=== PATIENT | male | born 1985 | race Caucasian/White ===

== ENCOUNTER 2024-01-27 14:44 | Outpatient (CLI) | payer MEDICAID, SELFPAY ==
[2024-01-27 15:42] LABS: Basophils Absolute Auto 0.1 K/mm3 (0.0-0.1); Basophils Percent Auto 1.2 % (0.2-1.2); Eosinophils Absolute Auto 0.1 K/mm3 (0-0.3); Eosinophils Percent Auto 1.7 % (0-4.4); Hematocrit 42.9 % (42.0-52.0); Hemoglobin 13.9 g/dL (14.0-18.0); Immature Granulocyte Absolute 0.03 K/mm3 (0.00-0.031); Immature Granulocyte Percent A 0.4 % (0-0.5); Lymphocytes Absolute Auto 2.39 K/mm3 (0.9-3.2); Lymphocytes Percent Auto 30.8 % (18.3-44.2); Mean Corpuscular HGB Conc 32.4 g/dl (32-36); Mean Corpuscular Hemoglobin 27.7 pg (26-34); Mean Corpuscular Volume 85.5 fl (80-100); Monocytes Absolute Auto 0.6 K/mm3 (0.1-0.6); Monocytes Percent Auto 8.2 % (2.6-8.5); Neutrophils Absolute Auto 4.5 K/mm3 (1.3-6.7); Neutrophils Percent Auto 57.7 % (45.5-73.1); Platelet Count Result 311 k/mm3 (150-375); Red Blood Count 5.02 M/mm3 (4.6-6.20); Red Cell Distribution Width 13.1 % (11.5-14.5); White Blood Count 7.8 K/mm3 (4.5-10.0)
[2024-01-27 15:58] LABS: Alanine Aminotransferase 65 U/L (6-50); Albumin Level 4.3 g/dL (3.5-5.1); Alkaline Phosphatase 74 U/L (38-126); Anion Gap 11 mmol/L (4-12); Aspartate Amino Transferase 47 U/L (17-59); Bilirubin,Total 0.4 mg/dL (0.2-1.3); Blood Urea Nitrogen 12 mg/dL (9-20); Calcium 9.2 mg/dL (8.4-10.2); Carbon Dioxide 24 mmol/L (22-30); Chloride 107 mmol/L (98-107); Estimated Glomerular Filt Rate > 60; Glucose 95 mg/dL (65-110); Potassium 3.8 mmol/L (3.4-5.0); Sodium 142 mmol/L (137-145)
== END 2024-01-27 14:45 | disposition home or self-care (01) ==
LOC: ANHLAB 14:47
PROVIDERS: Visit Provider Internal Medicine Hematology & Oncology
DX: C71.9 Malignant neoplasm of brain, unspecified (principal)
CPT/HCPCS: 36415; 80053; 85025

== ENCOUNTER 2024-02-17 09:20 | Outpatient (CLI) | payer OTHER, SELFPAY ==
[2024-02-17 09:30] LABS: Basophils Absolute Auto 0.1 K/mm3 (0.0-0.1); Basophils Percent Auto 0.9 % (0.2-1.2); Eosinophils Absolute Auto 0.1 K/mm3 (0-0.3); Eosinophils Percent Auto 1.3 % (0-4.4); Hematocrit 45.1 % (42.0-52.0); Hemoglobin 14.6 g/dL (14.0-18.0); Immature Granulocyte Percent A 1.5 % (0-0.5); Lymphocytes Absolute Auto 1.74 K/mm3 (0.9-3.2); Mean Corpuscular HGB Conc 32.4 g/dl (32-36); Mean Corpuscular Hemoglobin 27.2 pg (26-34); Mean Platelet Volume 9.6 fl (7.4-10.4); Monocytes Absolute Auto 0.7 K/mm3 (0.1-0.6); Monocytes Percent Auto 10.8 % (2.6-8.5); Neutrophils Percent Auto 59.5 % (45.5-73.1); Platelet Count Result 287 k/mm3 (150-375); Red Blood Count 5.37 M/mm3 (4.6-6.20); Red Cell Distribution Width 13.2 % (11.5-14.5); White Blood Count 6.7 K/mm3 (4.5-10.0)
[2024-02-17 09:36] LABS: Blood Urea Nitrogen 12 mg/dL (8-26); Carbon Dioxide 26 mmol/L (22-30); Chloride 103 mmol/L (98-109); Estimated Glomerular Filt Rate > 60; Glucose 79 mg/dL (70-105); Ionized Calcium (POC) 1.21 mmol/L (1.11-1.31); Sodium 142 mmol/L (138-146)
== END 2024-02-17 09:21 | disposition home or self-care (01) ==
LOC: ANHLAB 09:22
PROVIDERS: Visit Provider Internal Medicine Hematology & Oncology
DX: C71.9 Malignant neoplasm of brain, unspecified (principal)
CPT/HCPCS: 36415; 80047; 85025

== ENCOUNTER 2024-03-19 10:32 | Outpatient (CLI) | payer OTHER, SELFPAY ==
[2024-03-19 10:42] LABS: Basophils Absolute Auto 0.1 K/mm3 (0.0-0.1); Basophils Percent Auto 1.2 % (0.2-1.2); Eosinophils Absolute Auto 0.1 K/mm3 (0-0.3); Eosinophils Percent Auto 2.6 % (0-4.4); Hematocrit 45.2 % (42.0-52.0); Hemoglobin 14.6 g/dL (14.0-18.0); Immature Granulocyte Absolute 0.07 K/mm3 (0.00-0.031); Immature Granulocyte Percent A 1.4 % (0-0.5); Lymphocytes Absolute Auto 0.91 K/mm3 (0.9-3.2); Lymphocytes Percent Auto 18.3 % (18.3-44.2); Mean Corpuscular HGB Conc 32.3 g/dl (32-36); Mean Corpuscular Hemoglobin 26.9 pg (26-34); Mean Corpuscular Volume 83.2 fl (80-100); Mean Platelet Volume 8.8 fl (7.4-10.4); Monocytes Absolute Auto 0.6 K/mm3 (0.1-0.6); Monocytes Percent Auto 11.1 % (2.6-8.5); Neutrophils Absolute Auto 3.2 K/mm3 (1.3-6.7); Neutrophils Percent Auto 65.4 % (45.5-73.1); Platelet Count Result 175 k/mm3 (150-375); Red Blood Count 5.43 M/mm3 (4.6-6.20); Red Cell Distribution Width 14.5 % (11.5-14.5)
[2024-03-19 11:53] LABS: Alanine Aminotransferase 36 U/L (6-50); Albumin Level 4.2 g/dL (3.5-5.1); Alkaline Phosphatase 69 U/L (38-126); Anion Gap 8 mmol/L (4-12); Aspartate Amino Transferase 32 U/L (17-59); Bilirubin,Total 0.6 mg/dL (0.2-1.3); Blood Urea Nitrogen 14 mg/dL (9-20); Carbon Dioxide 27 mmol/L (22-30); Chloride 106 mmol/L (98-107); Estimated Glomerular Filt Rate > 60; Glucose 107 mg/dL (65-110); Potassium 4.2 mmol/L (3.4-5.0); Sodium 141 mmol/L (137-145)
== END 2024-03-19 10:33 | disposition home or self-care (01) ==
LOC: ANHLAB 10:33
PROVIDERS: Visit Provider Internal Medicine Hematology & Oncology
DX: C71.9 Malignant neoplasm of brain, unspecified (principal)
CPT/HCPCS: 36415; 80053; 85025

== ENCOUNTER 2024-04-12 12:48 | Outpatient (CLI) | payer OTHER, SELFPAY ==
--- NOTE | ~2024-04-12 | MR_ITS ---
EXAMINATION: MR brain/brain stem wo/w con DATE: 04/12/2024 13:34 INDICATION: Glioma. TECHNIQUE: Magnetic resonance imaging (MRI) of the brain and brainstem was performed without and with 20 mL MultiHance intravenous contrast. COMPARISON: None. FINDINGS: There are changes of resection of the parafalcine frontal lobes and adjacent corpus callosu m. There is increased T2-weighted signal intensity around the area of resection, consistent with glio sis versus vasogenic edema versus changes of radiation therapy. There is no acute ischemic infarct. T here are blood products versus calcification at the right posterior resection margin characterized by increased T1-weighted signal intensity. There is no nodular contrast enhancement to suggest residual or recurrent tumor. There is thickening and enhancement of the dura in the surgical bed, consistent with surgical change. There is ex vacuo dilatation of the frontal horns of the lateral ventricles. Th ere is extensive mucosal thickening in the paranasal sinuses. The orbits are normal. The mastoid air cells are normal. IMPRESSION: 1. No specific evidence of residual or recurrent tumor. Reviewed, dictated and finalized at location A. [facility]
== END 2024-04-12 12:49 | disposition home or self-care (01) ==
PROVIDERS: Visit Provider Radiology Radiation Oncology
DX: C71.8 Malignant neoplasm of overlapping sites of brain (principal)
CPT/HCPCS: 70553; A9577

== ENCOUNTER 2024-06-08 11:19 | Outpatient (CLI) | payer OTHER, SELFPAY ==
--- OUTSIDE RECORDS SUMMARY | 2024-06-08 11:22 | XMS_ITS | Clinical Summary ---
Author Organization [facility] Familia hubbard Kunal Address [address] [place] [address] Care Team Providers Care Rug Repairer Name Role Phone Unavailable Primary Care Provider Unavailabl e Allergies No known active allergies Medications ondansetron (ZOFRAN) 8 mg Tablet Take 1 Tablet (8 mg) by mouth every 8 hours as needed for Nausea/Emesis. 30 Tablet 1 4 Active temozolomide (Temodar) 100 mg capsule Take 4 capsules (400 mg) by mouth daily before breakfast on Days 1 through 5 every 28 days 20 Capsule 5 4 Active Active Problems No known active problems Encounters Date Type Department Care Team Description 04/30/2024 Specialty Pharmacy [facility] [address] [place] [phone] Cristel Nolen, PHARMACIST Specialty Pharmacy Refill Coordination 04/23/2024 Refill [facility] - [place] [address] [place] [phone] Genaro Dubose MD 04/19/2024 Specialty Pharmacy [facility] [address] [place] [phone] Cristel Nolen, PHARMACIST Specialty Pharmacy Clinical Intervention 04/19/2024 Specialty Pharmacy [facility] [address] [place] [phone] Cristel Nolen, PHARMACIST Specialty Pharmacy Prior Auth Coordination 04/19/2024 Orders Only [facility] - [place] [address] [place] [address] Genaro Dubose MD 04/18/2024 4:30 PM TABLET REPAIR Telephone Check Up [facility] - [place] [address] [place] [address] Genaro Dubose MD 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/17/2024 Telephone [facility] - [place] [address] [place] [address] Genaro Dubose MD Missed Appt 03/29/2024 Orders Only [facility] - [place] [address] [place] [address] Genaro Dubose MD 03/23/2024 11:00 AM TABLET REPAIR Office Visit [facility] - [place] [address] [place] [address] Genaro Dubose MD Oligodendroglioma (CMS/HCC) (Primary Dx) 03/21/2024 Orders Only [facility] - [place] [address] [place] [address] Genaro Dubose MD Oligodendroglioma (CMS/HCC) (Primary Dx) from Last 3 Months Family History Medical History Relation Name Comments No Known Problems Brother 1 Heart Disease Brother 2 No Known Problems Child No Known Problems Father No Known Problems Sister Relation Name Status Comments Brother 1 Alive Brother 2 Alive Child Alive Father Mother Alive Sister Alive Social History Tobacco Use Types Packs/Day Years Used Date Smoking Tobacco: Never Tobacco Cessation:Counseling Given: Not Answered Alcohol Use Standard Drinks/Week Comments Yes 0 (1 standard drink = 0.6 oz pure alcohol) on the weekends two or three beers Sex and Gender Information Value Date Recorded Sex Assigned at Not on file Legal Sex Male 3:13 PM CDT Gender Identity Not on file Sexual Orientation Not on file Last Filed Vital Signs Vital Sign Reading Time Taken Comments Blood Pressure 119/90 03/23/2024 10:55 AM TABLET REPAIR Pulse 84 03/23/2024 10:52 AM TABLET REPAIR Temperature 36.9 ??C (98.4 ??F) 03/23/2024 10:52 AM C Respiratory Rate 16 03/23/2024 10:52 AM TABLET REPAIR Oxygen Saturation 95% 03/23/2024 10:52 AM TABLET REPAIR Inhaled Oxygen Concentration - - Weight 98 kg (216 lb) 03/23/2024 10:52 AM TABLET REPAIR Height 182.9 cm (6') 01/27/2024 2:11 PM CDT Body Mass Index 29.29 01/27/2024 2:11 PM CDT Plan of Treatment Upcoming Encounters Date Type Department Care Team (Late st Contact Info) Description 06/08/2024 11:45 AM TABLET REPAIR Office Visit [facility] - [place] [address] [facility] [address] [place] [address] Genaro Dubose MD [address] [facility] [address] [place] [address] Health Maintenance Due Date Last Done Comments Pre-Diabetes and Diabetes Screening 1986 DTAP/TDAP/TD VACCINES (1 - Tdap) 2005 Preventative Visit-Managed Medicaid 2005 INFLUENZA VACCINE (#1) 2023 COVID-19 Vaccine (3 - 2023-2 5 season) 2024 09/14/2020, 08/17/2020 HEPATITIS B VACCINES Completed 05/15/1998, 12/26/1997, 11/21/1997 HPV VACCINES Aged Out No longer eligi ble based on patient's age to complete this topic Procedures Procedure Name Priority Date/Time Associated Diagnosis Comments COMPREHENSIVE METABOLIC PANEL Routine 03/19/2024 10:31 AM TABLET REPAIR CBC WITH DIFFERENTIAL Routine 03/19/2024 8:15 AM TABLET REPAIR from Last 3 Months Results * COMPREHENSIVE METABOLIC PANEL (03/19/2024 10:31 AM TABLET REPAIR) Blood us Genaro Dubose MD CHEMISTRY ORDERABLES Final Resu lt * CBC WITH DIFFERENTIAL (03/19/2024 8:15 AM TABLET REPAIR) Blood us Genaro Dubose MD HEMATOLOGY ORDERABLES Final Res ult from Last 3 Months Insurance MEDICAID [employer]
--- OUTSIDE RECORDS SUMMARY | 2024-06-08 11:22 | XMS_ITS | Continuity of Care Document ---
Author Organization [facility] Address [address] [place] [address] [address] [place] [address] Phone Care Team Providers Care Manager Utilization Name Role Phone Ros Sosa Unavailable Unavailable Procedures Procedure Date Remove Foreign Body From Eye Advance Directives Directive Yes / No Effective Date File Name No Information Encounters Encounter Description Practice Location Reason(s) For Visit Diagnoses Date Provider Providers Copied on Encounter [facility], [address] [place] [address] [address], [place], [place], [id number], [place] tel:[phone] [facility] No Information [address] Sommer. [address] [facility] , [address], [place], [address], [place]. tel:[phone] Family History Family Member Type Diagnosis Age At Onset No Information Payers Payer name Insurance type Covered republican ID Authoriza tion(s) No Information Social History Type Description Quantity Date Captured Comments Sex Male Smoking Status No Information Chief Complaint And Reason For Visit No Information Reason For Referral Reason For Referral No Information History Of Present Illness Encounter Date Complaint History Of Prese nt Illness No Information Functional Status Date Functional Assessmen t No Information Instructions Date Instruction Additional Infor mation No Information Assessments Type Assessment Date No Information Patient Care Teams Name Effective Dates (start - stop) Status Members No Information
--- OUTSIDE RECORDS SUMMARY | 2024-06-08 11:22 | XMS_ITS | Patient Health Summary ---
Author Organization [facility] Address [address] [place] [address] Care Team Providers Care Date Night Caregiver Name Role Phone Unavailable Primary Care Provider Unavailabl e Note from [facility],non-owned Affiliates and Associated Physician Practices is amultiple site organization consisting of ambulatory clinics and hospital sitesin [place], [place], [place]. This disclosure is being madepursuant to the Care Everywhere program and may not contain all information available regarding this patient. Last updated 18.[facility] Allergies No known active allergies Medications * Be aware that medications may not be up to date on this document. Alwaysverify current medications with the patient. * dexAMETHasone (Decadron) 4 MG tablet(Started 11/16/2023) Take 1 (one) tablet by mouth 3 times daily for 1 day, THEN 1 (one) tablet 2 times daily for 2 days,THEN 0.5 (one-half) tablet 3 times daily for 2 days, THEN 0.5 (one-half) tablet 2 times daily for 30 days. * prochlorperazine (Compazine) 10 MG tablet(Started 12/26/2023) Take 1 (one) tablet by mouth every 6 hours as needed for Nausea/Vomiting 11 refills by 12/25/2024 * sulfamethoxazole-trimethoprim (Bactrim; Septra) 400-80 MG tablet(Started 12/26/2023) Take 1 (one) tablet by mouth every Tuesday, Tuesday & Tuesday 3 refills by 12/25/2024 * temozolomide (Temodar) 140 MG capsule(Started 01/06/2024) TAKE ONE CAPSULE BY MOUTH ONCE DAILY WITH 20MG CAPSULE, ON AN EMPTY STOMACH ONE HOUR BEFORE RADIATION FOR 42 DAYS * temozolomide (Temodar) 20 MG capsule(Started 01/06/2024) TAKE ONE CAPSULE BY MOUTH ONCE DAILY WITH 140MG CAPSULE, ON AN EMPTY STOMACH, ONE HOUR BEFORE RADIATION FOR 42 DAYS Active Problems Problem Noted Date Diagnosed Date 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 Monthly or less 11/03/2023 Q2: How many drinks containi ng alcohol do you have on a typical day when you are drinking? 1 or 2 11/03/2023 Q3: How often do you have si x or more drinks on one occasion? Never 11/03/2023 Overall Financial Resource Strain (CARDIA) Answe r Date Recorded How hard is it for you to pa y for the very basics like food, housing, medical care, and heating? Not hard at all 11/03/2023 PHQ-2 Answer Date Recorded Patient Health Questionnaire-2 Score 0 11/30/2023 [facility] - Occupational Stress Questionnaire Answer Date Recorded Do you feel stress - tense, restless, nervous, or anxious, or unable to sleep at night because your mind is troubled all the time - these days? Only a little 11/03/2023 Hunger Vital Sign Answer Date Recorded Within the past 12 months, y ou worried that your food would run out before you got the money to buy more. Never true 11/03/19 Within the past 12 months, t he food you bought just didn't last and you didn't have money to get more. Never true 11/03/2023 PRAPARE - Transportation Answer Date Re corded In the past 12 months, has l ack of transportation kept you from medical appointments or from getting medications? No 10/08 In the past 12 months, has l ack of transportation kept you from meetings, work, or from getting things needed for daily living? No 11/03/2023 Housing Stability Vital Sign Answer Andrey e Recorded In the last 12 months, was t here a time when you were not able to pay the mortgage or rent on time? No 11/03/2023 In the last 12 months, how many places have you lived? 1 11/03/2023 In the last 12 months, was t here a time when you did not have a steady place to sleep or slept in a skilled nursing (including now)? No 11/03/2023 Sex and Gender Information Value Date Recorded Sex Assigned at Not on file Gender Identity Not on file Sexual Orientation Not on file Last Filed Vital Signs Vital Sign Reading Time Taken Comments Blood Pressure 112/80 12/27/2023 9:45 AM CDT Pulse 84 12/27/2023 9:45 AM CDT Temperature 36.8 ??C (98.3 ??F) 12/27/2023 9:45 AM CD T Respiratory Rate 18 12/27/2023 9:45 AM CDT Oxygen Saturation 96% 12/27/2023 9:45 AM CDT Inhaled Oxygen Concentration 30% 11/10/2023 8 :18 AM CDT Weight 94.8 kg (209 lb) 12/27/2023 9:45 AM CDT Height 181.3 cm (5' 11.38 ) 12/26/2023 4:18 PM C DT Body Mass Index 28.84 12/26/2023 4:18 PM CDT Medical Devices Implanted Type Area Geological Survey Field Assistant Device Identifier Shelf Expiration Date Model / Serial / Lot Graft Tissue Drgn + Bvn Clgn Mtrx 5x4in Implanted:Qty: 1 on 11/09/2023 by Guillermo Tapia MD at [facility] Brain [employer] [id number] / / Cover Bur Hl .4mm 7mm Unv Neuro Iii Ti Implanted:Qty: 4 on 11/09/2023 by Miky Barger MD at [facility] Cranial [place] Craniomaxillofacial [id number] / / Screw 1.5mm 4mm Slf Drl Ax Stab Unv Implanted:Qty: 15 on 11/09/2023 by Miky Barger MD at [facility] Cranial [place] Craniomaxillofacial [id number] / / Cerebroflo Evd Catheter Implanted:Qty: 1 on 11/09/2023 by Miky Barger MD at [facility] Brain 01/13/[id number] [phone] Procedures * MRI BRAIN WWO CONTRAST(Performed 12/24/2023) Performed for Brain tumor (HCC) * CREATININE - POCT INTERFACED(Performed 12/24/2023) * APHERESIS/TRANSFUSION ORDER(Performed 11/16/2023) * CT HEAD WO CONTRAST(Performed 11/15/2023) Performed for Brain mass * DIFFERENTIAL MANUAL(Performed 11/15/2023) * PHOSPHORUS BLOOD(Performed 11/15/2023) * MAGNESIUM BLOOD(Performed 11/15/2023) * PTT SLH(Performed 11/15/2023) * PT-INR SLH(Performed 11/15/2023) * BASIC METABOLIC PANEL (CALCIUM TOTAL)(Performed 11/15/2023) * CBC W AUTO DIFFERENTIAL(Performed 11/15/2023) * GLUCOSE - POINT OF CARE(Performed 11/14/2023) * DIFFERENTIAL MANUAL(Performed 11/14/2023) * PTT SLH(Performed 11/14/2023) * PT-INR SLH(Performed 11/14/2023) * BASIC METABOLIC PANEL (CALCIUM TOTAL)(Performed 11/14/2023) * CBC W AUTO DIFFERENTIAL(Performed 11/14/2023) * GLUCOSE - POINT OF CARE(Performed 11/13/2023) * GLUCOSE - POINT OF CARE(Performed 11/13/2023) * GLUCOSE - POINT OF CARE(Performed 11/13/2023) * GLUCOSE - POINT OF CARE(Performed 11/13/2023) * DIFFERENTIAL MANUAL(Performed 11/13/2023) * PTT SLH(Performed 11/13/2023) * PT-INR SLH(Performed 11/13/2023) * BASIC METABOLIC PANEL (CALCIUM TOTAL)(Performed 11/13/2023) * CBC W AUTO DIFFERENTIAL(Performed 11/13/2023) * PREPARE RBC LEUKOREDUCED UNIT(Performed 11/13/2023) * GLUCOSE - POINT OF CARE(Performed 11/12/2023) * GLUCOSE - POINT OF CARE(Performed 11/12/2023) * MRI BRAIN WWO CONTRAST(Performed 11/12/2023) Performed for Brain mass * GLUCOSE - POINT OF CARE(Performed 11/12/2023) * GLUCOSE - POINT OF CARE(Performed 11/12/2023) * OT EVAL AND TREAT(Performed 11/12/2023) * DIFFERENTIAL MANUAL(Performed 11/12/2023) * PTT SLH(Performed 11/12/2023) * PT-INR SLH(Performed 11/12/2023) * BASIC METABOLIC PANEL (CALCIUM TOTAL)(Performed 11/12/2023) * CBC W AUTO DIFFERENTIAL(Performed 11/12/2023) * GLUCOSE - POINT OF CARE(Performed 11/11/2023) * GLUCOSE - POINT OF CARE(Performed 11/11/2023) * DIFFERENTIAL MANUAL(Performed 11/11/2023) * PTT SLH(Performed 11/11/2023) * PT-INR SLH(Performed 11/11/2023) * BASIC METABOLIC PANEL (CALCIUM TOTAL)(Performed 11/11/2023) * CBC W AUTO DIFFERENTIAL(Performed 11/11/2023) * TRIGLYCERIDES BLOOD(Performed 11/11/2023) * GLUCOSE - POINT OF CARE(Performed 11/10/2023) * GLUCOSE - POINT OF CARE(Performed 11/10/2023) * EXTUBATION(Performed 11/10/2023) * CT HEAD WO CONTRAST(Performed 11/10/2023) Performed for Brain mass * DIFFERENTIAL MANUAL(Performed 11/10/2023) * PTT SLH(Performed 11/10/2023) * PT-INR SLH(Performed 11/10/2023) * BASIC METABOLIC PANEL (CALCIUM TOTAL)(Performed 11/10/2023) * CBC W AUTO DIFFERENTIAL(Performed 11/10/2023) * CT HEAD WO CONTRAST(Performed 11/09/2023) Performed for Brain mass * TRANSFUSE FRESH FROZEN PLASMA UNIT(S)(Performed 11/09/2023) * PERIPHERAL IV NOTE(Performed 11/09/2023) * CBC W/O DIFFERENTIAL(Performed 11/09/2023) Performed for Brain mass * TRANSFUSE RED BLOOD CELL LEUKOREDUCED UNIT(S)(Performed 11/09/2023) * PREPARE FFP UNIT(S)(Performed 11/09/2023) * PREPARE FFP UNIT(S)(Performed 11/09/2023) * PREPARE RBC LEUKOREDUCED UNIT(Performed 11/09/2023) Performed for Brain mass * BLOOD GAS+COOX+LYTES+METAB ARTERIAL POCT(Performed 11/09/2023) * MRI BRAIN WWO CONT INTRAOP(Performed 11/09/2023) Performed for Brain mass * PERIPHERAL BLOCK(Performed 11/09/2023) * BLOOD GAS+COOX+LYTES+METAB ARTERIAL POCT(Performed 11/09/2023) * BLOOD GAS ART+LYTES+METAB+COOX POC NOTIF(Performed 11/09/2023) Performed for Brain mass * FISH 1P/19Q(Performed 11/09/2023) Performed for Brain mass * IDH1+IDH2 MUTATION ANALYSIS TISSUE(Performed 11/09/2023) Performed for Brain mass * BLOOD GAS ART+LYTES+METAB+COOX POC NOTIF(Performed 11/09/2023) Performed for Brain mass * PATHOLOGY TISSUE(Performed 11/09/2023) Performed for Brain mass * LAB MISC TEST (NOT BLOOD)(Performed 11/09/2023) Performed for Pneumocephalus * LAB MISC TEST (NOT BLOOD)(Performed 11/09/2023) Performed for Pneumocephalus * BLOOD GAS+COOX+LYTES+METAB ARTERIAL POCT(Performed 11/09/2023) * BLOOD GAS ART+LYTES+METAB+COOX POC NOTIF(Performed 11/09/2023) Performed for Brain mass * ENDOTRACHEAL TUBE NOTE(Performed 11/09/2023) * ARTERIAL LINE NOTE(Performed 11/09/2023) * ME OPEN SKULL INFRATENT EXPLORE(Performed 11/09/2023) Performed for Brain mass * GLUCOSE - POINT OF CARE(Performed 11/09/2023) * BLOOD TYPE VERIFICATION(Performed 11/09/2023) * TYPE + SCREEN PANEL(Performed 11/09/2023) * PTT SLH(Performed 11/09/2023) * PT-INR SLH(Performed 11/09/2023) * BASIC METABOLIC PANEL (CALCIUM TOTAL)(Performed 11/09/2023) * CBC W AUTO DIFFERENTIAL(Performed 11/09/2023) * GLUCOSE - POINT OF CARE(Performed 11/09/2023) * GLUCOSE - POINT OF CARE(Performed 11/08/2023) * CT HEAD WO CONTRAST(Performed 11/08/2023) Performed for Brain mass * GLUCOSE - POINT OF CARE(Performed 11/08/2023) * GLUCOSE - POINT OF CARE(Performed 11/08/2023) * PTT SLH(Performed 11/08/2023) * PT-INR SLH(Performed 11/08/2023) * BASIC METABOLIC PANEL (CALCIUM TOTAL)(Performed 11/08/2023) * CBC W AUTO DIFFERENTIAL(Performed 11/08/2023) * GLUCOSE - POINT OF CARE(Performed 11/07/2023) * GLUCOSE - POINT OF CARE(Performed 11/07/2023) * GLUCOSE - POINT OF CARE(Performed 11/07/2023) * GLUCOSE - POINT OF CARE(Performed 11/07/2023) * PTT SLH(Performed 11/07/2023) * PT-INR SLH(Performed 11/07/2023) * BASIC METABOLIC PANEL (CALCIUM TOTAL)(Performed 11/07/2023) * CBC W AUTO DIFFERENTIAL(Performed 11/07/2023) * GLUCOSE - POINT OF CARE(Performed 11/06/2023) * GLUCOSE - POINT OF CARE(Performed 11/06/2023) * GLUCOSE - POINT OF CARE(Performed 11/06/2023) * GLUCOSE - POINT OF CARE(Performed 11/06/2023) * PT-INR SLH(Performed 11/06/2023) * BASIC METABOLIC PANEL (CALCIUM TOTAL)(Performed 11/06/2023) * CBC W AUTO DIFFERENTIAL(Performed 11/06/2023) * GLUCOSE - POINT OF CARE(Performed 11/05/2023) * GLUCOSE - POINT OF CARE(Performed 11/05/2023) * GLUCOSE - POINT OF CARE(Performed 11/05/2023) * EKG 12-LEAD(Performed 11/05/2023) Performed for Brain mass * GLUCOSE - POINT OF CARE(Performed 11/05/2023) * BASIC METABOLIC PANEL (CALCIUM TOTAL)(Performed 11/05/2023) * CBC W AUTO DIFFERENTIAL(Performed 11/05/2023) * GLUCOSE - POINT OF CARE(Performed 11/05/2023) * GLUCOSE - POINT OF CARE(Performed 11/04/2023) * MRI BRAIN WO CONTRAST(Performed 11/04/2023) Performed for Brain mass * GLUCOSE - POINT OF CARE(Performed 11/04/2023) * BASIC METABOLIC PANEL (CALCIUM TOTAL)(Performed 11/04/2023) * CBC W AUTO DIFFERENTIAL(Performed 11/04/2023) * GLUCOSE - POINT OF CARE(Performed 11/04/2023) * GLUCOSE - POINT OF CARE(Performed 11/03/2023) * CT HEAD WO CONTRAST(Performed 11/03/2023) Performed for Brain mass * CT ANGIO BRAIN(Performed 11/03/2023) Performed for Brain mass * GLUCOSE - POINT OF CARE(Performed 11/03/2023) * MRI BRAIN WWO CONTRAST(Performed 11/03/2023) Performed for Brain mass * CT CHEST ABDOMEN PELVIS W CONT(Performed 11/03/2023) Performed for Brain mass * TEG 6 GLOBAL HEMOSTASIS W/ LYSIS(Performed 11/03/2023) * TEG 6S PLATELET MAPPING(Performed 11/03/2023) * PT-INR SLH(Performed 11/03/2023) * CT HEAD WO CONTRAST(Performed 11/03/2023) Performed for Chronic nonintractable headache, unspecified headache type * PT-INR SLH(Performed 11/02/2023) * LIPASE BLOOD(Performed 11/02/2023) * COMPREHENSIVE METABOLIC PANEL(Performed 11/02/2023) * CBC W AUTO DIFFERENTIAL(Performed 11/02/2023) Results * MRI BRAIN WWO CONTRAST (12/24/2023 8:24 AM CDT) Only the most recent of3 resultswithin the time period is included. Anatomical Region Laterality Modality Head Magnetic Resonan ce 12/31/2023 12:3 3 PM CDT Impressions 12/31/2023 12:45 PM CDT IMPRESSION: 1. Evolving postoperative changes of bifrontal craniotomy for resection of a mass involving the bilateral frontal lobes with decrease vasogenic edema surrounding the resection cavity as detailed above. 2. A small amount of irregular/linear enhancement along the resection margins likely represent postsurgical changes, although residual tumor cannot be excluded. In addition, enhancement can be obscured by the presence of intrinsic T1 intensities of the blood product within the resection cavity. Continued short-term follow-up brain MRI without and with contrast is recommended to monitor interval change. > Interpreting Provider: Kassandra Mast MD on 12/31/2023 12:45 PM Narrative 12/31/2023 12:45 PM CDT PROCEDURE: ??MRI BRAIN WWO CONTRAST, DATE/TIME OF EXAM: ??12/24/2023 8:24 AM, LOCATION ??[facility] INDICATION: D49.6: Brain tumor (HCC) ADDITIONAL CLINICAL INFORMATION: Ordering Provider Reason For Exam: ??eval for post op changes Technologist Note: Additional: TECHNIQUE: MRI of the brain was performed prior to and following the uneventful administration of intravenous contrast according to a tumor protocol. CONTRAST: GADOBUTROL 1 MMOL/ML IV SSM SO:8.5 mL COMPARISON: 11/12/2023. FINDINGS: Redemonstration of postoperative changes of bifrontal craniotomy for resection of a mass involving the bilateral frontal lobes. Pneumocephalus has resolved. The extra-axial fluid collection underlying the craniotomy site has decreased. A large resection cavity is again noted involving the medial aspect of the frontal lobes and the anterior corpus callosum. The hemorrhage in the resection cavity and the vasogenic edema surrounding the resection cavity have decreased since the prior study with decreased mass effect on the adjacent structures and the frontal horns of the lateral ventricles. Pachymeningeal enhancement in the frontal regions is likely postoperative changes. There is a small amount of irregular/linear enhancement along the resection margins. However, enhancement can be obscured by the presence of intrinsic T1 intensities of the blood product within the resection cavity. No evidence of acute cerebral infarction is seen. No evidence of acute or chronic hemorrhage is identified. There is mild cerebral volume loss with associated ex vacuo ventricular dilatation. No midline shift. The posterior fossa, brainstem, and craniocervical junction appear normal. The visualized portions of the orbits, paranasal sinuses, and mastoids appear normal. Normal flow voids are demonstrated in the carotid arteries and basilar artery. The calvarium and visualized cervical spine appear normal. Procedure Note Kassandra Mast MD - 12/31/2023 PROCEDURE: MRI BRAIN WWO CONTRAST, DATE/TIME OF EXAM: 12/24/2023 8:24AM, LOCATION [facility] INDICATION: D49.6: Brain tumor (HCC) ADDITIONAL CLINICAL INFORMATION: Ordering Provider Reason For Exam: eval for post op changes Technologist Note: Additional: TECHNIQUE: MRI of the brain was performed prior to and following the uneventful administration of intravenous contrast according to a tumor protocol. CONTRAST: GADOBUTROL 1 MMOL/ML IV SSM SO:8.5 mL COMPARISON: 11/12/2023. FINDINGS: Redemonstration of postoperative changes of bifrontal craniotomy for resection of a mass involving the bilateral frontal lobes.Pneumocephalus has resolved. The extra-axial fluid collection underlying the craniotomy site has decreased. A large resection cavity is again noted involvingthe medial aspect of the frontal lobes and the anterior corpus callosum. The hemorrhage in the resection cavity and the vasogenic edema surroundingthe resection cavity have decreased since the prior study with decreasedmass effect on the adjacent structures and the frontal horns of the lateral ventricles. Pachymeningeal enhancement in the frontal regions is likely postoperative changes. There is a small amount of irregular/linear enhancement along theresection margins. However, enhancement can be obscured by the presence ofintrinsic T1 intensities of the blood product within the resection cavity. No evidence of acute cerebral infarction is seen. No evidence of acuteor chronic hemorrhage is identified. There is mild cerebral volume losswith associated ex vacuo ventricular dilatation. No midline shift. Theposterior fossa, brainstem, and craniocervical junction appear normal. The visualized portions of the orbits, paranasal sinuses, and mastoids appear normal. Normal flow voids are demonstrated in the carotidarteries and basilar artery. The calvarium and visualized cervical spine appear normal. IMPRESSION: 1. Evolving postoperative changes of bifrontal craniotomy for resectionof a mass involving the bilateral frontal lobes with decrease vasogenicedema surrounding the resection cavity as detailed above. 2. A small amount of irregular/linear enhancement along the resection margins likely represent postsurgical changes, although residual tumor cannot be excluded. In addition, enhancement can be obscured by the presence of intrinsic T1 intensities of the blood product within the resection cavity. Continued short-term follow-up brain MRI without andwith contrast is recommended to monitor interval change. > Interpreting Provider: Kassandra Mast MD on 12/31/2023 12:45 PM Ming Sierra MD MR ORDERABLES * CREATININE - POCT INTERFACED (12/24/2023 7:34 AM CDT) Creatinine POCT 0.87 0.30 - 1.30 mg/dL 12/24/2023 8:17 AM CDT [facility] Comment:Range ok for MRI eGFR >90 >=90 mL/min/1.7 3 m2 12/24/2023 8:17 AM CDT [facility] Blood BLOOD SPECIMEN / Unknown 12/24/2023 7:34 AM CDT 12/24/2023 8:17 AM CDT Ming Sierra MD LAB - POINT OF CARE ORDERABLES [facility] [address] [place] [address], [facility] [phone] * APHERESIS/TRANSFUSION ORDER (11/16/2023 11:29 AM CDT) Narrative 11/16/2023 11:29 AM CDT Ordered by an unspecified provider. Scanned Document NURSING - VITAL SIGN S AND ASSESSMENT * CT HEAD WO CONTRAST (11/15/2023 4:51 AM CDT) Only the most recent of6 resultswithin the time period is included. Anatomical Region Laterality Modality Head Computed Tomogra phy 11/15/2023 5:00 AM CDT Impressions 11/15/2023 2:38 PM CDT IMPRESSION: Comparison is made to head CT from 11/10/2023: 1.Expected evolving postoperative changes of bifrontal craniotomy for resection of a frontal lobe mass.. Stable position of the left frontal approach drain terminating in the inferior aspect of the surgical bed. 2.No interval change in the moderate to large volume blood products within the surgical resection cavity along the medial aspect of the bilateral frontal lobes. 3.Interval reduced pneumocephalus along the bilateral frontal lobe/subjacent to the craniotomy site with the increased extra-axial blood products with hyperdense/acute blood products measuring about 9 mm in thickness suggesting evolving posttreatment changes.. No interval change in the caliber of ventricles. No interval change in the mass localized mass effect. No evidence of midline shift or evidence of herniation. The report is dictated by Lokesh Alston MD ??(senior vice president and chief information officer) IViv MD have personally reviewed and interpreted this examination/study. > Interpreting Provider: Viv Bowman MD on 11/15/2023 2:38 PM Narrative 11/15/2023 2:38 PM CDT PROCEDURE: ??CT HEAD WO CONTRAST, DATE/TIME OF EXAM: ??11/15/2023 4:52 AM, LOCATION ??[facility] INDICATION: G93.89: Brain mass ADDITIONAL CLINICAL INFORMATION: Ordering Provider Reason For Exam: ??post op Technologist Note: Additional: EXAMINATION: Computed tomography (CT) of the head without contrast TECHNIQUE: CT of the head was performed without contrast according to standard protocol. CT dose reduction technique was used, including Automated Exposure Control. COMPARISON: Head CT 11/10/2023 FINDINGS: Redemonstrated are evolving postoperative changes of bifrontal craniotomy for resection of a frontal lobe mass. Unchanged position of the left frontal approach drain terminating within the surgical bed. Decreased extra-axial pneumocephalus along the craniotomy with residual minimal foci of gas. Small amount of extra-axial blood products noted subjacent to the cranioplasty site measuring up to 9 mm in thickness (image 15, series 5 appears slightly increased compared to prior study. Small amount of extra-axial hypodense collection also noted along the left anterior frontal lobe could be secondary to evolving posttreatment changes with small amount of fluid (image 16, 15, series 4). Intraparenchymal blood products within the surgical resection cavity again noted and appears grossly unchanged compared to prior study when the measured in a similar fashion, measuring approximately approximately7.1 x 3.9 x 5.1 cm (image 18, series 5 image 23, series 2). Increased prominence of a small volume hypodense subdural collection along the right cerebral convexity up to 3 mm in maximum thickness (series 5 image 38). Trace blood products along the posterior falx. There is persistent mass effect localized mass effect with effacement of the frontal sulci and slight effacement of the frontal horns of the lateral ventricles.. The ventricles are nondilated and unchanged in caliber. Unchanged patency of the basilar cisterns. No midline shift. The basal cisterns are patent. The thorpe-white matter differentiation otherwise appears normal. Other than mild paranasal sinus disease, the visualized portions of the orbits, paranasal sinuses, and mastoids appear normal. Redemonstrated expected postoperative subcutaneous emphysema, soft tissue swelling and evolving blood products within the scalp over the craniotomy site. Procedure Note Viv Bowman MD - 11/15/2023 PROCEDURE: CT HEAD WO CONTRAST, DATE/TIME OF EXAM: 11/15/2023 4:52 AM, LOCATION [facility] INDICATION: G93.89: Brain mass ADDITIONAL CLINICAL INFORMATION: Ordering Provider Reason For Exam: post op Technologist Note: Additional: EXAMINATION: Computed tomography (CT) of the head without contrast TECHNIQUE: CT of the head was performed without contrast according to standard protocol. CT dose reduction technique was used, including Automated Exposure Control. COMPARISON: Head CT 11/10/2023 FINDINGS: Redemonstrated are evolving postoperative changes of bifrontalcraniotomy for resection of a frontal lobe mass. Unchanged position of the left frontal approach drain terminating within the surgical bed. Decreased extra-axial pneumocephalus along the craniotomy with residual minimalfoci of gas. Small amount of extra-axial blood products noted subjacent tothe cranioplasty site measuring up to 9 mm in thickness (image 15, series 5 appears slightly increased compared to prior study. Small amount of extra-axial hypodense collection also noted along the left anteriorfrontal lobe could be secondary to evolving posttreatment changes with smallamount of fluid (image 16, 15, series 4). Intraparenchymal blood products within the surgical resection cavityagain noted and appears grossly unchanged compared to prior study when the measured in a similar fashion, measuring approximately approximately7.1x 3.9 x 5.1 cm (image 18, series 5 image 23, series 2). Increased prominence of a small volume hypodense subdural collectionalong the right cerebral convexity up to 3 mm in maximum thickness (series 5 image 38). Trace blood products along the posterior falx. There is persistent mass effect localized mass effect with effacement of the frontal sulci and slight effacement of the frontal horns of thelateral ventricles.. The ventricles are nondilated and unchanged in caliber. Unchanged patency of the basilar cisterns. No midline shift. The basal cisterns are patent. The thorpe-white matter differentiation otherwise appears normal. Other than mild paranasal sinus disease, the visualized portions of the orbits, paranasal sinuses, and mastoids appear normal. Redemonstrated expected postoperative subcutaneous emphysema, softtissue swelling and evolving blood products within the scalp over thecraniotomy site. IMPRESSION: Comparison is made to head CT from 11/10/2023: 1.Expected evolving postoperative changes of bifrontal craniotomy for resection of a frontal lobe mass.. Stable position of the left frontal approach drain terminating in the inferior aspect of the surgical bed. 2.No interval change in the moderate to large volume blood productswithin the surgical resection cavity along the medial aspect of the bilateral frontal lobes. 3.Interval reduced pneumocephalus along the bilateral frontal lobe/subjacent to the craniotomy site with the increased extra-axialblood products with hyperdense/acute blood products measuring about 9 mm in thickness suggesting evolving posttreatment changes.. No interval change in the caliber of ventricles. No interval change inthe mass localized mass effect. No evidence of midline shift or evidence of herniation. The report is dictated by Lokesh Alston MD (senior vice president and chief information officer) I, Viv Bowman MD have personally reviewed and interpreted this examination/study. > Interpreting Provider: Viv Bowman MD on 11/15/2023 2:38 PM Joanie Valentine PROPERTY CLAIMS ADJUSTER-SUPERVISOR FORCE ADJUSTMENT CT ORDERABLES * (ABNORMAL) PTT [facility] (11/15/2023 4:30 AM CDT) Only the most recent of9 resultswithin the time period is included. APTT 19.8(L) 23.0 - 38.4 Seconds 11/15/2023 5:13 AM CDT [facility] Comment:Suggested therapeuti c range for full dose I.V. unfractionated heparin therapy for venous thromboembolism is 71 to 109 seconds. Blood BLOOD SPECIMEN / Unknown Venipuncture / Unknown 11/15/2023 4:30 AM CDT 11/15/2023 4:39 AM CDT Alana Guerrero MD LAB - COAGULATION OR DERABLES [facility] [address] [place] [address], [facility] [phone] * PT-INR [facility] (11/15/2023 4:30 AM CDT) Only the most recent of12 resultswithin the time period is included. PT 12.3 12.1 - 14.8 Seconds 11/15/2023 5:13 AM [facility] INR 1.0 See Comment 11/15/2023 5:13 AM [facility] Comment:The suggested therap eutic range for standard coumadin (warfarin) therapy is an INR of 2.0-3.0. For high-risk patients (Mechanical Mitral Valve Prosthesis, etc.), the suggested prophylactic therapeutic range is an INR of 2.5-3.5. Blood BLOOD SPECIMEN / Unknown Venipuncture / Unknown 11/15/2023 4:30 AM CDT 11/15/2023 4:39 AM CDT Alana Guerrero MD LAB - COAGULATION OR DERABLES Performing Organization Address City/State/[facility] Co de Phone Number [facility] [address] [place] [phone], [facility] [phone] * (ABNORMAL) DIFFERENTIAL MANUAL (11/15/2023 4:30 AM CDT) Only the most recent of6 resultswithin the time period is included. Pathologist [facility] Neutrophil % 85(H) 41 - 74 % 11/15/2023 5:37 AM [facility] Lymphocyte % 6(L) 17 - 47 % 11/15/2023 5:37 AM [facility] Monocyte % 6 3 - 11 % 11/15/2023 5:37 AM [facility] Metamyelocyte % 2(H) 0% % 5:37 AM [facility] Promyelocyte % 1(H) 0% % 11/15/2023 5:37 AM [facility] Neutrophil Absolute 21.08(H) 1.60 - 7.50 x10E9/L 11/15/2023 5:37 AM [facility] Lymphocyte Absolute 1.49 1.00 - 4.40 x10E9/L 11/15/2023 5:37 AM [facility] Monocyte Absolute 1.49(H) 0.15 - 1.00 x10E9/L 11/15/2023 5:37 AM [facility] RBC Morphology REVIEWED 11/15/2023 5:37 AM [facility] Pappenheimer Bodies FEW(A) (none) 11/15/2023 5:37 AM T [facility] Stomatocytes MODERATE(A) (none) 11/15/2023 5:37 AM [facility] Blood BLOOD SPECIMEN / Unknown Venipuncture / Unknown 11/15/2023 4:30 AM CDT 11/15/2023 4:39 AM CDT Severino Law MD LAB - HEMATOLOGY ORD ERABLES [facility] [address] [place] [address], [facility] [phone] * (ABNORMAL) CBC W AUTO DIFFERENTIAL (11/15/2023 4:30 AM CDT) Only the most recent of13 resultswithin the time period is included. WBC 24.8(H) 4.0 - 10.7 x10E9/L 11/15/2023 5:37 AM [facility] RBC Count 2.94(L) 4.30 - 5.80 x10E12/L 11/15/2023 5:37 AM [facility] Hemoglobin 8.6(L) 13.3 - 17.5 g/dL 11/15/2023 5:37 AM [facility] Hematocrit 25.7(L) 38.7 - 51.1 % 11/15/2023 5:37 AM [facility] MCV 87.4 80.0 - 98.0 fL 11/15/2023 5:37 AM [facility] MCH 29.3 26.7 - 33.6 pg 11/15/2023 5:37 AM [facility] MCHC 33.5 31.7 - 36.3 g/dL 11/15/2023 5:37 AM [facility] RDW-CV 14.1 11.3 - 14.8 % 11/15/2023 5:37 AM [facility] Platelet Count 285 150 - 420 x10E9/L 11/15/2023 5:37 AM [facility] MPV 10.2 7.8 - 11.4 fL 11/15/2023 5:37 AM [facility] NRBC 0.2(H) <=0.0 /100 WBC 11/15/2023 5:37 AM [facility] Blood BLOOD SPECIMEN / Unknown Venipuncture / Unknown 11/15/2023 4:30 AM CDT 11/15/2023 4:39 AM CDT Severino Law MD LAB - HEMATOLOGY ORD ERABLES [facility] [address] [place] [address], [facility] [phone] * (ABNORMAL) BASIC METABOLIC PANEL (CALCIUM TOTAL) (11/15/2023 4:30 AM CDT) Only the most recent of12 resultswithin the time period is included. BUN 20 7 - 26 mg/dL 11/15/2023 8:48 AM [facility] Creatinine 0.64(L) 0.71 - 1.16 mg/dL 11/15/2023 8:48 AM [facility] Sodium 138 136 - 145 mmol/L 11/15/2023 8:48 AM [facility] Potassium 4.4 3.5 - 4.5 mmol/L 11/15/2023 8:48 AM [facility] Chloride 105 98 - 107 mmol/L 11/15/2023 8:48 AM [facility] CO2 27 22 - 29 mmol/L 11/15/2023 8:48 AM [facility] Glucose 119(H) 70 - 115 mg/dL 11/15/2023 8:48 AM [facility] Calcium 8.4 8.4 - 10.2 mg/dL 11/15/2023 8:48 AM [facility] Anion Gap 6 6 - 16 11/15/2023 8:48 AM CDT [facility] BUN/Creatinine Ratio 31(H) 7 - 23 11/15/2023 8:48 AM CDT [facility] Osmolality Calculated 290 275 - 295 mOsm/kg 11/15/2023 8:48 AM CDT [facility] eGFR by CKD-EPI >90 >=90 mL/min/1.7 3 m2 11/15/2023 8:48 AM CDT [facility] Blood BLOOD SPECIMEN / Unknown Venipuncture / Unknown 11/15/2023 4:30 AM CDT 11/15/2023 4:37 AM CDT Severino Law MD LAB - CHEMISTRY ISIDRO DEJESUS [address] [address], [place] [phone] * PHOSPHORUS BLOOD (11/15/2023 4:30 AM CDT) Phosphorus 3.1 2.8 - 5.1 mg/dL 11/15/2023 8:48 AM CDT [facility] Blood BLOOD SPECIMEN / Unknown Venipuncture / Unknown 11/15/2023 4:30 AM CDT 11/15/2023 4:37 AM CDT Garett Jarrell MD LAB - CHEMISTRY ORD BRYCE Performing Organization Address City/[facility]/ZIP Co de Phone Number [address] [address], [place] [phone] * MAGNESIUM BLOOD (11/15/2023 4:30 AM CDT) Magnesium 2.0 1.6 - 2.6 mg/dL 11/15/2023 8:48 AM CDT [facility] Blood BLOOD SPECIMEN / Unknown Venipuncture / Unknown 11/15/2023 4:30 AM CDT 11/15/2023 4:37 AM CDT Garett Jarrell MD LAB - CHEMISTRY ORD ERABLES [address] [place] [address], [place] [phone] * GLUCOSE - POINT OF CARE (11/14/2023 6:37 AM CDT) Only the most recent of36 resultswithin the time period is included. Glucose WB/POC 85 70 - 115 mg/dL 11/14/2023 7:46 AM CDT [facility] Specimen Type Arterial 11/14/2023 7:46 AM CDT [facility] Blood BLOOD SPECIMEN / Unknown 11/14/2023 6:37 AM CDT 11/14/2023 7:46 AM CDT Garett Jarrell MD LAB - POINT OF CARE ORDERABLES [address] [address], [place] [phone] * PREPARE (CROSSMATCH) RBC UNIT(S), 2 Units (11/13/2023 1:17 AM CDT) Only the most recent of2 resultswithin the time period is included. Pathologist [facility] Unit Description N/A [facility] Blood Bank BLOOD SPECIMEN / Unknown 11/09/2023 3:21 AM CDT Nida Lezama MD LAB - BLOOD BANK ORDERABLES Performing Organization Address City/[facility]/ZIP Co de Phone Number [facility] [address] [place] [phone], [place] [phone] * (ABNORMAL) TRIGLYCERIDES BLOOD (11/11/2023 4:05 AM CDT) Triglycerides 257(H) <150 mg/dL 11/11/2023 4:52 AM CDT [facility] Comment: ATP III Classification of Triglycerides: ?<150 mg/dL: ??Normal ? 150 - 199 mg/dL: ??Borderline High ? 200 - 400 mg/dL: ??High ?>500 mg/dL: ??Very High Blood BLOOD SPECIMEN / Unknown Venipuncture / Unknown 11/11/2023 4:05 AM CDT 11/11/2023 4:25 AM CDT Guicho Gill MD LAB - CHEMISTRY ISIDRO DEJESUS [facility] [address] [place] [address], [facility] [phone] * TRANSFUSE FRESH FROZEN PLASMA UNIT(S) (11/09/2023 8:17 PM CDT) Nida Lezama MD NURSING - B LOOD PROD TRANSFUSION * TRANSFUSE RED BLOOD CELL LEUKOREDUCED UNIT(S) (11/09/2023 8:14 PM CDT) Nida Lezama MD NURSING - B LOOD PROD TRANSFUSION * IV PLACEMENT PERFORMABLE (11/09/2023 7:53 PM CDT) Narrative Kaveh Johnson MD - 11/09/2023 7:53 PM CDT Kaveh Johnson MD ? 11/09/2023 ??7:54 PM Peripheral IV Line Placement: Patient Location: ??OR Insertion Time: ??11/09/2023 7:53 PM Procedure: IV start (97201) Procedure Section: ?? Skin Prep: alcohol. Orientation: left Location: foot Catheter Gauge: 20 Number of Attempts: 1. Procedure Tolerance: tolerated well. Staff Section ? Anesthesia Provider: Nida Lezama MD, Performed the procedure ? Provider #1: Kaveh Johnson MD. Nida Lezama MD GENERAL ANE STHESIA ORDERABLES * (ABNORMAL) CBC W/O DIFFERENTIAL (11/09/2023 6:25 PM CDT) [facility] WBC 24.0(H) 4.0 - 10.7 x10E9/L 11/09/2023 6:42 PM CDT [facility] RBC Count 3.50(L) 4.30 - 5.80 x10E12/L 11/09/2023 6:42 PM CDT [facility] Hemoglobin 10.4(L) 13.3 - 17.5 g/dL 11/09/2023 6:42 PM [facility] Hematocrit 30.6(L) 38.7 - 51.1 % 11/09/2023 6:42 PM [facility] MCV 87.4 80.0 - 98.0 fL 11/09/2023 6:42 PM [facility] MCH 29.7 26.7 - 33.6 pg 11/09/2023 6:42 PM [facility] MCHC 34.0 31.7 - 36.3 g/dL 11/09/2023 6:42 PM [facility] RDW-CV 12.3 11.3 - 14.8 % 11/09/2023 6:42 PM [facility] Platelet Count 263 150 - 420 x10E9/L 11/09/2023 6:42 PM [facility] MPV 10.4 7.8 - 11.4 fL 11/09/2023 6:42 PM [facility] Blood BLOOD SPECIMEN / Unknown Venipuncture / Unknown 11/09/2023 6:25 PM CDT 11/09/2023 6:25 PM CDT Nida Lezama MD LAB - HEMAT OLOGY ORDERABLES [facility] [address] [place] [phone], [facility] [phone] * PREPARE FFP UNIT(S), 1 Units (11/09/2023 5:55 PM CDT) Only the most recent of2 resultswithin the time period is included. Unit Description Thawed Plasma 5D [facility] Unit ABO A [facility] Unit Rh POS [facility] Product Number [id number] [facility] B[facility] Unit Donor # [id number] [facility] Unit Status transfused [facility] Product Code [id number] [facility] Blood Type Barcode 6200 [facility] Expiration Date S BLOOD BANK LAB Blood Bank BLOOD SPECIMEN / Unknown 11/09/2023 3:21 AM CDT Nida Lezama MD LAB - BLOOD BANK ORDERABLES [facility] [address] [place] [address], [facility] [phone] * (ABNORMAL) BLOOD GAS+COOX+LYTES+METAB ARTERIAL POCT (11/09/2023 5:17 PM CDT) Only the most recent of3 resultswithin the time period is included. pH Arterial 7.41 7.35 - 7.45 pH 11/09/2023 5:17 PM [facility] pO2 Arterial 134(H) 80 - 100 mmHg 11/09/2023 5:17 PM [facility] pCO2 Arterial 39 35 - 45 mmHg 5:17 PM [facility] HCO3 Arterial 24.7 20.0 - 30.0 mmol/L 11/09/2023 5:17 PM [facility] BE Arterial 0.1 -2.0 - 2.0 mmol/L 11/09/2023 5:17 PM [facility] Oxyhemoglobin Arterial 96.9 % 11/09/2023 5:17 PM [facility] Dexoyhemoglobin (HHB) % 1.2 % 11/09/2023 5:17 PM [facility] Methemoglobin 1.0 0.0 - 2.0 % 11/09/2023 5:17 PM [facility] Carboxyhemoglobin 0.9 0.0 - 2.0 % 2023 5:17 PM [facility] Comment:Carboxyhemoglobin No rmal Concentration: Non-smokers: 0-2%; Smokers: 0- 9%; Toxic: >20% O2 Content Arterial 17.5 Interpret within clinical context ml/dL 11/09/2023 5:17 PM [facility] Hemoglobin by COOX 12.7 12.0 - 17.6 g/dL 11/09/2023 5:17 PM [facility] O2 Saturation Arterial 99 90 - 100 % 11/09/2023 5:17 PM CDT [facility] Sodium Whole Blood 138 135 - 145 mmol/L 11/09/2023 5:17 PM T [facility] Potassium Whole Blood 4.4 3.5 - 5.5 mmol/L 11/09/2023 5:17 PM T [facility] Chloride WB 104 78 - 107 mmol/L 11/09/2023 5:17 PM CDT [facility] Calcium Ionized 1.19 mmol/L 5:17 PM T [facility] Ionized Calcium pH Adjusted 1.19 1.19 - 1.34 mmol/L 11/09/2023 5:17 PM T [facility] Anion Gap (AG) Arterial 9 6 - 16 mmol/L 11/09/2023 5:17 PM T [facility] Glucose WB 95 70 - 115 mg/dL 11/09/2023 5:17 PM T [facility] Lactic Acid Whole Blood 2.3(H) <=2.0 mmol/L 11/09/2023 5:17 PM T [facility] Blood, arterial ARTERIAL BLOOD SPECIMEN / Unknown 11/09/2023 5:17 PM CDT 11/09/2023 5:18 PM CDT Guicho Gill MD LAB - POINT OF CARE ORDERABLES [facility] [address] [place] [address], [facility] [phone] * MRI BRAIN WWO CONT INTRAOP (11/09/2023 4:59 PM CDT) Anatomical Region Laterality Modality Head Magnetic Resonan ce Angiography 11/15/2023 3:18 PM CDT Impressions 11/15/2023 5:20 PM CDT IMPRESSION: Interval expected postoperative changes from resection of a large heterogeneous lesion centered along the medial aspect of the bilateral frontal lobes. There is a resection cavity along the medial aspect of the left frontal lobe, filled with the fluid/blood products.. 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 (Clinical team is aware of the findings, patient taken to the operating room for further resection of the tumor). Possible residual nonenhancing tumor along the posterior aspect of the resection cavity in the left frontal lobe and also along the left anterior corpus callosum cannot be excluded. Continued attention recommended on follow-up. Interval decrease in the mass effect on the corpus callosum, frontal horns of the lateral ventricles compared to prior study. No evidence of tonsillar herniation > Interpreting Provider: Viv Bowman MD on 11/15/2023 5:20 PM Narrative 11/15/2023 5:20 PM CDT PROCEDURE: ??MRI BRAIN WWO CONT INTRAOP DATE/TIME OF EXAM: ??11/09/2023 5:28 PM CLINICAL INFORMATION: None relevant/not provided if blank. Indication: G93.89: Brain mass Additional History: COMPARISON: MRI brain 11/03/2023 TECHNIQUE: MRI of the brain was performed utilizing multiple pulse sequences in multiple planes before and after intravenous gadolinium contrast administration according to Intra-Op protocol CONTRAST: ?? GADOBUTROL 1 MMOL/ML IV SSM SO:7.5 mL FINDINGS: Interval postsurgical changes from bifrontal craniotomy and resection of a heterogeneous mass the centered along the medial aspects of the bilateral frontal lobes. Blood products noted along the margins of the resection cavity predominantly along the medial aspect of the left frontal lobe. Pneumocephalus noted along the anterior aspect of the left frontal lobe. Left frontal lobe resection cavity is replaced with fluid/blood products (image 17, series 15). There is persistent residual T2/FLAIR hyperintensity along the posterior margin of the resection cavity including an closely abutting the left lateral aspect of the corpus callosum (image 16, 14, series 15), measuring approximately 1.7 cm in thickness and this could be secondary to residual nonenhancing tumor versus secondary to vasogenic edema. There is persistent residual tumor along the along the medial margin of the right frontal lobe with the areas of heterogeneity including heterogeneous enhancement, areas of T2 hypointensity/calcifications and hyperintensity. Residual tumor along the right medial frontal lobe measures approximately 7.6 x 2.9 cm (image 18, series 15), 4.4 cm in the craniocaudal dimension, approximately (. Image 25, series 18). Mild interval decrease in the mass effect on the frontal horns of the lateral ventricles and also anterior aspect of the corpus callosum. Decreased mass effect on the frontal horns of the lateral ventricles. Anterior cerebral arteries are noted along the medial margin of the resection cavity abutting the residual tumor in the right frontal lobe. The Limited evaluation of restricted diffusion secondary to the technique. No definite areas of acute infarction within the limits of the study. There is persistent mass effect on the optic chiasm and effacement of the suprasellar cisterns. There are low-lying cerebellar tonsils without evidence of tonsillar herniation. Ventricles are nondilated. No other enhancing lesions are identified. There is mild effacement of the sella secondary to mass effect from the brain mass. Otherwise, the posterior fossa, brainstem, and craniocervical junction appear normal. Other than mild paranasal sinus disease, the visualized portions of the, paranasal sinuses, and mastoids appear normal. Prominent bilateral optic nerve sheaths/papilledema could be sequela of increased intracranial pressure. Normal flow voids are demonstrated in the carotid arteries and basilar artery. Procedure Note Viv Bowman MD - 11/15/2023 PROCEDURE: MRI BRAIN WWO CONT INTRAOP DATE/TIME OF EXAM: 11/09/2023 5:28 PM CLINICAL INFORMATION: None relevant/not provided if blank. Indication: G93.89: Brain mass Additional History: COMPARISON: MRI brain 11/03/2023 TECHNIQUE: MRI of the brain was performed utilizing multiple pulse sequences in multiple planes before and after intravenous gadolinium contrast administration according to Intra-Op protocol CONTRAST: GADOBUTROL 1 MMOL/ML IV SSM SO:7.5 mL FINDINGS: Interval postsurgical changes from bifrontal craniotomy and resection ofa heterogeneous mass the centered along the medial aspects of thebilateral frontal lobes. Blood products noted along the margins of the resection cavity predominantly along the medial aspect of the left frontal lobe. Pneumocephalus noted along the anterior aspect of the left frontal lobe. Left frontal lobe resection cavity is replaced with fluid/blood products (image 17, series 15). There is persistent residual T2/FLAIRhyperintensity along the posterior margin of the resection cavity including an closely abutting the left lateral aspect of the corpus callosum (image 16, 14, series 15), measuring approximately 1.7 cm in thickness and this couldbe secondary to residual nonenhancing tumor versus secondary to vasogenic edema. There is persistent residual tumor along the along the medial margin ofthe right frontal lobe with the areas of heterogeneity includingheterogeneous enhancement, areas of T2 hypointensity/calcifications andhyperintensity. Residual tumor along the right medial frontal lobe measuresapproximately 7.6 x 2.9 cm (image 18, series 15), 4.4 cm in the craniocaudaldimension, approximately (. Image 25, series 18). Mild interval decrease in themass effect on the frontal horns of the lateral ventricles and also anterior aspect of the corpus callosum. Decreased mass effect on the frontalhorns of the lateral ventricles. Anterior cerebral arteries are noted alongthe medial margin of the resection cavity abutting the residual tumor in the right frontal lobe. The Limited evaluation of restricted diffusion secondary to the technique.No definite areas of acute infarction within the limits of the study. There is persistent mass effect on the optic chiasm and effacement ofthe suprasellar cisterns. There are low-lying cerebellar tonsils without evidence of tonsillar herniation. Ventricles are nondilated. No other enhancing lesions are identified.There is mild effacement of the sella secondary to mass effect from the brain mass. Otherwise, the posterior fossa, brainstem, and craniocervical junction appear normal. Other than mild paranasal sinus disease, the visualized portions of the, paranasal sinuses, and mastoids appear normal. Prominent bilateral optic nerve sheaths/papilledema could be sequela of increased intracranial pressure. Normal flow voids are demonstrated in the carotid arteries and basilar artery. IMPRESSION: Interval expected postoperative changes from resection of a large heterogeneous lesion centered along the medial aspect of the bilateral frontal lobes. There is a resection cavity along the medial aspect of the left frontal lobe, filled with the fluid/blood products.. There is persistentresidual tumor predominantly along the medial aspect of the right frontal lobe abutting the anterior cerebral arteries as described above measuring approximately 7.6 x 2.9 x 4.4 cm. (Clinical team is aware of thefindings, patient taken to the operating room for further resection of the tumor). Possible residual nonenhancing tumor along the posterior aspect of the resection cavity in the left frontal lobe and also along the leftanterior corpus callosum cannot be excluded. Continued attention recommended on follow-up. Interval decrease in the mass effect on the corpus callosum, frontalhorns of the lateral ventricles compared to prior study. No evidence oftonsillar herniation > Interpreting Provider: Viv Bowman MD on 11/15/2023 5:20 PM Guillermo Tapia MD MR ORDERABLES * Peripheral Nerve Block (11/09/2023 2:46 PM CDT) Narrative Jean-Pierre Ashley MD - 11/09/2023 2:46 PM CDT Jean-Pierre Ashley MD ? 11/09/2023 ??2:50 PM Peripheral ??Nerve Block ?? Procedure: Peripheral Nerve Block Patient Location: ??OR Preprocedure Section: ?? Indications: at surgeon's request, postop pain management and surgical anesthesia. Pre-anesthetic Checklist: Patient identified, IV Checked, Site examined and clear, Risks and benefits discussed, Surgical consent verified, Monitors and equipment, Time-out performed, Informed consent obtained, Pre-op evaluation done, Questions answered/anesthesia questions answered, Allergies reviewed and Removal hand/wrist jewelry Monitors: BP, Pulse Ox, EKG and ETCO2. Patient Condition: ??general anesthetic Patient Position: supine AN Patient sedated: General anesthesia. Procedure Section ?? Laterality: bilateral Block Performed: ??Other - Comments (Scalp blocks-supraorbital, supratrochlear, auriculotemporal) Prep: ??alcohol Strerile Field: gloves, mask and hat/cap Needle Type: ??short-bevel Needle Gauge: ??25 Catheter?No Injection Assessment: ?? Slow fractionated injection Block Agents or Additives used? Yes Block agents used: bupivacaine PF (MARCAINE PF) 0.25 % injection - Infiltration 16 mL - 11/09/2023 9:47:00 AM Procedure Tolerance: tolerated well and performed while patient under general anesthesia Assessment: completed Procedure Start Time: 11/09/2023 9:42 AM. Procedure End Time: 11/09/2023 9:47 AM. Procedure Total Time: 5 ??minutes. Staff Section ? Anesthesia Provider: Jean-Pierre Ashley MD, Performed the procedure Additional Comments: 2 ml each for supraorbital as well as supratrochlear blocks, 4 ml each for auriculotemporal blocks bilaterally. Nida Lezama MD [facility] ORDERABLES * BLOOD GAS ART+LYTES+METAB+COOX POC NOTIF (11/09/2023 1:51 PM CDT) Only the most recent of3 resultswithin the time period is included. Comment Notification Label Only - See Separate Report 11/09/2023 3:01 PM CDT [facility] Other MISCELLANEOUS SAMPLES / Unknown 11/09/2023 1:51 PM CDT 11/09/2023 1:56 PM CDT Nida Lezama MD LAB - BLOOD GASES ORDERABLES [address] [address], 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 This result has been reviewed and approved by Yrn Moore M.D. BACKGROUND INFORMATION: IDH1 and IDH2 Mutation Detection CHARACTERISTICS: This assay is an amplicon enrichment-based massively parallel sequencing assay targeting hotspot variants in genes critical for the diagnostic, prognostic, and therapeutic assessment of various solid tumors. The amplicon primer pool is designed to interrogate variants within a limited set of highly clinically relevant gene loci for the identification of actionable somatic variants in FFPE tissue from solid tumors. GENES TESTED: IDH1 ([id number]) exon 4 and IDH2 ([id number]) exon 4 are evaluated to detect hotspot variants. Targeted regions include [id number], chr15:[id number], and chr15:[id number]. METHODOLOGY: Genomic DNA was isolated from a microscopically-guided dissection of FFPE tumor tissue and then enriched for the targeted regions of the tested genes. The variant status of the targeted genes was determined by massively parallel sequencing. The hg19 (GRCh37) reference sequence was used as a reference for identifying genetic variants. Clinically significant single nucleotide variants and variants of uncertain significance within the preferred transcripts are reported. Other types of variants may be reported with a disclaimer, if detected. LIMITATIONS: This test will not detect variants in areas outside the targeted genomic regions or below the limit of detection. More information about the targeted regions of this test is included in the Additional Technical Information available in the Laboratory Test Directory. Copy number alterations (losses or amplifications), translocations, microsatellite instability, tumor mutational burden, deep intronic variants, and insertions/deletions will not be detected. Since this is a DNA-based assay, RNA variants will not be detected. This test evaluates for variants in tumor tissue only and cannot distinguish between somatic and germline variants. Therefore, if a hereditary/familial cancer is of clinical concern, additional clinical evaluation and genetic counseling should be considered prior to additional testing. In some cases, variants may not be identified due to technical limitations related to the presence of known pseudogenes, GC-rich regions, repetitive or homologous regions, low mappability regions, and/or variants located in regions overlapping amplicon primers. Tissue samples yielding between 1ng and 5ng total DNA input may yield suboptimal results and will be accepted for testing with a client-approved disclaimer. Benign or likely benign variants in the preferred transcript are not reported. Variant allele frequency (VAF) is not reported. Additional evaluation should be considered for complete genetic analysis, including detection of variants outside of the hotspot regions of IDH1 or IDH2, variants within other genes, gene methylation, translocations, or gene rearrangements, if clinically indicated. LIMIT OF DETECTION (LOD): The LOD for this assay is 10 percent VAF. For variants near the assay LOD, positive percent agreement (PPA) was found to be greater than 90 percent. ANALYTICAL ACCURACY/SENSITIVITY (PPA): The PPA estimate for the relevant variant class (with 95 percent credibility region) is listed below. Genes included on this test are a subset of a larger methods-based validation from which the PPA values are derived. Single nucleotide variants (SNVs): 98.4 percent (95.1-99.7 percent) CLINICAL DISCLAIMER: Results of this test must always be interpreted within the context of clinical findings and other relevant data and should not be used alone for a diagnosis of malignancy, determination of prognosis, or recommendation of therapy. This test is not intended to detect minimal residual disease. This test was developed and its performance characteristics determined by [facility] [facility]. It has not been cleared or approved by the U.S. Food and Drug Administration. This test was performed in a CLIA-certified laboratory and is intended for clinical purposes. Block ID [id number] B2 11/28/2023 4:05 PM CDT [facility]) Comment: Performed By: [facility] [address] [place] [address] Sanitizer: Romero Sullivan MD, PhD CLIA Number: [id number] Resection with Tumor TISSUE SPECIMEN / Unknown 11/09/2023 12:33 PM CDT 11/15/2023 1:30 PM CDT Guillermo Tapia MD LAB - PATHOLOGY/CYTO LOGY ORDERABLES [facility]) [address] [place] [address], [facility] * FISH 1P/19Q (11/09/2023 12:33 PM CDT) 1P Result Deleted 11/24/2023 4:35 PM CDT [facility] ([facility]) 1P/1Q Ratio 0.54 11/24/2023 4:35 PM CDT [facility] ([facility]) 1P Percent Deleted 86 % 2023 4:35 PM CDT [facility] ([facility]) Chromosome 1 Polysomy Not Present 11/24/2023 4:35 PM CDT [facility]) 19Q Result Deleted 11/24/2023 4:35 PM CDT [facility] ([facility]) Comment: Controls were run and performed as expected. This result has been reviewed and approved by Prudence Coombs M.D., Ph.D. [address] [facility] [place] [address] 19Q/19P Ratio 0.55 11/24/2023 4:35 PM CDT [facility] ([facility]) 19Q Percent Deleted 90 % 11/23 4:35 PM CDT [facility] ([facility]) Chromosome 19 Polysomy Not Present 11/24/2023 4:35 PM CDT [facility] ([facility]) Scoring Method Manual 11/24/2023 4:35 PM CDT [facility] ([facility]) 1P Total Cell Count 50 11/23 4:35 PM CDT [facility] ([facility]) 19Q Total Cell Count 50 11/06 4:35 PM CDT [facility] ([facility]) 1P19Q Fish Reference Number [id number] B2 11/24/2023 4:35 PM CDT [facility] ([facility]) 1P19Q Fish Source Brain L Frontal 11/24/2023 4:35 PM CDT [facility] ([facility]) Comment: INTERPRETIVE INFORMATION: 1p/19q, FISH Fluorescence in situ hybridization (FISH) analysis was performed on a section from a paraffin-embedded tissue block using differentially labeled fluorescent probes targeting 1p36/1q25 and 19p13/19q13 (KidBook). Cells were evaluated from regions of tumor identified on histopathologic review of a matching hematoxylin- and eosin-stained section. Controls performed appropriately. This assay evaluates the average ratios of 1p to 1q and 19q to 19p, as well as the percentage of cells with a signal pattern consistent with a deletion (individual cell 1p/1q and 19q/19p ratios of 0.5 or lower). Based on the validation of this assay, 1p deletion is defined as a 1p/1q ratio below 0.80 combined with a deleted pattern in 24 percent or more of the scored cells, and 19q deletion is defined as a 19q/19p ratio below 0.80 combined with a deleted pattern in 26 percent or more of the scored cells. Codeletion of 1p and 19q as the result of an unbalanced translocation is characteristic of oligodendrogliomas and a diagnostic feature according to the WHO Classification of Tumours of the Central Nervous System, Revised 4th Edition (2016). Codeletion is also predictive of a favorable response to combination chemotherapy. Isolated deletions of 1p or 19q are neither diagnostic nor predictive in a similar fashion. Polysomy, defined in this context as three or more signals for 1q and/or 19p in 30 percent or more of the tumor cells, suggests a less-favorable outcome in oligodendrogliomas. Based on the assay performance during test validation, the test is expected to detect 96 percent of 1p and 19q deletions in patients with oligodendrogliomas. Assay range and limit of detection were generated using normal and known positive cases respectively. Correlation with other laboratory data, especially histopathologic findings, is recommended for optimal risk stratification. References: 1. Marco RB et al. A t(1;19)(q10;p10) Mediates the Combined Deletions of 1p and 19q and Predicts a Better Prognosis of Patients with Oligodendroglioma. Cancer Res 66 (20): 0145-9246, 2006. 2. Arden M et al. Polysomy for chromosomes 1 and 19 predicts earlier recurrence in anaplastic oligodendrogliomas with concurrent 1p/19q loss. Clin Cancer Res 15(20):4451-0463, 2009. 3. Geraldine et al. Polysomy of chromosomes 1 and/or 19 is common and associated with less favorable clinical outcome in oligodendrogliomas: fluorescent in situ hybridization analysis of 84 consecutive cases. J Neuropathol Exp Neurol 71(7):618-624, 2011. 4. Kwadwo K et al. How molecular testing can help (and hurt) in the workup of gliomas. Am J Clin Pathol 139(3):275-288, 2013. 5. Tennille Riley et al. A weighted fluorescence in situ hybridization strengthens the favorable prognostic value of 1p/19q codeletion in pure and mixed oligodendroglial tumors. J Neuropathol Exp Neurol 72(5):432-41, 2013. 6. Luiz IRAHETA et al. Glioma Groups Based on 1p/19q, IDH, and TERT Promoter Mutations in Tumors. N Engl J Med 25;372(26):2499-508, 2015. 7. Sage DN, Karthikeyan H, Maurisio OD, Beatriz WK, Salvatore GONZALEZ, Eva D, Ayo A, Scarlett G, von Zoie A, Eds. WHO Classification of Tumours of the Central Nervous System, Revised 4th Edition. Lay, Holly: International Agency for Research on Cancer, 2016. This test was developed and its performance characteristics determined by [facility] [facility]. It has not been cleared or approved by the US Food and Drug Administration. This test was performed in a CLIA certified laboratory and is intended for clinical purposes. Performed By: [facility] [address] [place] [id number] Sanitizer: Romero Sullivan MD, PhD CLIA Number: [id number] Resection with Tumor TISSUE SPECIMEN / Unknown 11/09/2023 12:33 PM CDT 11/15/2023 1:29 PM CDT Guillermo Tapia MD LAB - PATHOLOGY/CYTO LOGY ORDERABLES [facility] ([facility]) [address] [place] [address], [facility] * PATHOLOGY TISSUE (11/09/2023 12:17 PM CDT) Case Report Surgical Pathology Report ? Case: [id number] ? Authorizing Provider: ??Guillermo Tapia MD ? Collected: ? 11/09/2023 12:17 PM ? Ordering Location: ? [facility] ?Received: ?11/09/2023 01:39 PM ? Pathologist: ? Vincenzo Proctor MD ? Specimens: ?? A) - Brain, Left Frontal Mass ? B) - Brain, Left Frontal Mass ? C) - Brain, Right frontal mass ? 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 - See comment. Brainn, left frontal mass, biopsy and resection (B): - Oligodendroglioma, IDH-mutant and [id number], favor 3D MODELER WHO grade 3. - See comment. Brainn, left frontal mass, biopsy and resection (C): - Oligodendroglioma, IDH-mutant and [id number], favor 3D MODELER WHO grade 3. - See comment. Comment: The tumor shows microvascular proliferation and frequent mitotic activity, with up to 5 in 10 high-power field. Although the mitotic criteria for 3D MODELER grade 3 is not entirely met, the presence of several areas of vascular proliferation and imaging finding concerning for high grade, therefore a 3D MODELER WHO grade 3 is favored in this case. 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 11:02 AM [facility] PATH[facility] LAB Microscopic Description and Comment The frozen section diagnosis is confirmed. Sections show an infiltrating glial neoplasm with predominantly oligodendroglial morphology. The tumor cells show moderate pleomorphism and focal hypercellular areas with increased mitotic and apoptotic activity, up to 5 mitosis per 10 HPF are seen. Microvascular proliferation is seen in several mitchell. The tumor cells show rare positivity for GFAP, strongly and diffusely positivity for Olig2, and retained ATRX immunohistochemical expression. Ki-67 shows a proliferating index of up to 15%. No significant p53 staining is seen. 4 11:02 AM [facility] PATH[facility] LAB Clinical History Brain MRI prior to resection showed a large heterogenous, partially cystic and calcified mass, with internal hemorrhage, in the left frontal lobe with extension into the right frontal lobe measuring approximately 8.2 x 8.6 x 6.4 cm. There is a small amount of restricted diffusion and scattered areas of enhancement. 11:02 AM [facility] PATH[facility] LAB Intraoperative Consultation A: Left frontal mass is a irregular fragment of soft tissue measuring 0.4 x 0.3 x 0.2 cm. Compressor Operator Adjuster tissue is submitted for frozen section examination as FSA1. Intraoperative diagnosis: FS A1 left frontal mass: - Infiltrating glioma with oligodendroglioma morphology by Dr. Hitesh MD 11:02 AM [facility] PATH[facility] LAB Gross Description The requisition and specimen(s) are identified with the patient's name Esa Walter and received in formalin from intraoperative consultation, specimen A , is previously sectioned and sampled consistent with intraoperative note. The frozen section remnant of FSA1 is respectively submitted in cassette A1 and the remaining is submitted in cassette A2. Received in formalin, specimen B are multiple irregular segments of castro-white glistening and friable soft tissue aggregating to 3.5 x 3.0 x 0.8 cm. The specimen is entirely submitted B1-B2. Received in formalin, specimen C are multiple irregular and friable segments of castro-white glistening soft tissue aggregating to 4.5 x 3.0 x 0.5 cm. Submitted in toto in C1-C2. [facility] 11:02 AM [facility] PATH[facility] LAB Pathologist Location at [facility] 11:02 AM [facility] PATHOLOGY LAB Disclaimer The performance characteristics of all immunohistochemical and indirect immunofluorescence stains (if any) cited in this report were determined by the Histopathology Laboratory of [facility]. Some of these tests were developed by our own laboratory and have not been cleared or approved by the US Food and Drug Administration. The FDA does not require this test to go through premarket FDA review. These tests are used for clinical purposes. They should not be regarded as investigational or for research. This laboratory is certified under the Clinical Laboratory Improvement Amendments (CLIA) as qualified to perform high complexity clinical laboratory testing. This case has been personally reviewed and interpreted by the attending (teaching) pathologist. 4 11:02 AM CDT [facility] PATHOLOGY LAB Synoptic Report CENTRAL NERVOUS SYSTEM CENTRAL NERVOUS SYSTEM - All Specimens Protocol posted: 01/27/2022 CLINICAL ?? History of Prior Therapy for this Neoplasm: ?Not known ?? History of Previous Tumor and / or Familial Syndrome: ?Not known ?? Neuroimaging Findings: ?Not available SPECIMEN ?? Procedure: ?Open biopsy ?? Procedure: ?Resection ?? Specimen Size, Gross Description: ?Greatest Dimension (Centimeters) cm ? Additional Dimension (Centimeters): ?4.5 cm TUMOR ?? Tumor Site: ?Brain ? : ?Cerebral lobes ? Precise Location: ?Frontal ?? Tumor Laterality: ?Left ?? Integrated Diagnosis: ? : ?Oligodendroglioma, IDH-mutant and 1p/19q-codeleted ?? Integrated Histologic Molecular Grade: ?3D MODELER WHO grade 3 SPECIAL STUDIES ?? Molecular Information: ?IDH1 mutant and 1p19q codeleted. 4 11:02 AM CDT [facility] PATHOLOGY LAB Embedded Images 4 11:02 AM CDT [facility] PATH[facility] LAB Resection with Tumor ENTIRE BRAIN / Unknown 11/09/2023 12:17 PM CDT 11/09/2023 1:39 PM CDT Comment:Pre-op diagnosis: Brain mass Resection with Tumor ENTIRE BRAIN / Unknown 11/09/2023 12:33 PM CDT 11/11/2023 7:35 AM CDT Comment:Pre-op diagnosis: Brain mass Resection with Tumor ENTIRE BRAIN / Unknown 11/09/2023 10:15 PM CDT 11/11/2023 9:00 AM CDT Comment:Pre-op diagnosis: Brain mass Guillermo Tapia MD LAB - PATHOLOGY/CYTO LOGY ORDERABLES [facility] PATH[facility] LAB [address] [phone] * LAB MISC TEST (NOT BLOOD) (11/09/2023 12:17 PM CDT) Only the most recent of2 resultswithin the time period is included. Test Name OLIG 2 by IHC 11/17/2023 8:25 AM CDT [facility] REF LAB NON INTERF Test Result See Scanned Report 11/17/2023 8:25 AM CDT [facility] REF [facility] NON INTERF Comment Ref Lab [facility] 11/17/2023 8:25 AM CDT [facility] REF [facility] NON INTERF Other SPECIMEN FROM BRAIN OBTAINED BY BIOPSY / Unknown Collection / Unknown 11/09/2023 12:17 PM CDT 11/15/2023 10:09 AM CDT Guillermo Tapia MD LAB - BODY FLUID ORD ERABLES [facility] REF [facility] NON INTERF [address] [place] [address], [facility] [phone] * ETT LINE PERFORMABLE (11/09/2023 10:13 AM CDT) Narrative Karla Nowak APRN-CRNA - 11/09/2023 10:13 AM CDT Karla Nowak APRN-CRNA ? 11/09/2023 10:14 AM Endotracheal Tube Placement: ? Patient Location: OR. Intubation Event Date/Time: ??11/09/2023 9:44 AM Procedure: intubation ([id number]) Procedure Section: ?? Sedation: under general anesthesia. Indications for Airway Management: ??anesthesia Procedure pretreatments used? ??No Induction: standard IV Patient Position: ??sniffing Mask Ventilation: easy. Blade Type: Conor Blade Size: 4 Laryngoscopy View: grade 1 (full cords) Intubation Adjuncts: stylet Tube: endotracheal tube Placement: oral Tube type: cuff - inflated Tube Size (MM): 8 Depth of Insertion (CM): 24 Measured From: teeth Cuff Inflated With: air Number of Attempts: 1. Placement Verified By: direct visualization, bilateral breath sounds and CO2 monitor Tube secured with: ??adhesive tape. Dentition unchanged? ??Yes Difficult Airway? ??No. Procedure Start Time: 11/09/2023 9:44 AM. Staff Section ? Anesthesia Provider: Key Anderson DO, Performed the procedure ? Provider #1: Karla Nowak APRN-CRNA. ? Provider #2: Nida Lezama MD. Nida Lezama MD [facility] ORDERABLES * ARTERIAL LINE PERFORMABLE (11/09/2023 10:11 AM CDT) Narrative Karla Nowak APRN-CRNA - 11/09/2023 10:11 AM CDT Karla Nowak APRN-CRNA ? 11/09/2023 10:12 AM Arterial Line Placement Procedure Note Patient Location: OR. Insertion Time: 11/09/2023 9:53 AM Procedure: Arterial Line ([id number]) Procedure Section ?? Indications: hypotension, blood sampling needed and continuous blood pressure monitoring. Consent: informed consent was obtained for the procedure. Skin Prep: Chloraprep. Orientation: Left. Site: radial. Site Identification: palpation. Sterile Technique: mask and cap. Gauge: 20. Seldinger Technique Used? ??No Number of Attempts: 1. Line Secured with: tape and Tegaderm. Procedure Tolerance: performed while patient under general anesthesia. Events: none. Patient Sedated? ??Yes Local Anesthetic Used? ??No Sedation Types: general anesthesia Staff Section ? Anesthesia Provider: Key Anderson DO, Performed the procedure ? Provider #1: Karla Nowak APRN-CRNA. ? Provider #2: Nida Lezama MD. Nida PAREKH ORDERABLES * BLOOD TYPE VERIFICATION (11/09/2023 3:32 AM CDT) ABO Rh O POS 11/09/2023 4:1 1 AM CDT [facility] B[facility] LAB Blood Bank BLOOD SPECIMEN / Unknown Lab Venipuncture / Unknown 11/09/2023 3:32 AM CDT 11/09/2023 3:37 AM CDT Guicho Gill MD LAB - BLOOD BANK ORD ERABLES Performing Organization Address [facility]/ZIP Co de Phone Number [facility] [address] [place] [address], [facility] [phone] * TYPE + SCREEN PANEL (11/09/2023 2:21 AM CDT) Antibody Screen NEG 4:12 AM CDT [facility] ABO Rh O POS 11/09/2023 4:12 AM CDT [facility] Blood Bank BLOOD SPECIMEN / Unknown Lab Venipuncture / Unknown 11/09/2023 2:21 AM CDT 11/09/2023 3:21 AM CDT Guicho Gill MD LAB - BLOOD BANK ORD ERABLES Performing Organization Address [facility] Co de Phone Number [facility] [address] [place] [address], [facility] [phone] * EKG 12-LEAD (11/05/2023 10:53 AM CDT) Ventricular Rate 71 BPM [facility] Atrial Rate 71 BPM [facility] M[facility] P-R Interval 128 ms [facility] QRS Duration ms 92 ms [facility] Q-T Interval ms 418 ms [facility] QTC Calculation (Bezet) 454 ms [facility] MUSE Calculated P Donaldson 44 degrees [facility] MUSE Calculated R Donaldson 67 degrees [facility] MUSE Calculated T Donaldson 42 degrees H MUSE Interpretation EKG NORMAL SINUS RHYTHM NORMAL ECG NO PREVIOUS ECGS AVAILABLE Confirmed by MELCHOR OLGUIN MD ([id number]) on 11/06/2023 10:07:25 AM [facility] M[facility] 11/05/2023 10:5 3 AM CDT 11/06/2023 10:07 AM CDT Alana Guerrero MD ECG ORDERABLES Performing Organization Address [facility] Co de Phone Number [facility] * MRI BRAIN WO CONTRAST (11/04/2023 12:34 PM CDT) Anatomical Region Laterality Modality Head Magnetic Resonan ce 11/04/2023 4:08 PM CDT Narrative 11/04/2023 4:23 PM CDT PROCEDURE: ??MRI BRAIN WO CONTRAST, DATE/TIME OF EXAM: ??11/04/2023 12:34 PM, LOCATION ??[facility] INDICATION: G93.89: Brain mass ADDITIONAL CLINICAL INFORMATION: Ordering Provider Reason For Exam: ??presurgical planning COMPARISON: MRI, CT angiogram 11/03/2023 TECHNIQUE: ?? MRI of the brain was performed without contrast, according to presurgical/stereotactic localization protocol. DTI images were obtained, diffusion-weighted images and also axial T1 MPRAGE images are obtained FINDINGS/IMPRESSION: Redemonstration of a heterogeneous large lesion centered along the medial aspect of the bilateral frontal lobes with areas of restricted diffusion, layering blood products concerning for high-grade primary brain neoplasm including GBM, oligodendroglioma. Please refer to MRI brain from 11/03/2023 for detailed evaluation of the lesion. The lesion also encases the anterior cerebral arteries, also more conspicuous on prior imaging. No new areas of restricted diffusion. There is significant mass effect on the anterior corpus callosum, frontal horns of the lateral ventricles also appears unchanged compared to prior study. There is also mild mass effect on the optic chiasm, effacement of the suprasellar cistern also appears unchanged. There is also mild mass effect on the superior aspect of the midbrain with slight advancement of the ambient cisterns > Interpreting Provider: Viv Bowman MD on 11/04/2023 4:23 PM Procedure Note Viv Bowman MD - 11/04/2023 PROCEDURE: MRI BRAIN WO CONTRAST, DATE/TIME OF EXAM: 11/04/2023 12:34PM, LOCATION [facility] INDICATION: G93.89: Brain mass ADDITIONAL CLINICAL INFORMATION: Ordering Provider Reason For Exam: presurgical planning COMPARISON: MRI, CT angiogram 11/03/2023 TECHNIQUE: MRI of the brain was performed without contrast, according to presurgical/stereotactic localization protocol. DTI images wereobtained, diffusion-weighted images and also axial T1 MPRAGE images are obtained FINDINGS/IMPRESSION: Redemonstration of a heterogeneous large lesion centered along themedial aspect of the bilateral frontal lobes with areas of restricteddiffusion, layering blood products concerning for high-grade primary brain neoplasm including GBM, oligodendroglioma. Please refer to MRI brain from11/03/2023 for detailed evaluation of the lesion. The lesion also encases theanterior cerebral arteries, also more conspicuous on prior imaging. No new areas of restricted diffusion. There is significant mass effecton the anterior corpus callosum, frontal horns of the lateral ventriclesalso appears unchanged compared to prior study. There is also mild masseffect on the optic chiasm, effacement of the suprasellar cistern also appears unchanged. There is also mild mass effect on the superior aspect of the midbrain with slight advancement of the ambient cisterns > Interpreting Provider: Viv Bowman MD on 11/04/2023 4:23 PM Alana Guerrero MD MR ORDERABLES * CT ANGIO BRAIN (11/03/2023 6:38 PM CDT) Anatomical Region Laterality Modality Head Computed Tomogra phy 11/03/2023 6:45 PM CDT Impressions 11/03/2023 7:55 PM CDT IMPRESSION: 1.No occlusion, hemodynamically significant stenosis, AVM, or aneurysm of the major intracranial arteries. 2.Please refer to concurrently reported head CT for description of bifrontal brain mass associated with mass effect seen on this examination. > Dictated by Bran Garcias MD (Solar Photovoltaic Installer) I, Stephanie Isbell MD, PhD have personally reviewed and interpreted this examination/study. > Interpreting Provider: Stephnaie Isbell MD, PhD on 11/03/2023 7:55 PM Narrative 11/03/2023 7:55 PM CDT PROCEDURE: ??CT ANGIO BRAIN, DATE/TIME OF EXAM: ??11/03/2023 6:38 PM, LOCATION: ??[facility] INDICATION: G93.89: Brain mass ADDITIONAL CLINICAL INFORMATION: Ordering Provider Reason For Exam: ??Further visualization of cerebral vasculature. EXAMINATION: CT angiogram images of the head acquired with intravenous contrast. Multiplanar reformations acquired. TECHNIQUE: CT angiography of the head was obtained after administration of intravenous contrast. Three dimensional postprocessing was performed by the technologist and sent to the workstation for review. CT dose reduction technique was used, including Automated Exposure Control. CONTRAST: ??IOPAMIDOL 76 % IV SOLN:100 mL ?? COMPARISON: Head CT 11/03/2023 at 6:27 PM. ??Head CT 11/03/2023 at 2:27 AM and brain MRI 11/03/2023 at 8:28 AM. FINDINGS: CTA HEAD: No occlusion, hemodynamically significant stenosis, arterial venous malformation (AVM), or aneurysm. Bilateral anterior cerebral artery (JESSICA) A3 segments and beyond with rightward displacement secondary to a large bifrontal mass described on concurrently reported head CT. This mass appears to be vascularized by branches arising from the bilateral JESSICA A3 segments. Hypoplastic A1 segment of the left JESSICA, which is a known variant. OTHER: Please refer to concurrently reported head CT for description of bifrontal brain mass associated with mass effect seen on this examination. Procedure Note Stephanie Isbell MD - 11/03/2023 PROCEDURE: CT ANGIO BRAIN, DATE/TIME OF EXAM: 11/03/2023 6:38 PM, LOCATION: [facility] INDICATION: G93.89: Brain mass ADDITIONAL CLINICAL INFORMATION: Ordering Provider Reason For Exam: Further visualization of cerebral vasculature. EXAMINATION: CT angiogram images of the head acquired with intravenous contrast. Multiplanar reformations acquired. TECHNIQUE: CT angiography of the head was obtained after administrationof intravenous contrast. Three dimensional postprocessing was performed bythe technologist and sent to the workstation for review. CT dose reduction technique was used, including Automated Exposure Control. CONTRAST: IOPAMIDOL 76 % IV SOLN:100 mL COMPARISON: Head CT 11/03/2023 at 6:[address] 11/03/2023 at 2:27 AMand brain MRI 11/03/2023 at 8:28 AM. FINDINGS: CTA HEAD: No occlusion, hemodynamically significant stenosis, arterial venous malformation (AVM), or aneurysm. Bilateral anterior cerebral artery (JESSICA) A3 segments and beyond with rightward displacement secondary to a large bifrontal mass described on concurrently reported head CT. This mass appears to be vascularized by branches arising from the bilateral JESSICA A3 segments. Hypoplastic A1 segment of the left JESSICA, which is a known variant. OTHER: Please refer to concurrently reported head CT for description of bifrontal brain mass associated with mass effect seen on thisexamination. IMPRESSION: 1.No occlusion, hemodynamically significant stenosis, AVM, or aneurysmof the major intracranial arteries. 2.Please refer to concurrently reported head CT for description of bifrontal brain mass associated with mass effect seen on thisexamination. > Dictated by Bran Garcias MD (Solar Photovoltaic Installer) Stephanie Trujillo MD, PhD have personally reviewed and interpreted this examination/study. > Interpreting Provider: Stephanie Isbell MD, PhD on 11/03/2023 7:55 PM Severino Law MD CT ORDERABLES * CT CHEST ABDOMEN PELVIS W CONT (11/03/2023 5:52 AM CDT) Anatomical Region Laterality Modality Chest, Abdomen, Pelvis Computed Tomography 11/03/2023 6:21 AM CDT Impressions 11/03/2023 12:04 PM CDT Impression: 1.No evidence of metastatic disease in the chest, abdomen, or pelvis. 2.No acute visceral, vascular, or osseus injury or process identified in the chest, abdomen, or pelvis. 3.Moderate nonobstructing stones noted in the kidneys bilaterally. > Dictated by Yrn Ragland MD, PhD (senior vice president and chief information officer). ITarun MD have personally reviewed and interpreted this examination/study. > Interpreting Provider: Tarun Paulino MD on 11/03/2023 12:04 PM Narrative 11/03/2023 12:04 PM CDT PROCEDURE: ??CT CHEST ABDOMEN PELVIS W CONT, DATE/TIME OF EXAM: ??11/03/2023 5:52 AM, LOCATION ??[facility] INDICATION: G93.89: Brain mass ADDITIONAL CLINICAL INFORMATION: Ordering Provider Reason For Exam: ??new brain mass r/o mets Technologist Note: Additional: COMPARISON: None. TECHNIQUE: CT of the chest, abdomen, and pelvis was performed after the uneventful administration of 100 mL of Isovue 370 intravenous contrast according to standard protocol. Findings: Chest: Lower Neck and Axillae: The thyroid gland is normal. No supraclavicular or axillary lymphadenopathy is seen. Airway, Lungs, and Pleura: The airway is patent. No pulmonary parenchymal or airway process is present. ??No pleural fluid or pneumothorax is present. No suspicious pulmonary nodule or mass are identified. Heart and Pericardium: The cardiac chambers are normal in size. No pericardial fluid or thickening is present. Mediastinum and Maritza: No enlarged lymph nodes are present. The esophagus is normal. Thoracic Vasculature: No vascular abnormality is present. Abdomen/Pelvis: Liver: Normal. No focal hepatic lesions. Gallbladder and Bile Ducts: Normal. No cholelithiasis, pericholecystic fluid, gallbladder wall thickening, or intrahepatic or extrahepatic biliary ductal dilatation. Spleen: Normal. Pancreas: Normal. No focal pancreatic lesion or pancreatic ductal dilatation. Adrenals: Kathrine. No nodularity or evidence of adrenal hematoma. Kidneys/Renal Collecting System and Ureters: Right collecting system peripheral calyx exhibits multiple sub-2 mm nonobstructing stones (series 5 image 58). Left inferior collecting system peripheral calyx exhibits multiple sub-2 mm nonobstructing stones (series 7 image 57). Nephrograms are symmetric. No evidence of hydronephrosis, hydroureter, or masses. Bladder: Partially distended, limiting evaluation. Reproductive Organs: The prostate is enlarged, measuring 5.2 cm transversely, with homogenous density and no calcifications. Gastrointestinal: The stomach and visualized loops of small bowel are unremarkable. Colonic diverticulosis without evidence of diverticulitis is seen. The appendix is not seen; however, no inflammatory changes are seen in the right lower quadrant. Mesentery/Peritoneum/Retroperitoneum: No free intraperitoneal air. No free fluid in the abdomen or pelvis. There is no ascites, or lymphadenopathy. Abdominal Vasculature: No vascular abnormality is present. Bones: No acute fracture or suspicious osseous lesions. Soft tissues: Normal. Procedure Note Tarun Paulino MD - 11/03/2023 PROCEDURE: CT CHEST ABDOMEN PELVIS W CONT, DATE/TIME OF EXAM:11/03/2023 5:52 AM, LOCATION [facility] INDICATION: G93.89: Brain mass ADDITIONAL CLINICAL INFORMATION: Ordering Provider Reason For Exam: new brain mass r/o mets Technologist Note: Additional: COMPARISON: None. TECHNIQUE: CT of the chest, abdomen, and pelvis was performed after the uneventful administration of 100 mL of Isovue 370 intravenous contrast according to standard protocol. Findings: Chest: Lower Neck and Axillae: The thyroid gland is normal. No supraclavicular or axillarylymphadenopathy is seen. Airway, Lungs, and Pleura: The airway is patent. No pulmonary parenchymal or airway process is present. No pleural fluid or pneumothorax is present. No suspicious pulmonary nodule or mass are identified. Heart and Pericardium: The cardiac chambers are normal in size. No pericardial fluid orthickening is present. Mediastinum and Maritza: No enlarged lymph nodes are present. The esophagus is normal. Thoracic Vasculature: No vascular abnormality is present. Abdomen/Pelvis: Liver: Normal. No focal hepatic lesions. Gallbladder and Bile Ducts: Normal. No cholelithiasis, pericholecystic fluid, gallbladder wall thickening, or intrahepatic or extrahepatic biliary ductal dilatation. Spleen: Normal. Pancreas: Normal. No focal pancreatic lesion or pancreatic ductal dilatation. Adrenals: Kathrine. No nodularity or evidence of adrenal hematoma. Kidneys/Renal Collecting System and Ureters: Right collecting system peripheral calyx exhibits multiple sub-2 mm nonobstructing stones (series 5 image 58). Left inferior collecting system peripheral calyx exhibits multiple sub-2mm nonobstructing stones (series 7 image 57). Nephrograms are symmetric. No evidence of hydronephrosis, hydroureter,or masses. Bladder: Partially distended, limiting evaluation. Reproductive Organs: The prostate is enlarged, measuring 5.2 cm transversely, with homogenous density and no calcifications. Gastrointestinal: The stomach and visualized loops of small bowel are unremarkable.Colonic diverticulosis without evidence of diverticulitis is seen. The appendixis not seen; however, no inflammatory changes are seen in the right lower quadrant. Mesentery/Peritoneum/Retroperitoneum: No free intraperitoneal air. No free fluid in the abdomen or pelvis.There is no ascites, or lymphadenopathy. Abdominal Vasculature: No vascular abnormality is present. Bones: No acute fracture or suspicious osseous lesions. Soft tissues: Normal. Impression: 1.No evidence of metastatic disease in the chest, abdomen, or pelvis. 2.No acute visceral, vascular, or osseus injury or process identified in the chest, abdomen, or pelvis. 3.Moderate nonobstructing stones noted in the kidneys bilaterally. > Dictated by Yrn Ragland MD, PhD (senior vice president and chief information officer). I, Tarun Paulino MD have personally reviewed and interpreted this examination/study. > Interpreting Provider: Tarun Paulino MD on 412:04 PM Fe Valenzuela MD CT ORDERABLES * (ABNORMAL) TEG 6 GLOBAL HEMOSTASIS W/ LYSIS (11/03/2023 3:15 AM CDT) Citrated Kaolin R (Reaction Time) 2.3(L) 4.6 - 9.1 min 11/03/2023 4:23 AM CDT [facility] Comment:CK R result below no rmal range. Consistent with hypercoagulable clotting factors. Citrated Kaolin LY30 (Lysis) 0.0 0.0 - 2.6 % 11/03/2023 4:23 AM CDT [facility] Citrated Functional Fibrinogen MA (Max Amplitude) 16.7 15.0 - 32.0 mm 11/03/2023 4:23 AM CDT [facility] Citrated RapidTEG MA (Max Amplitude) 56.3 52.0 - 70.0 mm 11/03/2023 4:23 AM CDT [facility] Blood BLOOD SPECIMEN / Unknown Venipuncture / Unknown 11/03/2023 3:15 AM CDT 11/03/2023 3:23 AM CDT Fe Valenzuela MD LAB - HEMATOLOGY ORD ERABLES [facility] [address] [place] [phone], [facility] [phone] * (ABNORMAL) TEG 6S PLATELET MAPPING (11/03/2023 3:15 AM CDT) TEGPLM (Max Amplitude) Koalin 55.8 53.0 - 68.0 mm 11/03/2023 4:23 AM CDT [facility] TEGPLM (Max Amplitude) ACTF 2.7 2.0 - 19.0 mm 11/03/2023 4:23 AM CDT [facility] TEGPLM (Max Amplitude) ADP 40.3(L) 45.0 - 69.0 mm 11/03/2023 4:23 AM [facility] Comment:ADP MA below normal range. Inhibition present. TEGPLM (Max Amplitude) AA 19.4(L) 51.0 - 71.0 mm 11/03/2023 4:23 AM [facility] Comment:AA MA below normal r nito. Inhibition present. TEGPLM %Inhibition ADP 29.2(H) 0.0 - 17.0 % 11/03/2023 4:23 AM [facility] TEGPLM %Inhibition AA 68.5(H) 0.0 - 11.0 % 11/03/2023 4:23 AM [facility] TEGPLM %Aggregation ADP 70.8(L) 83.0 - 100.0 % 11/03/2023 4:23 AM [facility] TEGPLM % Aggregation AA 31.5(L) 89.0 - 100.0 % 11/03/2023 4:23 AM [facility] Blood BLOOD SPECIMEN / Unknown Venipuncture / Unknown 11/03/2023 3:15 AM CDT 11/03/2023 3:23 AM CDT Fe Valenzuela MD LAB - HEMATOLOGY ORD ERABLES [facility] [address] [place] [phone], [facility] [phone] * (ABNORMAL) COMPREHENSIVE METABOLIC PANEL (11/02/2023 6:07 PM CDT) BUN 19 7 - 26 mg/dL 11/02/2023 6:44 PM [facility] Creatinine 0.88 0.71 - 1.16 mg/dL 11/02/2023 6:44 PM [facility] Sodium 144 136 - 145 mmol/L 11/02/2023 6:44 PM [facility] Potassium 4.0 3.5 - 4.5 mmol/L 11/02/2023 6:44 PM [facility] Chloride 106 98 - 107 mmol/L 11/02/2023 6:44 PM [facility] CO2 28 22 - 29 mmol/L 11/02/2023 6:44 PM [facility] Glucose 114 70 - 115 mg/dL 11/02/2023 6:44 PM [facility] Calcium 10.1 8.4 - 10.2 mg/dL 11/02/2023 6:44 PM [facility] Protein Total 7.8 6.0 - 8.3 g/dL 11/02/2023 6:44 PM [facility] Albumin 4.5 3.4 - 5.0 g/dL 11/02/2023 6:44 PM [facility] Bilirubin Total 0.4 0.2 - 1.2 mg/dL 11/02/2023 6:44 PM [facility] Alkaline Phosphatase 64 40 - 150 U/L 11/02/2023 6:44 PM [facility] ALT 15 5 - 55 U/L 11/02/2023 6:44 PM [facility] AST 15 5 - 34 U/L 11/02/2023 6:44 PM [facility] Anion Gap 10 6 - 16 11/02/2023 6:44 PM [facility] BUN/Creatinine Ratio 22 7 - 23 11/02/2023 6:44 PM [facility] Osmolality Calculated 301(H) 275 - 295 mOsm/kg 11/02/2023 6:44 PM [facility] Albumin/Globulin Ratio 1.4 1.1 - 2.3 11/02/2023 6:44 PM [facility] eGFR by CKD-EPI >90 >=90 mL/min/1.7 3 m2 11/02/2023 6:44 PM [facility] Blood BLOOD SPECIMEN / Unknown Venipuncture / Unknown 11/02/2023 6:07 PM CDT 11/02/2023 6:17 PM CDT Sona Jacob PA-C LAB - CHEMISTRY OR DERABLES [facility] [address] [place] [address], [facility] [phone] * LIPASE BLOOD (11/02/2023 6:07 PM CDT) Lipase 20 8 - 78 U/L 11/02/2023 6:44 PM CDT [facility] Blood BLOOD SPECIMEN / Unknown Venipuncture / Unknown 11/02/2023 6:07 PM CDT 11/02/2023 6:17 PM CDT Narrative [facility] - 11/02/2023 6:44 PM CDT Lipase results from the [employer] Alinity analyzer may not be comparable with other methodologies. Sona Jacob PA-C LAB - CHEMISTRY OR DERABLES [facility] [address] [place] [address], [facility] [phone]
--- OUTSIDE RECORDS SUMMARY | 2024-06-08 11:22 | XMS_ITS | Clinical Summary ---
Author Organization [facility] Address [address] [place] [phone] Phone Care Team Providers Care Mother Baby Rn Name Role Phone Kei Sanchez Primary Care Provider [phone] Allergies No known active allergies Medications naproxen (NAPROSYN) 500 MG TabletIndicatio ns:Tension headache Take 1 Tablet by mouth 2 times daily (with meals). 60 Tablet 09/26/2023 Active escitalopram (LEXAPRO) 10 MG TabletIndicatio ns:Anxiety Take 1 Tablet by mouth daily. 90 Tablet 09/26/2023 Active ondansetron (ZOFRAN) 4 MG Tablet Take 1-2 Tablets by mouth every 8 hours as needed for Nausea - 1st line. 10 Tablet 09/29/2023 Active Active Problems No known active problems Immunizations Immunization Administration Dates Next Due Covid-19, Mrna, Lnp-s, Pf, 1 00 Mcg Or 50 Mcg Dose (MODERNA) 09/14/2020,08/17/2020 Hepatitis A Vaccine 10/22/2008,03/26/2008 Hepatitis B Vaccine, Pediatric/adolescent 1998,12/26/1997,11/21/1997 Family History Medical History Relation Name Comments Stroke Father Stroke Maternal Grandfather Ovarian Cancer Mother Uterine Cancer Mother Stroke Paternal Grandmother Relation Name Status Comments Father Maternal Grandfather Mother Alive Paternal Grandmother Social History Tobacco Use Types Packs/Day Years Used Date Smoking Tobacco: Never Smokeless Tobacco: Never Tobacco Cessation:Counseling Given: Not Answered Alcohol Use Standard Drinks/Week Comments Yes 12 (1 standard drink = 0.6 oz pu re alcohol) [facility] Utilities Answer Date Recorded In the past 12 months has th e electric, gas, oil, or water company threatened to shut off services in your home? No 09/25/2023 Social Connection and Isolation Panel [NHANES] A nswer Date Recorded In a typical week, how many times do you talk on the phone with family, friends, or neighbors? Never 09/25/2023 How often do you get together with friends or re latives? Once a week 09/25/2023 How often do you attend denominational or congregational serv ices? Never 09/25/2023 Do you belong to any clubs o r organizations such as denominational groups, unions, fraternal or athletic groups, or school groups? No 09/25/2023 How often do you attend meet ings of the clubs or organizations you belong to? Never 09/25/2023 Are you , , di vorced, , never , or living with a partner? 09/25/2023 AUDIT-C Answer Date Recorded Q1: How often do you have a drink containing alc ohol? 2-4 times a month 09/25/2023 Q2: How many drinks containi ng alcohol do you have on a typical day when you are drinking? 3 or 4 09/25/2023 Q3: How often do you have si x or more drinks on one occasion? Less than monthly 09/25/2023 Overall Financial Resource Strain (CARDIA) Answe r Date Recorded How hard is it for you to pa y for the very basics like food, housing, medical care, and heating? Somewhat hard 09/25/2023 [facility] of Occupat ional Health - Occupational Stress Questionnaire Answer Date Recorded Do you feel stress - tense, restless, nervous, or anxious, or unable to sleep at night because your mind is troubled all the time - these days? To some extent 09/25/2023 Exercise Vital Sign Answer Date Recorde d On average, how many days pe r week do you engage in moderate to strenuous exercise (like a brisk walk)? 0 days 09/25/2023 On average, how many minutes do you engage in exercise at this level? 0 min 09/25/2023 Hunger Vital Sign Answer Date Recorded Within the past 12 months, y ou worried that your food would run out before you got the money to buy more. Often true Within the past 12 months, t he food you bought just didn't last and you didn't have money to get more. Sometimes true PRAPARE - Transportation Answer Date Re corded In the past 12 months, has l ack of transportation kept you from medical appointments or from getting medications? No 09/06 In the past 12 months, has l ack of transportation kept you from meetings, work, or from getting things needed for daily living? No 09/25/2023 Housing Stability Vital Sign Answer Andrey e Recorded In the last 12 months, was t here a time when you were not able to pay the mortgage or rent on time? No 09/25/2023 In the last 12 months, how many places have you lived? 1 09/25/2023 In the last 12 months, was t here a time when you did not have a steady place to sleep or slept in a [place] (including now)? No 09/25/2023 Housing Stability Vital Sign Answer Andrey e Recorded In the last 12 months, was t here a time when you were not able to pay the mortgage or rent on time? No 09/25/2023 Number of Times Moved in the Last Year Not on fi le 09/25/2023 Homeless in the Last Year Not on file 2023 Education Answer Date Recorded What is the highest level of school you have completed or the highest degree you have received? GED or equivalent Sexually Active Control Partners Comments Yes Female Sex and Gender Information Value Date Recorded Sex Assigned at Not on file Legal Sex Male 1:12 PM CDT Gender Identity Not on file Sexual Orientation Not on file Last Filed Vital Signs Vital Sign Reading Time Taken Comments Blood Pressure 112/82 09/29/2023 10:15 AM CDT Pulse 57 09/29/2023 10:15 AM CDT Temperature 36 ??C (96.8 ??F) 09/29/2023 6:30 AM CDT Respiratory Rate 16 09/29/2023 6:30 AM CDT Oxygen Saturation 96% 09/29/2023 10:15 AM CDT Inhaled Oxygen Concentration - - Weight 90.7 kg (200 lb) 09/29/2023 6:30 AM CDT Height 182.9 cm (6') 09/29/2023 6:30 AM CDT Body Mass Index 27.12 09/29/2023 6:30 AM CDT Plan of Treatment Health Maintenance Due Date Last Done Comments Hepatitis C Virus (HCV) Screening 1985 TdaP Immunization 1985 Influenza Immunization (#1) 2024 SARS-COV-2 Immunization ( season) 2024 09/14/2020, 08/17/2020 Respiratory Syncytial Virus (RSV) Immunization (Adult) (1 - 1-dose 75+ series) 2061 Hepatitis B Immunization Completed 999, 12/26/1997, 11/21/1997 Meningococcal Immunization (ACWY) Aged Out No longer eligible b ased on patient's age to complete this topic Pneumococcal Immunization Combined Aged Out No longer eligible b ased on patient's age to complete this topic Rotavirus Immunization Aged Out No lo nger eligible based on patient's age to complete this topic Procedures Procedure Name Priority Date/Time Associated Diagnosis Comments HEMATOLOGY ONCOLOGY CONSULT 04/18/2024 12:00 AM BINDING END STITCHER from Last 3 Months Results * HEMATOLOGY ONCOLOGY CONSULT (04/18/2024 12:00 AM BINDING END STITCHER) 04/18/2024 us Provider Scan GENERIC SCAN ORDERS CONSULT Olive l Result SCAN from Last 3 Months Insurance Care Teams Mother Baby Rn Relationship Specialty Start Date End Date Kei Sanchez, PAC [address] [place] [phone] PCP - General Physician Machining Engineer 09/26/23
--- OUTSIDE RECORDS SUMMARY | 2024-06-08 11:22 | XMS_ITS | Clinical Summary ---
Author Organization [facility] Address [address] [place] [address] Care Team Providers Care Professor Of Biblical Studies Name Role Phone Unavailable Primary Care Provider Unavailabl e Source Comments [facility],non-owned Affiliates and Associated Physician Practices is amultiple site organization consisting of ambulatory clinics and hospital sitesin [place], [place], [place] and [place]. This disclosure is being madepursuant to the Care Everywhere program and may not contain all information available regarding this patient. Last updated 18.[facility] Allergies No known active allergies Medications * Be aware that medications may not be up to date on this document. Alwaysverify current medications with the patient. Medication Sig Dispensed Refills Start Date End Date Status dexAMETHasone (Decadron) 4 MG tablet Take 1 (one) tablet by mouth 3 times daily for 1 day, THEN 1 (one) tablet 2 times daily for 2 days, THEN 0.5 (one-half) tablet 3 times daily for 2 days, THEN 0.5 (one-half) tablet 2 times daily for 30 days. 40 tablet 11/16/2023 Active prochlorperazine (Compazine) 10 MG tablet Take 1 (one) tablet by mouth every 6 hours as needed for Nausea/Vomiting 120 tablet 11 12/26/2023 Active Additional Information Patient not taking.Reported on 12/27/2023 sulfamethoxazole- trimethoprim (Bactrim; Septra) 400-80 MG tablet Take 1 (one) tablet by mouth every Tuesday, Tuesday & Tuesday 36 tablet 3 12/26/2023 Active Additional Information Patient not taking.Reported on 12/27/2023 temozolomide (Temodar) 140 MG capsuleIndication s:Brain tumor (HCC) TAKE ONE CAPSULE BY MOUTH ONCE DAILY WITH 20MG CAPSULE, ON AN EMPTY STOMACH ONE HOUR BEFORE RADIATION FOR 42 DAYS 42 capsule 01/06/2024 01/05/2025 Active temozolomide (Temodar) 20 MG capsuleIndication s:Brain tumor (HCC) TAKE ONE CAPSULE BY MOUTH ONCE DAILY WITH 140MG CAPSULE, ON AN EMPTY STOMACH, ONE HOUR BEFORE RADIATION FOR 42 DAYS 42 capsule 01/06/2024 01/05/2025 Active Active Problems Problem Noted Date Diagnosed Date 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 Agitation 11/16/2023 Nausea and vomiting 11/16/2023 Brain mass 11/03/2023 Headache 11/03/2023 Encounters Date Type Department Care Team Description 05/21/2024 Telephone [facility] [id number] [place] [address] Janice Camacho RN General from Last 3 Months Family History Medical History Relation Name Comments CVA Father CVA Maternal Grandfather Cancer - Ovarian Mother Cancer - Uterine Mother CVA Paternal Grandmother CVA Paternal Uncle Relation Name Status Comments Father Maternal Grandfather Mother Paternal Grandmother Paternal Uncle Other Social History Tobacco Use Types Packs/Day Years [...] Recorded Patient Health Questionnaire-2 Score 0 11/30/2023 [facility] [place] of Occupat ional Health - Occupational Stress [...] money to buy more. Never true 11/03/19 24 Within the past 12 months, t he [...] place to sleep or slept in a half-way (including now)? No 11/03/2023 Sex and Gender [...] Mass Index 28.84 12/26/2023 4:18 PM CDT Plan of Treatment Health Maintenance Due Date Last Done Comments HIV SCREENING 2001 HEPATITIS C SCREENING 04/19/2004 DTAP/TDAP/TD VACCINES (1 - Tdap) 2005 HEPATITIS B VACCINE (1 of 3 - 19+ 3-dose series) 2005 COVID-19 VACCINE (3 - 2023-2 5 season) 2024 09/14/2020, 08/17/2020 INFLUENZA VACCINE (#1) 2024 DEPRESSION SCREENING 05/09/2024 11/30/2023 ZOSTER VACCINE (1 of 2) 2036 HIB VACCINE Aged Out No longer eligi ble based on patient's age to complete this topic HPV VACCINE Aged Out No longer eligi ble based on patient's age to complete this topic MENINGOCOCCAL (Group B) VACCINE Aged Out No longer eligible b ased on patient's age to complete this topic MENINGOCOCCAL VACCINE Aged Out No janeth raj eligible based on patient's age to complete this topic PNEUMOCOCCAL VACCINE Aged Out No long er eligible based on patient's age to complete this topic Medical Devices Implanted Type Area Car Rental Service Attendant Device Identifier Shelf Expiration Date Model / Serial / Lot Graft Tissue Drgn + Bvn Clgn Mtrx 5x4in Implanted:Qty: 1 on 11/09/2023 by Guillermo Tapia MD at [facility] Brain Integra Neurosciences [id number] / / Cover Bur Hl .4mm 7mm Unv Neuro Iii Ti Implanted:Qty: 4 on 11/09/2023 by Miky Barger MD at [facility] Cranial [place]onel Craniomaxillofacial [id number] / / Screw 1.5mm 4mm Slf Drl Ax Stab Unv Implanted:Qty: 15 on 11/09/2023 by Miky Barger MD at [facility] Cranial [place] Craniomaxillofacial [id number] / / Cerebroflo Evd Catheter Implanted:Qty: 1 on 11/09/2023 by Miky Barger MD at [facility] Brain 01/13/2025 [id number] Advance Directives Documents on File Type Date Recorded Patient Night Warehouse Manager Expl anation Adv Directive/Living Will/POA 11/11/2023 9:45 AM Adv Directive/Living Will/POA 11/08/2023 2:18 PM * Full Code (Latest Code Status on File) Date Activated Date Inactivated Comments 11/03/2023 5:03 PM 11/15/2023 5:11 PM
--- OUTSIDE RECORDS SUMMARY | 2024-06-08 11:22 | XMS_ITS | Referral Summary ---
Author Organization [facility] Address [address] [place] [address] Care Team Providers Care Counter Molder Name Role Phone Unavailable Primary Care Provider Unavailabl e Source Comments [facility],non-owned Affiliates and Associated Physician Practices is amultiple site organization consisting of ambulatory clinics and hospital sitesin [place], [place], [place] and [place]. This disclosure is being madepursuant to the Care Everywhere program and may not contain all information available regarding this patient. Last updated 18.[facility] Encounters Date Type Department Care Team Description 05/21/2024 Telephone [facility] [address] [place] [address] Janice Camacho RN General from Last 3 Months Allergies No known active allergies Medications * [...] Recorded Patient Health Questionnaire-2 Score 0 11/30/2023 [facility] [place] of Occupat ional Health - Occupational Stress [...] place to sleep or slept in a correction (including now)? No 11/03/2023 Sex and Gender [...] Mass Index 28.84 12/26/2023 4:18 PM CDT Functional Status Functional Status Response Date of Assess ment Is person deaf or have serious hearing difficult y? No 11/03/2023 Is person blind or have serious difficulty seein g? No 11/03/2023 Does person have serious dif ficulty walking/climbing stairs? No 11/03/2023 Does person have difficulty dressing/bathing? No 11/03/2023 Does person have difficulty doing errands alone? No 11/03/2023 Cognitive Status Response Date of Assessm ent Does person have difficulty concentrating/remembering/making decisions? No 11/03/2023 Plan of Treatment Not on file Medical Devices Implanted Type Area Lab Nurse Device Identifier Shelf Expiration Date Model / Serial / Lot Graft Tissue Drgn + Bvn Clgn Mtrx 5x4in Implanted:Qty: 1 on 11/09/2023 by Guillermo Tapia MD at [facility] Brain Integra Neurosciences [id number] / / Cover Bur Hl .4mm 7mm Unv Neuro Iii Ti Implanted:Qty: 4 on 11/09/2023 by Miky Barger MD at [facility] Cranial Leonel Craniomaxillofacial [id number] / / Screw 1.5mm 4mm Slf Drl Ax Stab Unv Implanted:Qty: 15 on 11/09/2023 by Miky Barger MD at [facility] Cranial [place] Craniomaxillofacial [id number] / / Cerebroflo Evd Catheter Implanted:Qty: 1 on 11/09/2023 by Miky Barger MD at [facility] Brain 01/13/2025 [id number] / [id number] Advance Directives Documents on File Type Date Recorded Patient Power And Recovery Shift Engineer Expl anation Adv Directive/Living Will/POA 11/11/2023 9:45 AM Adv Directive/Living Will/POA 11/08/2023 2:18 PM * Full Code (Latest Code Status on File) Date Activated Date Inactivated Comments 11/03/2023 5:03 PM 11/15/2023 5:11 PM
[2024-06-08 11:30] LABS: Basophils Percent Auto 0.4 % (0.2-1.2); Eosinophils Absolute Auto 0.1 K/mm3 (0-0.3); Eosinophils Percent Auto 1.2 % (0-4.4); Hemoglobin 15.5 g/dL (14.0-18.0); Immature Granulocyte Absolute 0.04 K/mm3 (0.00-0.031); Immature Granulocyte Percent A 0.8 % (0-0.5); Lymphocytes Absolute Auto 1.25 K/mm3 (0.9-3.2); Lymphocytes Percent Auto 24.7 % (18.3-44.2); Mean Corpuscular HGB Conc 33.7 g/dl (32-36); Mean Corpuscular Hemoglobin 28.5 pg (26-34); Mean Corpuscular Volume 84.6 fl (80-100); Mean Platelet Volume 8.8 fl (7.4-10.4); Monocytes Absolute Auto 0.5 K/mm3 (0.1-0.6); Monocytes Percent Auto 9.7 % (2.6-8.5); Neutrophils Absolute Auto 3.2 K/mm3 (1.3-6.7); Neutrophils Percent Auto 63.2 % (45.5-73.1); Platelet Count Result 134 k/mm3 (150-375); Red Blood Count 5.44 M/mm3 (4.6-6.20); Red Cell Distribution Width 12.9 % (11.5-14.5); White Blood Count 5.1 K/mm3 (4.5-10.0)
[2024-06-08 11:33] LABS: Blood Urea Nitrogen 18 mg/dL (8-26); Carbon Dioxide 27 mmol/L (22-30); Chloride 105 mmol/L (98-109); Estimated Glomerular Filt Rate > 60; Glucose 80 mg/dL (70-105); Potassium 4.1 mmol/L (3.5-4.9); Sodium 143 mmol/L (138-146)
[2024-06-08 12:37] LABS: Alanine Aminotransferase 24 U/L (6-50); Albumin Level 4.3 g/dL (3.5-5.1); Alkaline Phosphatase 74 U/L (38-126); Anion Gap 7 mmol/L (4-12); Aspartate Amino Transferase 26 U/L (17-59); Bilirubin,Total 0.7 mg/dL (0.2-1.3); Blood Urea Nitrogen 18 mg/dL (9-20); Calcium 9.3 mg/dL (8.4-10.2); Carbon Dioxide 27 mmol/L (22-30); Chloride 106 mmol/L (98-107); Estimated Glomerular Filt Rate > 60; Glucose 81 mg/dL (65-110); Potassium 4.3 mmol/L (3.4-5.0); Sodium 140 mmol/L (137-145)
== END 2024-06-08 11:20 | disposition home or self-care (01) ==
LOC: ANHLAB 11:19
PROVIDERS: Visit Provider Internal Medicine Hematology & Oncology
DX: C71.9 Malignant neoplasm of brain, unspecified (principal)
CPT/HCPCS: 36415; 80047; 80053; 85025

== ENCOUNTER 2024-07-27 14:08 | Outpatient (CLI) | payer OTHER, SELFPAY ==
--- NOTE | ~2024-07-27 | MR_ITS ---
EXAMINATION: MR brain/brain stem wo/w con DATE: 07/27/2024 14:56 INDICATION: Malignant neoplasm of brain, unspecified. TECHNIQUE: Magnetic resonance imaging (MRI) of the brain and brainstem was performed without and with 20 mL ProHance intravenous contrast. COMPARISON: Brain MRI 04/12/2024 FINDINGS: There are changes of resection of the parafalcine frontal lobes and adjacent corpus callosu m. There is stable increased T2-weighted signal intensity at the margins of the resection, consistent with gliosis versus changes of radiation therapy. There is no acute ischemic infarct. There is thick ening and enhancement of the dura in the surgical bed, consistent with surgical change. There is ex v acuo dilatation of the frontal horns of the lateral ventricles. There is mucosal thickening in the pa ranasal sinuses. There is dependent fluid in the maxillary sinuses. The mastoid air cells are normal. The orbits are normal. IMPRESSION: 1. No specific evidence of residual or recurrent tumor. Comparison with preoperative imaging is recom mended. Reviewed, dictated and finalized at location A. IMPRESSION: 1. No specific evidence of residual or recurrent tumor. Comparison with preoper ative imaging is recommended.
--- OUTSIDE RECORDS SUMMARY | 2024-07-27 14:27 | XMS_ITS | Clinical Summary ---
Author Organization [facility] Address [address] [place] [phone] Phone Care Team Providers Care Director Nicu Name Role Phone Kei Sanchez Primary Care Provider [phone] Allergies No known active allergies Medications naproxen [...] drink = 0.6 oz pu re alcohol) [facility] Utilities Answer Date Recorded In the [...] week 09/25/2023 How often do you attend voodoo or denominational serv ices? Never 09/25/2023 Do you belong to any clubs o r organizations such as voodoo groups, unions, fraternal or athletic groups, or [...] medical care, and heating? Somewhat hard 09/25/2023 [facility] [place] of Occupat ional Health - Occupational Stress [...] place to sleep or slept in a fdc (including now)? No 09/25/2023 Housing Stability Vital [...] 57 09/29/2023 10:15 AM CDT Temperature 36 C (96.8 F) 09/29/2023 6:30 AM CDT Respiratory Rate 16 [...] on patient's age to complete this topic Insurance Care Teams Director Nicu Relationship Specialty Start Date End Date Kei Sanchez, JUAN F [address] [place] [address] PCP - General Physician Tissue Coordinator 09/26/23
--- OUTSIDE RECORDS SUMMARY | 2024-07-27 14:27 | XMS_ITS | Clinical Summary ---
Author Organization [facility] Address [address] [place] [address] Care Team Providers Care Clinical Operations Specialist Name Role Phone Unavailable Primary Care Provider Unavailabl e Allergies No known active allergies Medications ondansetron (ZOFRAN) 8 mg Tablet Take 1 Tablet (8 mg) by mouth every 8 hours as needed for Nausea/Emesis . 30 Tablet 1 4 Active temozolomide (Temodar) 100 mg capsule Take 4 capsules (400 mg) by mouth daily before breakfast on Days 1 through 5 every 28 days 20 Capsule 5 5 Active temozolomide (Temodar) 100 mg capsule Take 4 capsules (400 mg) by mouth daily before breakfast on Days 1 through 5 every 28 days 20 Capsule 5 4 07/20/19 25 Discontinu ed(Reorder ) temozolomide (Temodar) 100 mg capsule Take 4 capsules (400 mg) by mouth daily before breakfast on Days 1 through 5 every 28 days 20 Capsule 5 5 07/26/19 25 Discontinu ed(Reorder ) Active Problems No known active problems Encounters Date Type Department Care Team Description 07/25/2024 External Device Data STL ABSTRACTION Provider, Abstract 07/25/2024 [facility] Oncology and Hematology - [place] [address] [place] [address] Genaro Dubose MD 07/19/2024 Refill [facility] Oncology and Hematology - [address] [place] [address] Genaro Dubose MD 07/14/2024 External Device Data STL ABSTRACTION Provider, Abstract 07/13/2024 External Device Data STL ABSTRACTION Provider, Abstract 07/11/2024 External Device Data STL ABSTRACTION Provider, Abstract 06/18/2024 Refill [facility] Oncology and Hematology - [address] [place] [address] Genaro Dubose MD 06/11/2024 Orders Only [facility] Oncology and Hematology - [address] [place] [address] Genaro Dubose MD 06/08/2024 11:45 AM INTERVENTIONAL TECHNOLOGIST Office Visit [facility] Oncology and Hematology - [address] [place] [address] Genaro Dubose MD 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/30/[address] [facility] [address] [place] [phone] Cristel Nolen, PHARMACIST Specialty Pharmacy Refill Coordination from Last 3 Months Family History Medical [...] Sign Reading Time Taken Comments Blood Pressure 121/76 06/08/2024 11:38 AM INTERVENTIONAL TECHNOLOGIST Pulse 83 06/08/2024 11:38 AM INTERVENTIONAL TECHNOLOGIST Temperature 37 C (98.6 F) 06/08/2024 11:38 AM INTERVENTIONAL TECHNOLOGIST Respiratory Rate 17 06/08/2024 11:3 8 AM INTERVENTIONAL TECHNOLOGIST Oxygen Saturation 97% 06/08/2024 11: 38 AM INTERVENTIONAL TECHNOLOGIST Inhaled Oxygen Concentration - - Weight 99.2 kg (218 lb 12.8 oz) 025 11:38 AM INTERVENTIONAL TECHNOLOGIST Height 182.9 cm (6') 01/27/2024 2:11 PM CDT Body Mass Index 29.67 01/27/2024 2:11 PM CDT Plan of Treatment Upcoming Encounters Date Type Department Care Team (Late st Contact Info) Description 07/30/2024 11:00 AM CDT Office Visit [facility] Oncology and Hematology - [address] [facility] [address] [place] [address] Genaro Dubose MD [address] [place] [address] Health Maintenance Due Date Last [...] Associated Diagnosis Comments COMPREHENSIVE METABOLIC PANEL Routine 06/08/2024 9:19 AM INTERVENTIONAL TECHNOLOGIST BASIC METABOLIC PANEL Routine 06/08/2024 9:16 AM INTERVENTIONAL TECHNOLOGIST from Last 3 Months Results * COMPREHENSIVE METABOLIC PANEL (06/08/2024 9:19 AM INTERVENTIONAL TECHNOLOGIST) Blood us Genaro Dubose MD CHEMISTRY ORDERABLES Final Resu lt * BASIC METABOLIC PANEL (06/08/2024 9:16 AM INTERVENTIONAL TECHNOLOGIST) Blood Genaro Dubose MD CHEMISTRY ORDERABLES Final Resu lt from Last 3 Months Insurance [facility] PLAN MEDICAID RX [employer] Commercial
--- OUTSIDE RECORDS SUMMARY | 2024-07-27 14:27 | XMS_ITS | Clinical Summary ---
Author Organization [facility] Address [address] [place] [address] Care Team Providers Care Inside Sales Account Manager Name Role Phone Unavailable Primary Care Provider Unavailabl e Source Comments [facility],non-owned Affiliates and Associated Physician Practices is amultiple site organization consisting of ambulatory clinics and hospital sitesin [place], [place], [place] and [place]. This disclosure is being madepursuant to the Care Everywhere program and may not contain all information available regarding this patient. Last updated 18.[facility] Allergies No known active allergies Medications * [...] Type Department Care Team Description 05/21/2024 Telephone [facility] [id number] [place] [address] Janice Camacho RN General from [...] Recorded Patient Health Questionnaire-2 Score 0 11/30/2023 [facility] [place] of Occupat ional Health - Occupational Stress [...] place to sleep or slept in a usp (including now)? No 11/03/2023 Sex and Gender Information Value Date Recorded Sex Assigned at Not on file Gender Identity Not on file Sexual Orientation Not on file Last Filed Vital Signs Vital Sign Reading Time Taken Comments Blood Pressure 112/80 12/27/2023 9:45 AM CDT Pulse 84 12/27/2023 9:45 AM CDT Temperature 36.8 C (98.3 F) 12/27/2023 9:45 AM CDT Respiratory Rate 18 12/27/2023 9:45 AM CDT [...] - 19+ 3-dose series) 2005 COVID-19 VACCINE (2023-2 5 season) 2024 09/14/2020, 08/17/2020 INFLUENZA VACCINE (#1) 2024 DEPRESSION SCREENING 05/09/2024 11/30/2023 ZOSTER VACCINE (1 of 2) 2036 HIB VACCINE Aged Out No longer eligi ble based on patient's age to complete this topic HPV VACCINE Aged Out No longer eligi ble based on patient's age to complete this topic MENINGOCOCCAL (Group B) VACCINE SHARED DECISION-MAKING Aged Out No longer eligible based on patient's age to complete this topic MENINGOCOCCAL GROUPS A/C/Y/W VACCINE Aged Out No longer eligible b ased on patient's age to complete this topic PNEUMOCOCCAL VACCINE Aged Out No long er eligible based on patient's age to complete this topic Medical Devices Implanted Type Area Change Over Device Identifier Shelf Expiration Date Model / Serial / Lot Graft Tissue Drgn + Bvn Clgn Mtrx 5x4in Implanted:Qty: 1 on 11/09/2023 by Guillermo Tapia MD at [facility] Integra Neurosciences [id number] [id number] / / Cover Bur Hl .4mm 7mm Unv Neuro Iii Ti Implanted:Qty: 4 on 11/09/2023 by Miky Barger MD at [facility] Cranial [place] Craniomaxillofacial [id number] / / Screw 1.5mm 4mm Slf Drl Ax Stab Unv Implanted:Qty: 15 on 11/09/2023 by Miky Barger MD at [facility] Cranial [place] Craniomaxillofacial [id number] / / Cerebroflo Evd Catheter Implanted:Qty: 1 on 11/09/2023 by Miky Barger MD at [facility] Brain 01/13/2025 [id number] Advance Directives Documents on File Type Date Recorded Patient Strap Setter Expl anation Adv Directive/Living Will/POA 11/11/2023 9:45 AM Adv Directive/Living Will/POA 11/08/2023 2:18 PM * Full Code (Latest Code Status on File) Date Activated Date Inactivated Comments 11/03/2023 5:03 PM 11/15/2023 5:11 PM
--- OUTSIDE RECORDS SUMMARY | 2024-07-27 14:27 | XMS_ITS | Encounter Summary ---
Author Organization [facility] Address [address] [place] [address] Care Team Providers Care Real Estate Rep Name Role Phone Unavailable Primary Care Provider Unavailabl e Encounter Details Date Type Department Care Team (Late st Contact Info) Description 07/25/2024 External Device Data STL ABSTRACTION Provider, Abstract NO ADDRESS ON FILE Social History Tobacco Use Types Packs/Day Years Used Date Smoking Tobacco: Never Alcohol Use Standard Drinks/Week Comments Yes 0 (1 standard drink = 0.6 oz pure alcohol) on the weekends two or three beers Sex and Gender Information Value Date Recorded Sex Assigned at Not on file Legal Sex Male 3:13 PM CDT Gender Identity Not on file Sexual Orientation Not on file documented as of this encounter Plan of Treatment Upcoming Encounters Date Type Department Care Team (Late st Contact Info) Description 07/30/2024 11:00 AM CDT Office Visit [facility] Oncology and Hematology - [place] [address] [place] [address] [facility] [address] [place] [address] Genaro Dubose MD [address] [place] [address] documented as of this encounter Visit Diagnoses Not on filedocumented in this encounter
--- OUTSIDE RECORDS SUMMARY | 2024-07-27 14:27 | XMS_ITS | Continuity of Care Document ---
Author Organization [facility] Address [address] [place] [address] [address] [place] [address] Phone Care Team Providers Care Glass Toughening Operator Name Role Phone Ros Sosa Unavailable Unavailable Procedures Procedure Date Remove Foreign Body From Eye Advance Directives Directive Yes / No Effective Date File Name No Information Encounters Encounter Description Practice Location Reason(s) For Visit Diagnoses Date Provider Providers Copied on Encounter [facility], [address] [place] [address] [address], [place], [place], [id number], [place] tel:[phone] [facility] No Information [address] Sommer. [address] [facility] , [address], [place], [address], [place]. tel:[phone] Family History Family Member Type Diagnosis Age At Onset No Information Payers Payer name Insurance type Covered green party ID Authoriza tion(s) No Information Social History [...]
== END 2024-07-27 14:09 | disposition home or self-care (01) ==
PROVIDERS: PCP Internal Medicine Hematology & Oncology; Visit Provider Radiology Radiation Oncology
DX: C71.9 Malignant neoplasm of brain, unspecified (principal)
CPT/HCPCS: 70553; A9579

== ENCOUNTER 2024-07-30 10:49 | Outpatient (CLI) | payer OTHER, SELFPAY ==
[2024-07-30 11:15] LABS: Basophils Percent Auto 0.4 % (0.2-1.2); Eosinophils Absolute Auto 0.1 K/mm3 (0-0.3); Eosinophils Percent Auto 0.6 % (0-4.4); Hematocrit 44.3 % (42.0-52.0); Immature Granulocyte Absolute 0.05 K/mm3 (0.00-0.031); Immature Granulocyte Percent A 0.6 % (0-0.5); Lymphocytes Absolute Auto 1.21 K/mm3 (0.9-3.2); Lymphocytes Percent Auto 14.3 % (18.3-44.2); Mean Corpuscular HGB Conc 33.9 g/dl (32-36); Mean Corpuscular Volume 85.5 fl (80-100); Monocytes Absolute Auto 0.7 K/mm3 (0.1-0.6); Monocytes Percent Auto 7.7 % (2.6-8.5); Neutrophils Absolute Auto 6.5 K/mm3 (1.3-6.7); Neutrophils Percent Auto 76.4 % (45.5-73.1); Platelet Count Result 249 k/mm3 (150-375); Red Blood Count 5.18 M/mm3 (4.6-6.20); Red Cell Distribution Width 13.3 % (11.5-14.5); White Blood Count 8.5 K/mm3 (4.5-10.0)
[2024-07-30 11:18] LABS: Blood Urea Nitrogen 13 mg/dL (8-26); Carbon Dioxide 25 mmol/L (22-30); Chloride 103 mmol/L (98-109); Estimated Glomerular Filt Rate > 60; Glucose 87 mg/dL (70-105); Ionized Calcium (POC) 1.19 mmol/L (1.11-1.31); Potassium 4.7 mmol/L (3.5-4.9); Sodium 141 mmol/L (138-146)
--- OUTSIDE RECORDS SUMMARY | 2024-07-30 12:45 | XMS_ITS | Clinical Summary ---
Author Organization [facility]am[facility] hub[facility] Kunal Address [address] [place] [address] Care Team Providers Care Chicken Stuffer Name Role Phone Unavailable Primary Care Provider [...] Encounters Date Type Department Care Team Description 07/30/2024 11:00 AM CDT Office Visit [facility] Oncology and Hematology - [address] [place] [address] Genaro Dubose MD Oligodendroglioma (CMS/HCC) (Primary Dx) 07/30/2024 Orders Only [facility] Oncology and Hematology [address] [place] [address] Genaro Dubose MD 07/25/2024 External Device Data STL ABSTRACTION Provider, Abstract 07/25/2024 Refill [facility] Oncology and Hematology - [address] [place] [address] Genaro Dubose MD 07/19/2024 Refill [facility] Oncology and Hematology - [address] [place] [address] Genaro Dubose MD 07/14/2024 External Device Data STL ABSTRACTION Provider, Abstract 07/13/2024 External Device Data STL ABSTRACTION Provider, Abstract 07/11/2024 External Device Data STL ABSTRACTION Provider, Abstract 06/18/2024 Refill [facility] Oncology and Hematology - [address] [place] [address] Genaro Dubose MD 06/11/2024 Orders Only [facility] Oncology and Hematology - [address] [place] [address] Genaro Dubose MD 06/08/2024 11:45 AM FACTORY LABORER Office Visit [facility] Oncology and Hematology - [address] [place] [address] Genaro Dubose MD Oligodendroglioma (CMS/HCC) (Primary Dx) [...] Sign Reading Time Taken Comments Blood Pressure 122/81 07/30/2024 11:15 AM CDT Pulse 85 07/30/2024 11:15 AM CDT Temperature 36.9 C (98.5 F) 07/30/2024 11:15 AM CDT Respiratory Rate 15 07/30/2024 11:1 5 AM CDT Oxygen Saturation 97% 07/30/2024 11: 15 AM CDT Inhaled Oxygen Concentration - - Weight 100.4 kg (221 lb 6.4 oz) 025 11:15 AM CDT Height 182.9 cm (6') 01/27/2024 2:11 PM CDT Body Mass Index 30.03 01/27/2024 2:11 PM CDT Plan of Treatment Upcoming Encounters Date Type Department Care Team (Late st Contact Info) Description 09/24/2024 11:15 AM CDT Office Visit [facility] Oncology and Hematology - [address] [facility] [address] [place] [address] Genaro Dubose MD [address] [facility] [address] [place] [address] Health Maintenance Due Date Last [...] Procedure Name Priority Date/Time Associated Diagnosis Comments MRI BRAIN W WO CONTRAST Routine 07/28/19 25 10:31 AM CDT COMPREHENSIVE METABOLIC PANEL Routine 06/08/2024 9:19 AM FACTORY LABORER BASIC METABOLIC PANEL Routine 06/08/2024 9:16 AM FACTORY LABORER from Last 3 Months Results * MRI BRAIN W WO CONTRAST (07/27/2024 10:31 AM CDT) Anatomical Region Laterality Modality Head Magnetic Resonan ce us Genaro Dubose MD MR ORDERABLES Final Result * COMPREHENSIVE METABOLIC PANEL (06/08/2024 9:19 AM FACTORY LABORER) Blood Genaro Dubose MD CHEMISTRY ORDERABLES Final Resu lt * BASIC METABOLIC PANEL (06/08/2024 9:16 AM FACTORY LABORER) Blood Genaro Dubose MD CHEMISTRY ORDERABLES Final Resu lt from Last 3 Months Insurance MEDICAID RX [employer] Commercial
--- OUTSIDE RECORDS SUMMARY | 2024-07-30 12:45 | XMS_ITS | Encounter Summary ---
Author Organization [facility] Address [address] [place] [address] Care Team Providers Care Pillow Cleaner Name Role Phone Unavailable Primary Care Provider Unavailabl e Encounter Details Date Type Department Care Team ([facility] Contact Info) Description 07/30/2024 Orders Only [facility] Oncology and Hematology [facility] [address] [place] [address] Genaro Dubose MD [address] [place], [place] [address] [place] [address] [place] [address] Social History Tobacco Use Types Packs/Day Years [...] Upcoming Encounters Date Type Department Care Team ([facility] Contact Info) Description 09/24/2024 11:15 AM CDT Office Visit [facility] Oncology and Hematology - Sa[place] [address] [place] [address] Genaro Dubose MD [facility] [email or web address] [address] [place] [address] documented as of this encounter Procedures Procedure Name Priority Date/Time Associated Diagnosis Comments MRI BRAIN W WO CONTRAST Routine 07/27/2024 10:31 AM CDT documented in this encounter Results * MRI BRAIN W WO CONTRAST (07/27/2024 10:31 AM CDT) Anatomical Region Laterality Modality Head Magnetic Resonan ce us Genaro Dubose MD MR ORDERABLES Final Result documented in this encounter Visit Diagnoses Not on filedocumented in this encounter
--- OUTSIDE RECORDS SUMMARY | 2024-07-30 12:45 | XMS_ITS | Encounter Summary ---
Author Organization [facility] Address [address] [place] [address] Care Team Providers Care Band Maker Name Role Phone Unavailable Primary Care Provider Unavailabl e Reason for Referral * MRI (Routine) - Open Specialty Diagnoses / Procedures Referred By Brunilda buckner Referred To Contact Diagnoses Oligodendroglioma (CMS/HCC) Procedures MRI BRAIN W WO CONTRAST Genaro Dubose MD [address] [place] [address] Phone: tel: fax: [place] [phone] Referral ID Status Reason Start Date Expiration Date V isits Requested Visits Authorized [id number] Open STL CTS 07/30/2024 08/30/2025 1 1 Reason for Visit * Reason Comments Cancer Chemotherapy Encounter Details Date Type Department Care Team (Late st Contact Info) Description 07/30/2024 11:00 AM CDT Office Visit [facility] Oncology and Hematology [place] [address] [place] [facility] [place] [address] [place] [address] Genaro Dubose MD [address] [place] [address] Oligodendroglioma (CMS/HCC) (Primary Dx) Social History Tobacco Use Types Packs/Day Years [...] on file documented as of this encounter Last Filed Vital Signs Vital Sign Reading [...] 6.4 oz) 025 11:15 AM CDT Height - - Body Mass Index 30.03 01/27/2024 2:11 PM CDT documented in this encounter Progress Notes * Genaro Dubose MD - 07/30/2024 12:20 PM CDT HEMATOLOGY / ONCOLOGY PROGRESS NOTE Patient Identification: Name: Esa Walter Age: 39 y.o. Sex: male : 1985 DIAGNOSIS Oligodendroglioma of the bifrontal brain, WHO grade 3, s/p resection . S/p resection on November 09, 2023. 1p/19 q. deletion CURRENT TREATMENT Patient started maintenance Temodar on May 09, 2023 TREATMENT HISTORY Patient completed concurrent chemoradiation therapy with Temodar on March 15, 2024. SUBJECTIVE Patient came into the office for follow-up visit. He denies any nausea vomiting. No headaches and seizures. Weight and appetite stable. No other new complaints. Review of system Constitutional: Patient did not mention fevers, sweats, weight and appetite stable, denies any tiredness and fatigue HEENT: Patient did not mention sinus congestion, hearing or vision problems Respiratory: Patient did not mention cough, dyspnea, wheeze Cardiovascular: Patient did not mention chest pain, exertional chest pressure/discomfort, nausea, syncope, shortness of breath GI: Patient did not mention constipation, diarrhea, dsyphagia, reflux symptoms, vomiting, melena : Patient did not mention dysuria, frequency, incontinence, urgency Integumentary system: no lymphadenopathy, sweats, flushing Musculoskeletal: Patient not mention: myalgia, arthralgia Neurological: Patient did not mention blurry or disturbed vision, numbness/weakness, dizziness Skin: No lumps, bumps or rashes. 12 point review of system was reviewed Objective: Vital signs in last 24 hours: As per nursing note Exam: General appearance: alert, cooperative, no distress, appears stated age Head: normocephalic, without obvious abnormality, atraumatic Eyes: conjunctivae/corneas clear, EOM's intact Ears: normal external ear canals AU Nose: Nares normal. Septum midline. Mucosa normal. No drainage or sinus tenderness Throat: Lips, mucosa, and tongue normal. Teeth and gums normal Neck: supple, symmetrical, trachea midline. Lungs: clear to auscultation bilaterally Heart: regular rate and rhythm, S1, S2 normal, no murmur, click, rub or gallop Abdomen: soft, non-tender. Bowel sounds normal. No masses, No organomegaly Extremities: extremities normal, atraumatic, no cyanosis or edema Skin: Skin color, texture, turgor normal. No rashes or lesions Lymph nodes: No lymphadenopathy Neuro: No obvious focal deficit Exam as above PATH LABS Labs from February 16 showed WBC 6.7 hemoglobin 14.6 platelet 287,000 creatinine 1.2 Labs from March 19 showed WBC 5.0 hemoglobin 14.6 platelet 175,000 creatinine 1.1 Labs from June 08 showed WBC 5.1 hemoglobin 15.5 platelet 134,000 Labs from July 30 showed WBC 8.5 hemoglobin 15 platelet 249,000 creatinine 1.1 Assessment: Plan: There are no active problems to display for this patient. Oligodendroglioma of the bifrontal brain, WHO grade 3, s/p resection . S/p resection on November 09, 2023. FISH testing showed 1P/19Q deletion Patient completed concurrent chemoradiation therapy treatment on March 15, 2024. MRI done on April 12 showed no specific evidence of residual or recurrence of disease. Patient started maintenance Temodar 200 mg/m?? daily for 5 days on every 28-day cycle on May. Patient is still waiting to start cycle #3 of chemotherapy with Temodar as he has not received the medicine yet. MRI brain done on July 27, 2024 showed no evidence of relapse of disease. He will continue maintenance Temodar for between 6-12 cycles. Follow-up with me in 2 months with repeat brain MRI in 7 weeks. Thrombocytopenia. Resolved. 07/30/2024 Genaro Dubose MD documented in this encounter Plan of Treatment Upcoming Encounters Date Type Department Care Team (Late st Contact Info) Description 09/24/2024 11:15 AM CDT Office Visit [facility] Oncology and Hematology - [place] [facility] [address] [place] [address] Genaro Dubose MD [address] [facility] [address] [place] [address] Scheduled Orders Name Type Priority Associated Diagnoses Orde r Schedule CBC WITH DIFFERENTIAL Lab Stat Oligodendroglioma (CMS/HCC) Expected: 09/24/2024, Expires: 07/30/2025 COMPREHENSIVE METABOLIC PANEL Lab Stat Oligodendroglioma (CMS/HCC) Expected: 09/24/2024, Expires: 07/30/2025 MRI BRAIN W WO CONTRAST Imaging Routine Oligodendroglioma (CMS/HCC) Expected: 09/17/2024, Expires: 07/30/2025 documented as of this encounter Visit Diagnoses Diagnosis Oligodendroglioma (CMS/HCC)- Primary Malignant neoplasm of brain, unspecified site documented in this encounter
--- OUTSIDE RECORDS SUMMARY | 2024-07-30 12:45 | XMS_ITS | Clinical Summary ---
Author Organization [facility] Address [address] [place] [address] Care Team Providers Care Spine Surgeon Name Role Phone Unavailable Primary Care Provider Unavailabl e Source Comments [facility],non-owned Affiliates and Associated Physician Practices is amultiple site organization consisting of ambulatory clinics and hospital sitesin [place], [place], [place] and [place]. This disclosure is being madepursuant to the Care Everywhere program and may not contain all information available regarding this patient. Last updated 18.[facility] Allergies No known active allergies Medications * [...] Type Department Care Team Description 05/21/2024 Telephone [place] [address] [place] [address] Janice Camacho RN General from [...] Recorded Patient Health Questionnaire-2 Score 0 11/30/2023 [facility] [place] of Occupat ional Health - Occupational Stress [...] place to sleep or slept in a mcc (including now)? No 11/03/2023 Sex and Gender [...] this topic Medical Devices Implanted Type Area Nanotechnology Engineering Technologist Device Identifier Shelf Expiration Date Model / Serial / Lot Graft Tissue Drgn + Bvn Clgn Mtrx 5x4in Implanted:Qty: 1 on 11/09/2023 by Guillermo Tapia MD at [facility] Brain Integra Neurosciences [id number] / / Cover Bur Hl .4mm 7mm Unv Neuro Iii Ti Implanted:Qty: 4 on 11/09/2023 by Miky Barger MD at [facility] Cranial Fred Craniomaxillofacial [id number] / / Screw 1.5mm 4mm Slf Drl Ax Stab Unv Implanted:Qty: 15 on 11/09/2023 by Miky Barger MD at [facility] Cranial Fred Craniomaxillofacial [id number] / / Cerebroflo Evd Catheter Implanted:Qty: 1 on 11/09/2023 by Miky Barger MD at [facility] Brain 01/13/[phone] [id number] Advance Directives Documents on File Type Date Recorded Patient Personnel Administrator Expl anation Adv Directive/Living Will/POA 11/11/2023 9:45 AM Adv Directive/Living Will/POA 11/08/2023 2:18 PM * Full Code (Latest Code Status on File) Date Activated Date Inactivated Comments 11/03/2023 5:03 PM 11/15/2023 5:11 PM
--- OUTSIDE RECORDS SUMMARY | 2024-07-30 12:45 | XMS_ITS | Continuity of Care Document ---
Author Organization [facility] Address [address] [place] [address] [address] [place] [address] Phone Care Team Providers Care Silverlight Developer Name Role Phone Ros Sosa Unavailable Unavailable Procedures Procedure Date Remove Foreign Body From Eye Advance Directives Directive Yes / No Effective Date File Name No Information Encounters Encounter Description Practice Location Reason(s) For Visit Diagnoses Date Provider Providers Copied on Encounter [facility], [address] [place] [address] [address], [place], [place], [id number], [place] tel:[phone] [facility] No Information [address] [facility] , [address], [place], [address], [place]. tel:[phone] Family History Family Member Type Diagnosis Age At Onset No Information Payers Payer name Insurance type Covered constitution party ID Authoriza tion(s) No Information Social [...]
--- OUTSIDE RECORDS SUMMARY | 2024-07-30 12:45 | XMS_ITS | Clinical Summary ---
Author Organization [facility] Address [address] [place] [phone] Phone Care Team Providers Care Front End Loader Driver Name Role Phone Kei Sanchez Primary Care Provider [phone] Allergies No known active allergies Medications naproxen [...] drink = 0.6 oz pu re alcohol) [facility] Utilities Answer Date Recorded In the past [...] week 09/25/2023 How often do you attend bahai or cheondoism serv ices? Never 09/25/2023 Do you belong to any clubs o r organizations such as bahai groups, unions, fraternal or athletic groups, or [...] medical care, and heating? Somewhat hard 09/25/2023 [facility] [place] of Occupat ional Health - Occupational Stress [...] place to sleep or slept in a senior living (including now)? No 09/25/2023 Housing Stability Vital [...] to complete this topic Insurance Care Teams Front End Loader Driver Relationship Specialty Start Date End Date Kei Sanchez, JUAN F [address] [place] [address] PCP - General Physician Pool Finisher 09/26/23
== END 2024-07-30 10:50 | disposition home or self-care (01) ==
LOC: ANHLAB 10:50
PROVIDERS: PCP Internal Medicine Hematology & Oncology; Visit Provider Internal Medicine Hematology & Oncology
DX: C71.9 Malignant neoplasm of brain, unspecified (principal)
CPT/HCPCS: 36415; 80047; 85025

== ENCOUNTER 2024-09-17 08:55 | Outpatient (CLI) | payer OTHER, SELFPAY ==
--- NOTE | ~2024-09-17 | MR_ITS ---
EXAMINATION: MR brain/brain stem wo/w con DATE: 09/17/2024 09:48 INDICATION: Oligodendroglioma TECHNIQUE: Magnetic resonance imaging (MRI) of the brain and brainstem was performed without and with 20 mL ProHance intravenous contrast. Sequences included sagittal and axial T1-weighted SE, axial dif fusion-weighted FS SE, axial 3D SWAN, axial T2-weighted FLAIR, and axial T2-weighted FSE. Postcontras t axial, sagittal and coronal T1-weighted FSE was obtained. Apparent diffusion coefficient (ADC) maps were created. COMPARISON: 07/27/2024 FINDINGS: Status post bilateral frontal craniotomy. Stable appearance of change of resection of the parafalcine anterior frontal lobes and anterior portion of the corpus callosum. No significant interval change i n a thin linear enhancements along the resection margins or surrounding increased T2 signal, the latt er consistent with secondary gliosis related to prior surgery or radiation treatment. There is mild d ural enhancement overlying the surgical bed. No new regions of enhancement identified to suggest resi dual or locally recurrent disease. There are no areas of restricted diffusion to suggest acute infarc tion. No intracranial hemorrhage or abnormal intracranial mass lesion. There are no intraparenchymal signal abnormalities seen on the other pulse sequences. Mild left-sided predominant ex vacuo dilation of the frontal horns of the lateral ventricles The ventricles are otherwise symmetric and normal in size. There are no abnormal extra-axial fluid collections. Flow voids are seen in the cerebral arteri es on the T2-weighted sequences consistent with their expected patency. Mild mucosal thickening the p aranasal sinuses with large mucous retention cyst in the left maxillary sinus. Visualized orbits and soft tissues are unremarkable. . IMPRESSION: 1. 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 Reviewed, dictated and finalized at location A. IMPRESSION: 1. Stable appearance of resection of the bilateral parafalcine frontal lobes an d adjacent corpus callosum, reportedly for oligodendroglioma with no evident re sidual or recurrent disease.
--- OUTSIDE RECORDS SUMMARY | 2024-09-17 09:04 | XMS_ITS | Continuity of Care Document ---
Author Organization [facility] Address [address] [place] [address] [address] [place] [address] Phone Care Team Providers Care Train Operations Manager Name Role Phone Ros Sosa Unavailable Unavailable Procedures Procedure Date Remove Foreign Body From Eye Advance Directives Directive Yes / No Effective Date File Name No Information Encounters Encounter Description Practice Location Reason(s) For Visit Diagnoses Date Provider Providers Copied on Encounter [facility], [address] [place] [address] [address], [place], [place], [id number], [place] tel:[phone] [facility] No Information [address]. [address] [facility] , [address], [place], [address], [place]. tel:[phone] Family History Family Member Type Diagnosis Age [...]
--- OUTSIDE RECORDS SUMMARY | 2024-09-17 09:04 | XMS_ITS | Clinical Summary ---
Author Organization [facility] Familia hubbard Kunal Address [address] [place] [address] Care Team Providers Care Accounting File Clerk Name Role Phone Unavailable Primary Care Provider [...] 28 days 20 Capsule 5 5 Active Active Problems No known active problems Encounters Date Type Department Care Team Description 09/13/2024 Abstract [facility] Oncology and Hematology - [address] [place] [address] Genaro Dubose MD 08/14/2024 External Device Data STL ABSTRACTION Provider, Abstract 07/31/2024 Orders Only [facility] Oncology and Hematology - [address] [place] [address] Genaro Dubose MD 07/30/2024 11:00 AM CDT Office Visit [facility] Oncology and Hematology - [address] [place] [address] Genaro Dubose MD Oligodendroglioma (CMS/HCC) (Primary Dx) 07/30/2024 Orders Only [facility] Oncology and Hematology - [address] [place] [address] Genaro Dubose MD 07/25/2024 External Device Data STL ABSTRACTION Provider, Abstract 07/25/2024 Refill [facility] Oncology and Hematology - [address] [place] [address] Genaro Dubose MD 07/19/2024 Refill [facility] Oncology and Hematology - [address] [place] [address] Genaro Dubose MD 07/14/2024 External Device Data STL ABSTRACTION Provider, Abstract 07/13/2024 External Device Data STL ABSTRACTION Provider, Abstract 07/11/2024 External Device Data STL ABSTRACTION Provider, Abstract from Last 3 Months Family History Medical [...] Description 09/24/2024 11:15 AM CDT Office Visit [facility] Oncology and Hematology - [address] [facility] [address] [place] [address] Genaro Dubose MD [address] [facility] [address] [place] [address] Health Maintenance Due Date Last Done Comments Pre-Diabetes and Diabetes Screening 1985 DTAP/TDAP/TD VACCINES (1 - Tdap) 2005 INFLUENZA VACCINE (#1) 2023 COVID-19 Vaccine (3 - 2023- season) 2024 09/14/2020, 08/17/2020 HEPATITIS B VACCINES Completed 05/15/1998, 12/26/1997, 11/21/1997 HPV VACCINES Aged Out No longer eligi ble based on patient's age to complete this topic Procedures Procedure Name Priority Date/Time Associated Diagnosis Comments BASIC METABOLIC PANEL Routine 07/30/2024 3:29 PM CDT MRI BRAIN W WO CONTRAST Routine 07/27/2024 10:31 AM CDT from Last 3 Months Results * BASIC METABOLIC PANEL (07/30/2024 3:29 PM CDT) Blood Genaro Dubose MD CHEMISTRY ORDERABLES Final Resu lt * MRI BRAIN W WO CONTRAST (07/27/2024 10:31 AM CDT) Anatomical Region Laterality Modality Head Magnetic Resonan ce Genaro Dubose MD MR ORDERABLES Final Result from Last [address] [place] [address] MEDICAID RX [employer] Commercial RX [employer] Commercial
--- OUTSIDE RECORDS SUMMARY | 2024-09-17 09:04 | XMS_ITS | Clinical Summary ---
Author Organization [facility] Address [address] [place] [phone] Phone Care Team Providers Care Mushroom Picker Name Role Phone Kei Sanchez Primary Care Provider [phone] Allergies No known active allergies Medications naproxen [...] drink = 0.6 oz pu re alcohol) [facility] Utilities Answer Date Recorded In the [...] week 09/25/2023 How often do you attend confucianist or samaritan serv ices? Never 09/25/2023 Do you belong to any clubs o r organizations such as confucianist groups, unions, fraternal or athletic groups, or [...] medical care, and heating? Somewhat hard 09/25/2023 [facility] [place] of Occupat ional Health - Occupational Stress [...] place to sleep or slept in a halfway (including now)? No 09/25/2023 Housing Stability Vital [...] to complete this topic Insurance Care Teams Mushroom Picker Relationship Specialty Start Date End Date Kei Sanchez, JUAN F [address] [place] [address] PCP - General Physician Line Service Attendant 09/26/23
--- OUTSIDE RECORDS SUMMARY | 2024-09-17 09:04 | XMS_ITS | Clinical Summary ---
Author Organization [facility] Address [address] [place] [address] Care Team Providers Care Fpga Engineer Name Role Phone Unavailable Primary Care Provider Unavailabl e Source Comments [facility],non-owned Affiliates and Associated Physician Practices is amultiple site organization consisting of ambulatory clinics and hospital sitesin [place], [place], [place] and [place]. This disclosure is being madepursuant to the Care Everywhere program and may not contain all information available regarding this patient. Last updated 18.[facility] Allergies No known active allergies Medications * Be aware that medications may not be up to date on this document. Alwaysverify current medications with the patient. dexAMETHasone (Decadron) 4 MG tablet Take 1 (one) tablet by mouth 3 times daily for 1 day, THEN 1 (one) tablet 2 times daily for 2 days, THEN 0.5 (one-half) tablet 3 times daily for 2 days, THEN 0.5 (one-half) tablet 2 times daily for 30 days. 40 tablet 4 Active prochlorperazin e (Compazine) 10 MG tablet Take 1 (one) tablet by mouth every 6 hours as needed for Nausea/Vomiting 120 tablet 11 4 Active Additional Information Patient not taking.Reported on 12/27/2023 sulfamethoxazol e-trimethoprim (Bactrim; Septra) 400-80 MG tablet Take 1 (one) tablet by mouth every Tuesday, Tuesday & Tuesday 36 tablet 3 4 Active Additional Information Patient not taking.Reported on 12/27/2023 temozolomide (Temodar) 140 MG capsuleIndicati ons:Brain tumor (HCC) TAKE ONE CAPSULE BY MOUTH ONCE DAILY WITH 20MG CAPSULE, ON AN EMPTY STOMACH ONE HOUR BEFORE RADIATION FOR 42 DAYS 42 capsule 4 01/06/20 25 Active temozolomide (Temodar) 20 MG capsuleIndicati ons:Brain tumor (HCC) TAKE ONE CAPSULE BY MOUTH ONCE DAILY WITH 140MG CAPSULE, ON AN EMPTY STOMACH, ONE HOUR BEFORE RADIATION FOR 42 DAYS 42 capsule 4 01/06/20 25 Active Active Problems Problem Noted Date Diagnosed Date 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 file Not on file Not on anand e Last Filed Vital Signs Vital Sign Reading [...] - 2023-2 5 season) 2024 09/14/2020, 08/17/2020 DEPRESSION SCREENING 05/09/2024 11/30/2023 INFLUENZA VACCINE (Season Ended) 2025 ZOSTER VACCINE (1 of 2) 2036 HIB [...] this topic Medical Devices Implanted Type Area Fuel Cell Systems Engineer Device Identifier Shelf Expiration Date Model / Serial / Lot Graft Tissue Drgn + Bvn Clgn Mtrx 5x4in Implanted:Qty: 1 on 11/09/2023 by Guillermo Tapia MD at [facility] Brain Integra Neurosciences [id number] / / Cover Bur Hl .4mm 7mm Unv Neuro Iii Ti Implanted:Qty: 4 on 11/09/2023 by Miky Barger MD at [facility] Cranial [place] Craniomaxillofacial [id number] / / Screw 1.5mm 4mm Slf Drl Ax Stab Unv Implanted:Qty: 15 on 11/09/2023 by Miky Barger MD at [facility] Cranial [place] Craniomaxillofacial [id number] / / Cerebroflo Evd Catheter Implanted:Qty: 1 on 11/09/2023 by Miky Barger MD at [facility] Brain 01/13/[id number] Insurance MEDICAID - [place] Advance Directives Documents on File Type Date Recorded Patient Employer Relations Representative Expl anation Adv Directive/Living Will/POA 11/11/2023 9:45 AM Adv Directive/Living Will/POA 11/08/2023 2:18 PM * Full Code (Latest Code Status on File) Date Activated Date Inactivated Comments 11/03/2023 5:03 PM 11/15/2023 5:11 PM
== END 2024-09-17 08:56 | disposition home or self-care (01) ==
PROVIDERS: PCP Internal Medicine Hematology & Oncology; Visit Provider Internal Medicine Hematology & Oncology
DX: C71.9 Malignant neoplasm of brain, unspecified (principal)
CPT/HCPCS: 70553; A9579

== ENCOUNTER 2024-09-24 11:04 | Outpatient (CLI) | payer OTHER, SELFPAY ==
[2024-09-24 11:15] LABS: Basophils Percent Auto 0.6 % (0.2-1.2); Eosinophils Absolute Auto 0.1 K/mm3 (0-0.3); Eosinophils Percent Auto 0.9 % (0-4.4); Hematocrit 44.5 % (42.0-52.0); Hemoglobin 15.2 g/dL (14.0-18.0); Immature Granulocyte Absolute 0.04 K/mm3 (0.00-0.031); Immature Granulocyte Percent A 0.6 % (0-0.5); Lymphocytes Absolute Auto 1.43 K/mm3 (0.9-3.2); Lymphocytes Percent Auto 21.5 % (18.3-44.2); Mean Corpuscular HGB Conc 34.2 g/dl (32-36); Mean Corpuscular Hemoglobin 29.8 pg (26-34); Mean Corpuscular Volume 87.3 fl (80-100); Mean Platelet Volume 9.2 fl (7.4-10.4); Monocytes Absolute Auto 0.8 K/mm3 (0.1-0.6); Monocytes Percent Auto 11.9 % (2.6-8.5); Neutrophils Absolute Auto 4.3 K/mm3 (1.3-6.7); Neutrophils Percent Auto 64.5 % (45.5-73.1); Platelet Count Result 211 k/mm3 (150-375); Red Cell Distribution Width 12.1 % (11.5-14.5); White Blood Count 6.7 K/mm3 (4.5-10.0)
[2024-09-24 11:19] LABS: Blood Urea Nitrogen 15 mg/dL (8-26); Carbon Dioxide 25 mmol/L (22-30); Chloride 104 mmol/L (98-109); Estimated Glomerular Filt Rate > 60; Glucose 81 mg/dL (70-105); Ionized Calcium (POC) 1.17 mmol/L (1.11-1.31); Potassium 4.2 mmol/L (3.5-4.9); Sodium 143 mmol/L (138-146)
--- OUTSIDE RECORDS SUMMARY | 2024-09-24 11:41 | XMS_ITS | Clinical Summary ---
Author Organization [facility] [employer] Address [address] [place] [address] Care Team Providers Care Bingo Manager Name Role Phone Unavailable Primary Care Provider Unavailabl e Source Comments [facility],non-owned Affiliates and Associated Physician Practices is amultiple site organization consisting of ambulatory clinics and hospital sitesin [place], [place], [place] and [place]. This disclosure is being madepursuant to the Care Everywhere program and may not contain all information available regarding this patient. Last updated 18.[facility] [employer] Allergies No known active allergies Medications * [...] Recorded Patient Health Questionnaire-2 Score 0 11/30/2023 [facility] [place] of Occupat ional Health - Occupational Stress [...] place to sleep or slept in a assisted (including now)? 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 Not on file [...] this topic Medical Devices Implanted Type Area Bowling Ball Grader Device Identifier Shelf Expiration Date Model / Serial / Lot Graft Tissue Drgn + Bvn Clgn Mtrx 5x4in Implanted:Qty: 1 on 11/09/2023 by Guillermo Tapia MD at [facility] Brain Integra Neurosciences [id number] / / Cover Bur Hl .4mm 7mm Unv Neuro Iii Ti Implanted:Qty: 4 on 11/09/2023 by Miky Barger MD at [facility] Cranial [place] Craniomaxillofacial [id number] / / Screw 1.5mm 4mm Slf Drl Ax Stab Unv Implanted:Qty: 15 on 11/09/2023 by Miky Barger MD at [facility] Cranial [place] Craniomaxillofacial [id number] / / Cerebroflo Evd Catheter Implanted:Qty: 1 on 11/09/2023 by Miky Barger MD at [facility] Brain 01/13/[phone] [id number] Insurance MEDICAID - [place] Advance Directives Documents on File Type Date Recorded Patient Wharf Hand Expl anation Adv Directive/Living Will/POA 11/11/2023 9:45 AM Adv Directive/Living Will/POA 11/08/2023 2:18 PM * Full Code (Latest Code Status on File) Date Activated Date Inactivated Comments 11/03/2023 5:03 PM 11/15/2023 5:11 PM
--- OUTSIDE RECORDS SUMMARY | 2024-09-24 11:41 | XMS_ITS | Encounter Summary ---
Author Organization [facility] [facility] Address [address] [place] [address] Care Team Providers Care Wallpaper Installer Name Role Phone Unavailable Primary Care Provider Unavailabl e Reason for Referral * MRI (Routine) - Open Specialty Diagnoses / Procedures Referred By Brunilda buckner Referred To Contact Diagnoses Oligodendroglioma (CMS/HCC) Procedures MRI BRAIN W WO CONTRAST Genaro Dubose MD [address] [place] [address] Phone: tel: fax: Referral ID Status Reason Start Date Expiration Date Visits Re quested Visits Authorized [id number] Open 09/24/2024 10/25/2025 1 1 Reason for Visit * Reason Comments Cancer Follow Up Encounter Details Date Type Department Care Team ([facility] st Contact Info) Description 09/24/2024 11:15 AM CDT Office Visit [facility] Oncology and Hematology - [place] [address] [place] [address] Genaro Dubose MD [address] [place] [address] Oligodendroglioma (CMS/HCC) (Primary Dx) Social [...] Sign Reading Time Taken Comments Blood Pressure 128/77 09/24/2024 11:20 AM CDT Pulse 73 09/24/2024 11:20 AM CDT Temperature 36.3 C (97.4 F) 09/24/2024 11:20 AM CDT Respiratory Rate 16 09/24/2024 11:20 AM CDT Oxygen Saturation 97% 09/24/2024 11:20 AM CDT Inhaled Oxygen Concentration - - Weight 99.5 kg (219 lb 6.4 oz) 09/24/2024 11:20 AM CDT Height - - Body Mass Index 29.76 01/27/2024 2:11 PM CDT documented in this encounter Progress Notes * Genaro Dubose MD - 09/24/2024 11:36 AM CDT HEMATOLOGY / ONCOLOGY PROGRESS NOTE Patient [...] on March 15, 2024. SUBJECTIVE Patient came to the office for follow-up visit. He has been tolerating Temodar with some nausea vomiting during the days of Temodar. Denies any diarrhea. Weight and appetite stable. No other new [...] 8.5 hemoglobin 15 platelet 249,000 creatinine 1.1 Labs from September 24 showed WBC 6.7 hemoglobin 15.2 platelet 211,000 creatinine 1.1 Assessment: Plan: There are no active problems to display for this patient. 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 S/p resection on November 09, 2023. FISH testing showed 1P/19Q deletion Patient completed concurrent chemoradiation therapy treatment on March 15, 2024. MRI done on April 12 showed no specific evidence of residual or recurrence of disease. Patient started maintenance Temodar 200 mg/mÂ² daily for 5 days on every 28-day cycle on May. Labs noted and stable. MRI was performed on 14 Sep [id number] showed stable findings without any evidence of residual or recurrence of the disease. Patient will start cycle #5 of Temodar on September 25. He will do 6 cycles of chemotherapy and then will stop due to side effects. I plan to see him back in 2months with repeat brain MRI. Thrombocytopenia. Resolved. Follow-up in 2 months 09/24/2024 Genaro Dubose MD documented in this encounter Plan of Treatment Upcoming Encounters Date Type Department Care Team (Late st Contact Info) Description 12/03/2024 11:15 AM CDT Office Visit [facility] Oncology and Hematology [facility] [address] [facility] [address] [place] [address] Genaro Dubose MD [address] [facility] [address] [facility] [address] [place] [address] Scheduled Orders Name Type Priority Associated Diagnoses Orde r Schedule CBC WITH DIFFERENTIAL Lab Stat Oligodendroglioma (CMS/HCC) Expected: 11/19/2024, Expires: 09/24/2025 COMPREHENSIVE METABOLIC PANEL Lab Stat Oligodendroglioma (CMS/HCC) Expected: 11/19/2024, Expires: 09/24/2025 MRI BRAIN W WO CONTRAST Imaging Routine Oligodendroglioma (CMS/HCC) Expected: 11/24/2024, Expires: 09/24/2025 documented as of this encounter Visit Diagnoses Diagnosis Oligodendroglioma (CMS/HCC)- Primary Malignant neoplasm of brain, unspecified site documented in this encounter
--- OUTSIDE RECORDS SUMMARY | 2024-09-24 11:41 | XMS_ITS | Clinical Summary ---
Author Organization [facility] Familia hubbard Kunal Address [address] [place] [address] Care Team Providers Care Chemical Operator Name Role Phone Unavailable Primary Care Provider [...] Encounters Date Type Department Care Team Description 09/24/2024 11:15 AM CDT Office Visit [facility] Oncology and Hematology [facility] [address] [place] [address] Genaro Dubose MD 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 Abstract [facility] Oncology and Hematology [facility] [address] [place] [address] Genaro Dubose MD 08/14/2024 External Device Data STL ABSTRACTION Provider, Abstract 07/31/2024 Orders Only [facility] Hematology [facility] [address] [facility] [place] [address] Genaro Dubose MD 07/30/2024 11:00 AM CDT Office Visit [facility] On[facility] Hematology [facility] [address] [facility] [place] [address] Genaro Dubose MD Oligodendroglioma (CMS/HCC) (Primary Dx) 07/30/2024 Orders Only [facility] Oncology and Hematology - [place] [address] [place] [address] Genaro Dubose MD 07/25/2024 External Device Data STL ABSTRACTION Provider, Abstract 07/25/2024 Refill [facility] Oncology and Hematology - [place] [address] [place] [address] Genaro Dubose MD 07/19/2024 Refill [facility] Oncology and Hematology - [place] [address] [place] [id number] Genaro Dubose MD 07/14/2024 External Device Data [...] 6.4 oz) 09/24/2024 11:20 AM CDT Height 182.9 cm (6') 01/27/2024 2:11 PM CDT Body Mass Index 29.76 01/27/2024 2:11 PM CDT Plan of Treatment Upcoming Encounters Date Type Department Care Team (Late st Contact Info) Description 12/03/2024 11:15 AM CDT Office Visit [facility] Oncology and Hematology - [place] [address] [place] [address] Genaro Dubose MD [address] [place] [address] Health Maintenance Due Date Last [...] METABOLIC PANEL (07/30/2024 3:29 PM CDT) Blood us Genaro Dubose MD CHEMISTRY ORDERABLES Final Resu lt * MRI BRAIN W WO CONTRAST (07/27/2024 10:31 AM CDT) Anatomical Region Laterality Modality Head Magnetic Resonan ce us Genaro Dubose MD MR ORDERABLES Final Result from Last 3 Months Insurance [facility] MEDICAID RX [employer] Commercial RX [employer] Commercial
--- OUTSIDE RECORDS SUMMARY | 2024-09-24 11:41 | XMS_ITS | Continuity of Care Document ---
Author Organization [facility] Address [address] [place] [address] [address] [place] [address] Phone Care Team Providers Care Human Capital Manager Name Role Phone Ros Sosa Unavailable Unavailable Procedures Procedure Date Remove Foreign Body From Eye Advance Directives Directive Yes / No Effective Date File Name No Information Encounters Encounter Description Practice Location Reason(s) For Visit Diagnoses Date Provider Providers Copied on Encounter [facility], [address] [place] [address] [address], [place], [place], [id number], [place] tel:[phone] [facility] No Information [address] Sheila Sommer. [address] , [address], [place], [address], [place]. tel:[phone] Family History Family Member Type Diagnosis Age [...]
--- OUTSIDE RECORDS SUMMARY | 2024-09-24 11:41 | XMS_ITS | Clinical Summary ---
Author Organization [facility] [employer] Address [address] [place] [phone] Phone Care Team Providers Care Ecommerce Project Manager Name Role Phone Kei Sanchez Primary Care Provider Allergies No known active allergies Medications naproxen [...] drink = 0.6 oz pu re alcohol) [facility] Utilities Answer Date Recorded In the past [...] week 09/25/2023 How often do you attend orthodox or judaism serv ices? Never 09/25/2023 Do you belong to any clubs o r organizations such as orthodox groups, unions, fraternal or athletic groups, or [...] medical care, and heating? Somewhat hard 09/25/2023 [facility] of Occupat ional Health - Occupational Stress [...] place to sleep or slept in a snf (including now)? No 09/25/2023 Housing Stability Vital [...] to complete this topic Insurance Care Teams Ecommerce Project Manager Relationship Specialty Start Date End Date Kei Sanchez, JUAN F [address] [place] [address] PCP - General Physician Alodize Machine Operator 09/26/23
[2024-09-24 12:05] LABS: Alanine Aminotransferase 30 U/L (6-50); Albumin Level 4.2 g/dL (3.5-5.1); Alkaline Phosphatase 75 U/L (38-126); Anion Gap 7 mmol/L (4-12); Aspartate Amino Transferase 37 U/L (17-59); Bilirubin,Total 0.7 mg/dL (0.2-1.3); Blood Urea Nitrogen 16 mg/dL (9-20); Calcium 8.8 mg/dL (8.4-10.2); Carbon Dioxide 27 mmol/L (22-30); Chloride 108 mmol/L (98-107); Estimated Glomerular Filt Rate > 60; Glucose 80 mg/dL (65-110); Potassium 4.2 mmol/L (3.4-5.0); Sodium 142 mmol/L (137-145)
== END 2024-09-24 11:05 | disposition home or self-care (01) ==
LOC: ANHLAB 11:05
PROVIDERS: PCP Internal Medicine Hematology & Oncology; Visit Provider Internal Medicine Hematology & Oncology
DX: C71.9 Malignant neoplasm of brain, unspecified (principal)
CPT/HCPCS: 36415; 80047; 80053; 85025

== ENCOUNTER 2024-11-26 06:44 | Outpatient (CLI) | payer OTHER, SELFPAY ==
--- NOTE | ~2024-11-26 | MR_ITS ---
EXAMINATION: MR brain/brain stem wo/w con DATE: 11/26/2024 07:39 INDICATION: Oligodendroglioma TECHNIQUE: Magnetic resonance imaging (MRI) of the brain and brainstem was performed without and with 20 mL Multihance intravenous contrast. Sequences included sagittal and axial T1-weighted SE, axial d iffusion-weighted FS SE, axial 3D SWAN, axial T2-weighted FLAIR, and axial T2-weighted FSE. Postcontr ast axial, sagittal and coronal T1-weighted SE was obtained. Apparent diffusion coefficient (ADC) map s were created. COMPARISON: MR studies dated 09/17/2024 and 04/12/2024 FINDINGS: Status post bilateral frontal craniotomy. Stable appearance of change of resection of the parafalcine anterior frontal lobes and anterior portion of the corpus callosum. No significant interval change i n thin linear enhancements along the resection margins or of the surrounding increased T2 signal, the latter consistent with secondary gliosis related to prior surgery or radiation treatment. There is m ild dural enhancement overlying the surgical bed. No new regions of enhancement identified to suggest residual or locally recurrent disease. There are no areas of restricted diffusion to suggest acute i nfarction. No intracranial hemorrhage or abnormal intracranial mass lesion. There are no intraparench ymal signal abnormalities seen on the other pulse sequences. Unchanged mild left-sided predominant ex vacuo dilation of the frontal horns of the lateral ventricles The ventricles are otherwise symmetric and normal in size. There are no abnormal extra-axial fluid collections. Flow voids are seen in the cerebral arteries on the T2-weighted sequences consistent with their expected patency. Mild mucosal t hickening the paranasal sinuses with large mucous retention cyst in the left maxillary sinus. Visuali zed orbits and soft tissues are unremarkable. IMPRESSION: 1. 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 Reviewed, dictated and finalized at location A. IMPRESSION: 1. Stable appearance of resection of the bilateral parafalcine frontal lobes an d adjacent corpus callosum, reportedly for oligodendroglioma with no evident re sidual or recurrent disease.
--- OUTSIDE RECORDS SUMMARY | 2024-11-26 06:47 | XMS_ITS | Clinical Summary ---
Author Organization [facility] Address [address] [place] [phone] Phone Care Team Providers Care Will Call Clerk Name Role Phone Kei Sanchez Primary Care Provider [phone] Allergies No known active allergies Medications naproxen [...] drink = 0.6 oz pu re alcohol) [facility] Utilities Answer Date Recorded In the past 12 months has th e electric, gas, oil, or water company threatened to shut off services in your home? No 09/25/2023 Social Connection and Isolation Panel Answer Date Recorded In a typical week, how many times do you talk on the phone with family, friends, or neighbors? Never 09/25/2023 How often do you get together with friends or re latives? Once a week 09/25/2023 How often do you attend cheondoism or anglican serv ices? Never 09/25/2023 Do you belong to any clubs o r organizations such as cheondoism groups, unions, fraternal or athletic groups, or [...] medical care, and heating? Somewhat hard 09/25/2023 [facility] - Occupational Stress Questionnaire Answer Date [...] place to sleep or slept in a prison (including now)? No 09/25/2023 Housing Stability Vital [...] Virus (HCV) Screening 1986 TdaP Immunization 1986 Human Papillomavirus (HPV) Immunization (1 - Male 3-dose series) 2001 SARS-COV-2 Immunization (3 - season) 2024 09/14/2020, 08/17/2020 Influenza Immunization (#1) 2025 Respiratory Syncytial Virus (RSV) Immunization (Adult) (1 [...] to complete this topic Insurance Care Teams Will Call Clerk Relationship Specialty Start Date End Date Kei Sanchez, JUAN F [address] [place] [address] PCP - General Physician Monorail Operator 09/26/23
--- OUTSIDE RECORDS SUMMARY | 2024-11-26 06:47 | XMS_ITS | Clinical Summary ---
Author Organization [facility] [employer] Address [address] [place] [address] Care Team Providers Care Microwave Radio Technician Name Role Phone Unavailable Primary Care Provider Unavailabl e Source Comments [facility],non-owned Affiliates and Associated Physician Practices is amultiple site organization consisting of ambulatory clinics and hospital sitesin [place], [place], [place] and [place]. This disclosure is being madepursuant to the Care Everywhere program and may not contain all information available regarding this patient. Last updated 18.[facility] [employer] Allergies No known active allergies Medications * [...] Recorded Patient Health Questionnaire-2 Score 0 11/30/2023 [facility] [place] of Occupat ional Health - Occupational Stress [...] place to sleep or slept in a fci (including now)? 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 Not on file Not [...] 9:45 AM CDT Height 181.3 cm (5' 11.38) 12/26/2023 4:18 PM C DT Body Mass Index 28.84 12/26/2023 4:18 PM CDT Plan of Treatment Health Maintenance Due Date Last Done Comments HIV SCREENING 2001 HEPATITIS C SCREENING 04/19/2004 DTAP/TDAP/TD VACCINES (1 - Tdap) 2005 HEPATITIS B VACCINE (1 of 3 - 19+ 3-dose series) 2005 HPV VACCINE (1 - 3-dose SCDM series) 2013 COVID-19 VACCINE (3 - 2023-2 5 season) 2024 09/14/2020, 08/17/2020 DEPRESSION SCREENING 05/09/2024 11/30/2023 INFLUENZA VACCINE (#1) 2025 ZOSTER VACCINE (1 of 2) 2036 [...] this topic Medical Devices Implanted Type Area State Farm Agent Device Identifier Shelf Expiration Date Model / Serial / Lot Graft Tissue Drgn + Bvn Clgn Mtrx 5x4in Implanted:Qty: 1 on 11/09/2023 by Guillermo Tapia MD at [facility] Brain Integra Neurosciences [id number] / / Cover Bur Hl .4mm 7mm Unv Neuro Iii Ti Implanted:Qty: 4 on 11/09/2023 by Miky Barger MD at [facility] Cranial [place] Craniomaxillofacial [id number] / / Screw 1.5mm 4mm Slf Drl Ax Stab Unv Implanted:Qty: 15 on 11/09/2023 by Miky Barger MD at [facility] Cranial [place] Craniomaxillofacial [id number] / / Cerebroflo Evd Catheter Implanted:Qty: 1 on 11/09/2023 by Miky Barger MD at [facility] Brain 01/13/2025 [id number] / [id number] Insurance MED[place]ID - [place] Advance Directives Documents on File Type Date Recorded Patient Anthropology Lecturer Expl anation Adv Directive/Living Will/POA 11/11/2023 9:45 AM Adv Directive/Living Will/POA 11/08/2023 2:18 PM * Full Code (Latest Code Status on File) Date Activated Date Inactivated Comments 11/03/2023 5:03 PM 11/15/2023 5:11 PM
--- OUTSIDE RECORDS SUMMARY | 2024-11-26 06:47 | XMS_ITS | Clinical Summary ---
Author Organization [facility] Familia hubbard Kunal Address [address] [place] [address] Care Team Providers Care Respiratory Manager Name Role Phone Unavailable Primary Care [...] Encounters Date Type Department Care Team Description 09/27/2024 Orders Only [facility] Oncology and Hematology [facility] [address] [place] [address] Genaro Dubose MD 09/26/2024 External Device Data STL ABSTRACTION Provider, Abstract 09/25/2024 External Device Data STL ABSTRACTION Provider, Abstract 09/24/2024 11:15 AM CDT Office Visit [facility] Oncology and Hematology - [place] [address] [place] [address] Genaro Dubose MD 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 Abstract [facility] Oncology [facility] Hematology [facility] [address] [place] [address] Genaro Dubose MD from Last 3 Months Family History Medical [...] Care Team (Late st Contact Info) Description 12/12/2024 2:00 PM CDT Office Visit [facility] Oncology and Hematology - [place] [address] [facility] [address] [place] [address] Genaro Dubose MD [address] [facility] [address] [place] [address] Health Maintenance Due Date Last Done Comments Pre-Diabetes and Diabetes Screening 1986 DTAP/TDAP/TD VACCINES (1 - Tdap) 2005 COVID-19 Vaccine (3 - season) 2024 09/14/2020, 08/17/2020 INFLUENZA VACCINE (#1) 2024 HEPATITIS B VACCINES Completed 05/15/1998, 12/26/1997, 11/21/1997 HPV VACCINES Aged Out No longer eligi ble based on patient's age to complete this topic Procedures Procedure Name Priority Date/Time Associated Diagnosis Comments BASIC METABOLIC PANEL Routine 09/24/2024 4:24 PM CDT COMPREHENSIVE METABOLIC PANEL Routine 09/24/2024 4:23 PM CDT from Last 3 Months Results * BASIC METABOLIC PANEL (09/24/2024 4:24 PM CDT) Blood Genaro Dubose MD CHEMISTRY ORDERABLES Final Resu lt * COMPREHENSIVE METABOLIC PANEL (09/24/2024 4:23 PM CDT) Blood Genaro Dubose MD CHEMISTRY ORDERABLES Final Resu lt from Last 3 Months Insurance MEDICAID RX [employer] Commercial RX [employer] Commercial
== END 2024-11-26 06:45 | disposition home or self-care (01) ==
PROVIDERS: PCP Internal Medicine Hematology & Oncology; Visit Provider Internal Medicine Hematology & Oncology
DX: C71.9 Malignant neoplasm of brain, unspecified (principal)
CPT/HCPCS: 70553; A9577

== ENCOUNTER 2024-12-12 13:49 | Outpatient (CLI) | payer OTHER, SELFPAY ==
--- OUTSIDE RECORDS SUMMARY | 2024-12-12 13:57 | XMS_ITS | Clinical Summary ---
Author Organization [facility] Familia hubbard Kunal Address [address] [place] [address] Care Team Providers Care Film Spooler Name Role Phone Unavailable Primary Care Provider [...] Encounters Date Type Department Care Team Description 12/03/2024 Orders Only [facility] Oncology and Hematology - [place] [address] [place] [address] Genaro Dubose MD 09/27/2024 Orders Only [facility] Oncology and Hematology - [place] [address] [place] [address] Genaro Dubose MD 09/26/2024 External Device Data STL ABSTRACTION Provider, Abstract 09/25/2024 External Device Data STL ABSTRACTION Provider, Abstract 09/24/2024 11:15 AM CDT Office Visit [facility] Oncology and Hematology - [place] [address] [place] [address] Genaro Dubose MD 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 Abstract [facility] Oncology and Hematology [address] [place] [address] Genaro Dubose MD from Last [...] Description 12/12/2024 2:00 PM CDT Office Visit [facility] Oncology and Hematology - [place] [address] [facility] [address] [place] [address] Genaro Dubose MD [address] [facility] [address] [place] [address] Health Maintenance Due Date Last Done Comments Pre-Diabetes and Diabetes Screening 1986 HPV VACCINES (1 - Male 3-dose series) 2001 DTAP/TDAP/TD VACCINES (1 - Tdap) 2005 Preventative Visit-Managed Medicaid 2005 COVID-19 Vaccine ( season) 01/08/202401/2021, 08/17/2020 INFLUENZA VACCINE (#1) 2024 HEPATITIS B VACCINES Completed 05/15/1998, 12/26/1997, 11/21/1997 Procedures Procedure Name Priority Date/Time Associated Diagnosis Comments MRI BRAIN W WO CONTRAST Routine 11/27/19 8:40 AM CDT BASIC METABOLIC PANEL Routine 09/24/2024 4:24 PM CDT COMPREHENSIVE METABOLIC PANEL Routine 09/24/2024 4:23 PM CDT from Last 3 Months Results * MRI BRAIN W WO CONTRAST (11/26/2024 8:40 AM CDT) Anatomical Region Laterality Modality Head Magnetic Resonan ce us Genaro Dubose MD MR ORDERABLES Final Result * BASIC METABOLIC PANEL (09/24/2024 4:24 PM CDT) Blood us Genaro Dubose MD CHEMISTRY ORDERABLES Final Resu lt * COMPREHENSIVE METABOLIC PANEL (09/24/2024 4:23 PM CDT) Blood us Genaro Dubose MD CHEMISTRY ORDERABLES Final Resu lt from Last [address] [place] [place] [address] MEDICAID RX [employer] Commercial RX [employer] Commercial
--- OUTSIDE RECORDS SUMMARY | 2024-12-12 13:57 | XMS_ITS | Clinical Summary ---
Author Organization [facility] [place] Address [address] [place] [address] Care Team Providers Care Agriscience Technology Instructor Name Role Phone Unavailable Primary Care Provider Unavailabl e Source Comments [facility],non-owned Affiliates and Associated Physician Practices is amultiple site organization consisting of ambulatory clinics and hospital sitesin [place], [place], [place] and [place]. This disclosure is being madepursuant to the Care Everywhere program and may not contain all information available regarding this patient. Last updated 18.[facility] [place] Allergies No known active allergies Medications * [...] Recorded Patient Health Questionnaire-2 Score 0 11/30/2023 [facility] [place] of Occupat ional Health - Occupational Stress [...] in a senior living (including now)? 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 Not on file [...] this topic Medical Devices Implanted Type Area Wrecking Crane Engine Operator Device Identifier Shelf Expiration Date Model / Serial / Lot Graft Tissue Drgn + Bvn Clgn Mtrx 5x4in Implanted:Qty: 1 on 11/09/2023 by Guillermo Tapia MD at [facility] Brain Integra Neurosciences [id number] / / Cover Bur Hl .4mm 7mm Unv Neuro Iii Ti Implanted:Qty: 4 on 11/09/2023 by Miky Barger MD at [facility] Cranial [place] Craniomaxillofacial [id number] / / Screw 1.5mm 4mm Slf Drl Ax Stab Unv Implanted:Qty: 15 on 11/09/2023 by Miky Barger MD at [facility] Cranial [place]onel Craniomaxillofacial [id number] / / Cerebroflo Evd Catheter Implanted:Qty: 1 on 11/09/2023 by Miky Barger MD at [facility] Brain 01/13/2025 [id number] / [id number] Insurance [place]ICAID - [place] Advance Directives Documents on File Type Date Recorded Patient Engineering Production Liaison Expl anation Adv Directive/Living Will/POA 11/11/2023 9:45 AM Adv Directive/Living Will/POA 11/08/2023 2:18 PM * Full Code (Latest Code Status on File) Date Activated Date Inactivated Comments 11/03/2023 5:03 PM 11/15/2023 5:11 PM
--- OUTSIDE RECORDS SUMMARY | 2024-12-12 13:57 | XMS_ITS | Clinical Summary ---
Author Organization [facility] Address [address] [place] [phone] Phone Care Team Providers Care Crop Duster Helper Name Role Phone Kei Sanchez Primary Care Provider [phone] Allergies No known active allergies Medications naproxen [...] drink = 0.6 oz pu re alcohol) [facility] Utilities Answer Date Recorded In the [...] week 09/25/2023 How often do you attend sabianist or jewish serv ices? Never 09/25/2023 Do you belong to any clubs o r organizations such as sabianist groups, unions, fraternal or athletic groups, or [...] medical care, and heating? Somewhat hard 09/25/2023 [facility] - Occupational Stress Questionnaire Answer Date [...] place to sleep or slept in a long term (including now)? No 09/25/2023 Housing Stability Vital [...] 1986 Human Papillomavirus (HPV) Immunization (1 - 3-dose SCDM series) 2013 SARS-COV-2 Immunization (3 - season) 2024 09/14/2020, [...] to complete this topic Insurance Care Teams Crop Duster Helper Relationship Specialty Start Date End Date Kei Sanchez, JUAN F [address] [place] [address] PCP - General Physician Cruise Staff Member 09/26/23
[2024-12-12 14:01] LABS: Hematocrit 43.0 % (42.0-52.0); Hemoglobin 14.4 g/dL (14.0-18.0); Immature Granulocyte Percent A 0.6 % (0-0.5); Lymphocytes Absolute Auto 1.35 K/mm3 (0.9-3.2); Mean Corpuscular HGB Conc 33.5 g/dl (32-36); Mean Corpuscular Hemoglobin 28.9 pg (26-34); Mean Corpuscular Volume 86.3 fl (80-100); Nucleated Red Blood Cells Absolute Auto 0.000 K/mm3 (0.0-0.012); Nucleated Red Blood Cells Perc 0.0 % (0.0-0.2); Platelet Count Result 211 k/mm3 (150-375); Red Blood Count 4.98 M/mm3 (4.6-6.20); White Blood Count 6.2 K/mm3 (4.5-10.0)
[2024-12-12 14:05] LABS: Blood Urea Nitrogen 18 mg/dL (8-26); Carbon Dioxide 23 mmol/L (22-30); Chloride 103 mmol/L (98-109); Estimated Glomerular Filt Rate > 60; Glucose 119 mg/dL (70-105); Ionized Calcium (POC) 1.22 mmol/L (1.11-1.31); Potassium 3.9 mmol/L (3.5-4.9); Sodium 140 mmol/L (138-146)
[2024-12-12 16:34] LABS: Alanine Aminotransferase 23 U/L (6-50); Albumin Level 4.5 g/dL (3.5-5.1); Alkaline Phosphatase 86 U/L (38-126); Anion Gap 7 mmol/L (4-12); Aspartate Amino Transferase 42 U/L (17-59); Bilirubin,Total 0.5 mg/dL (0.2-1.3); Blood Urea Nitrogen 18 mg/dL (9-20); Calcium 9.4 mg/dL (8.4-10.2); Carbon Dioxide 25 mmol/L (22-30); Chloride 103 mmol/L (98-107); Estimated Glomerular Filt Rate > 60; Glucose 118 mg/dL (65-110); Potassium 4.0 mmol/L (3.4-5.0); Sodium 135 mmol/L (137-145); Total Protein 7.2 g/dL (6.3-8.2)
== END 2024-12-12 13:50 | disposition home or self-care (01) ==
LOC: ANHLAB 13:50
PROVIDERS: PCP Internal Medicine Hematology & Oncology; Visit Provider Internal Medicine Hematology & Oncology
DX: C71.9 Malignant neoplasm of brain, unspecified (principal)
CPT/HCPCS: 36415; 80047; 80053; 85025

== ENCOUNTER 2025-02-15 09:56 | Outpatient (CLI) | payer OTHER, SELFPAY ==
--- NOTE | ~2025-02-15 | MR_ITS ---
EXAMINATION: MR brain/brain stem wo/w con DATE: 02/15/2025 10:42 INDICATION: Oligodendroglioma. TECHNIQUE: Magnetic resonance imaging (MRI) of the brain and brainstem was performed without and with 20 mL MultiHance intravenous contrast. COMPARISON: Brain MRI 11/26/2024, 04/12/2024 FINDINGS: There are changes of resection of the parafalcine frontal lobes and adjacent corpus callosum with old blood products. There is chronic increased T2- weighted signal intensity at the resection margin, consistent with gliosis and/or changes of radiation therapy. There is no acute ischemic infarct or abnormal mass lesion. There is ex vacuo dilatation of the frontal horns of the lateral ventricles. There is mucosal thickening in the paranasal sinuses. The orbits are normal. The mastoid air cells are normal. IMPRESSION: 1. No specific evidence of residual or recurrent tumor. Reviewed, dictated and finalized at location E.
== END 2025-02-15 09:57 | disposition home or self-care (01) ==
PROVIDERS: PCP Internal Medicine Hematology & Oncology; Visit Provider Internal Medicine Hematology & Oncology
DX: C71.9 Malignant neoplasm of brain, unspecified (principal)
CPT/HCPCS: 70553; A9577

== ENCOUNTER 2025-02-22 08:44 | Outpatient (CLI) | payer OTHER, SELFPAY ==
[2025-02-22 08:53] LABS: Hematocrit 47.6 % (42.0-52.0); Hemoglobin 15.8 g/dL (14.0-18.0); Immature Granulocyte Percent A 1.2 % (0-0.5); Lymphocytes Absolute Auto 1.93 K/mm3 (0.9-3.2); Mean Corpuscular HGB Conc 33.2 g/dl (32-36); Mean Corpuscular Hemoglobin 28.6 pg (26-34); Mean Corpuscular Volume 86.1 fl (80-100); Nucleated Red Blood Cells Absolute Auto 0.000 K/mm3 (0.0-0.012); Nucleated Red Blood Cells Perc 0.0 % (0.0-0.2); Platelet Count Result 237 k/mm3 (150-375); Red Blood Count 5.53 M/mm3 (4.6-6.20); White Blood Count 7.3 K/mm3 (4.5-10.0)
--- OUTSIDE RECORDS SUMMARY | 2025-02-22 08:53 | XMS_ITS | Clinical Summary ---
Author Organization [facility] [place] Address [address] [place] [place] [address] Care Team Providers Care Psychotherapist Social Worker Name Role Phone Unavailable Primary Care Provider Unavailabl e Source Comments [facility],non-owned Affiliates and Associated Physician Practices is amultiple site organization consisting of ambulatory clinics and hospital sitesin [place], [place], [place] and [place]. This disclosure is being madepursuant to the Care Everywhere program and may not contain all information available regarding this patient. Last updated 18.[facility] [place] Allergies No known active allergies Medications * [...] RADIATION FOR 42 DAYS 42 capsule 4 Active temozolomide (Temodar) 20 MG capsuleIndicati ons:Brain tumor (HCC) TAKE ONE CAPSULE BY MOUTH ONCE DAILY WITH 140MG CAPSULE, ON AN EMPTY STOMACH, ONE HOUR BEFORE RADIATION FOR 42 DAYS 42 capsule 4 Active Active Problems Problem Noted Date Diagnosed [...] Recorded Patient Health Questionnaire-2 Score 0 11/30/2023 [facility] [place] of Occupat ional Health - Occupational Stress [...] slept in a prison (including now)? 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 on file [...] VACCINE (1 - 3-dose SCDM series) 2013 DEPRESSION SCREENING 05/09/2024 11/30/2023 COVID-19 VACCINE (3 - 2024-2 6 season) 2025 09/14/2020, 08/17/2020 INFLUENZA VACCINE (#1) 2025 ZOSTER VACCINE (1 [...] this topic Medical Devices Implanted Type Area Blend Technician Device Identifier Shelf Expiration Date Model / Serial / Lot Graft Tissue Drgn + Bvn Clgn Mtrx 5x4in Implanted:Qty: 1 on 11/09/2023 by Guillermo Tapia MD at [facility] Brain Integra Neurosciences [id number] / / Cover Bur Hl .4mm 7mm Unv Neuro Iii Ti Implanted:Qty: 4 on 11/09/2023 by Miky Barger MD at [facility] Cranial [place] Craniomaxillofacial [id number] / / Screw 1.5mm 4mm Slf Drl Ax Stab Unv Implanted:Qty: 15 on 11/09/2023 by Miky Barger MD at [facility] Cranial [place] Craniomaxillofacial [id number] / / Cerebroflo Evd Catheter Implanted:Qty: 1 on 11/09/2023 by Miky Barger MD at [facility] Brain 01/13/2025 [id number] Insurance [place] Advance Directives Documents on File Type Date Recorded Patient Supervisor Poultry Hatchery Expl anation Adv Directive/Living Will/POA 11/11/2023 9:45 AM Adv Directive/Living Will/POA 11/08/2023 2:18 PM * Full Code (Latest Code Status on File) Date Activated Date Inactivated Comments 11/03/2023 5:03 PM 11/15/2023 5:11 PM
--- OUTSIDE RECORDS SUMMARY | 2025-02-22 08:53 | XMS_ITS | Encounter Summary ---
Author Organization [facility] [place] [facility] Address [address] [place] [address] Care Team Providers Care Chemical Equipment Controller Name Role Phone Unavailable Primary Care Provider Unavailabl e Encounter Details Date Type Department Care Team ([facility] Contact Info) Description 02/19/2025 Orders Only [facility] Oncology and Hematology [facility] [address] [place] [address] Genaro Dubose MD [address] [place] [address] [employer] [address] [place] [phone] Social History Tobacco Use Types Packs/Day [...] Upcoming Encounters Date Type Department Care Team ([facility] Contact Info) Description 02/22/2025 9:00 AM CDT Office Visit [facility] Oncology and Hematology - Saulo Marina [address] [place] [address] Genaro Dubose MD [facility] burrp! [address] [place] [phone] Arrived documented as of this encounter Procedures Procedure Name Priority Date/Time Associated Diagnosis Comments MRI BRAIN W WO CONTRAST Routine 02/15/2025 2:40 PM CDT documented in this encounter Results * MRI BRAIN W WO CONTRAST (02/15/2025 2:40 PM CDT) Anatomical Region Laterality Modality Head Magnetic Resonan ce us Genaro Dubose MD MR ORDERABLES Final Result documented in this encounter Visit Diagnoses Not on filedocumented in this encounter
--- OUTSIDE RECORDS SUMMARY | 2025-02-22 08:53 | XMS_ITS | Clinical Summary ---
Author Organization [facility] Address [address] [place] [phone] Phone Care Team Providers Care Studio Operation Engineer Name Role Phone Kei Sanchez Primary Care Provider [phone] Allergies No known active allergies Medications naproxen [...] drink = 0.6 oz pu re alcohol) [facility] Utilities Answer Date Recorded In the [...] week 09/25/2023 How often do you attend shinto or adventism serv ices? Never 09/25/2023 Do you belong to any clubs o r organizations such as shinto groups, unions, fraternal or athletic groups, or [...] medical care, and heating? Somewhat hard 09/25/2023 [facility] - Occupational Stress Questionnaire Answer Date [...] Immunization (1 - 3-dose SCDM series) 2013 Influenza Immunization (#1) 2025 SARS-COV-2 Immunization (3 - 2024- season) 2025 09/14/2020, 08/17/2020 Respiratory Syncytial Virus (RSV) Immunization [...] to complete this topic Insurance Care Teams Studio Operation Engineer Relationship Specialty Start Date End Date Kei Sanchez, JUAN F [address] [place] [address] PCP - General Physician Curing Press Operator 09/26/23
--- OUTSIDE RECORDS SUMMARY | 2025-02-22 08:53 | XMS_ITS | Clinical Summary ---
Author Organization [facility] [place]am[place] Address [address] [place] [address] Care Team Providers Care Director Human Services Name Role Phone Unavailable Primary Care Provider Unavailabl e Allergies No known active allergies Medications ondansetron (ZOFRAN) 8 mg Tablet Take 1 Tablet (8 mg) by mouth 20 minutes before MRI. 1 Tablet 02/13/2025 Active Active Problems No known active problems Encounters Date Type Department Care Team Description 02/19/2025 Orders Only [facility] Oncology and Hematology - Saulo Tello [address] [place] [phone] Genaro Dubose MD 02/13/2025 Telephone [facility] Oncology and Hematology - Saulo Kunal [address] [place] [address] Genaro Dubose MD MRI Questions 12/26/2024 External Device Data STL ABSTRACTION Provider, Abstract 12/13/2024 Orders Only [facility] Oncology and Hematology - Saulo [address] [place] [address] Genaro Dubose MD 12/12/2024 2:00 PM CDT Office Visit [facility] Oncology and Hematology - Saulo Marina [address] [facility] [place] [place] [address] Genaro Dubose MD 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 Orders Only [facility] Oncology and Hematology - Saulo [address] [place] [address] Genaro Dubose MD from Last [...] Sign Reading Time Taken Comments Blood Pressure 121/81 12/12/2024 2:17 PM CDT Pulse 70 12/12/2024 2:17 PM CDT Temperature 36.6 C (97.8 F) 12/12/2024 2:17 PM CDT Respiratory Rate 15 12/12/2024 2:17 PM CDT Oxygen Saturation 97% 12/12/2024 2:17 PM CDT Inhaled Oxygen Concentration - - Weight 99.6 kg (219 lb 9.6 oz) 12/12/2024 2:17 P M CDT Height 182.9 cm (6') 01/27/2024 2:11 PM CDT Body Mass Index 29.78 01/27/2024 2:11 PM CDT Plan of Treatment Upcoming Encounters Date Type Department Care Team (Late st Contact Info) Description 02/22/2025 9:00 AM CDT Office Visit [facility] Oncology and Hematology - Saulo [address] [address] [place] [address] Genaro Dubose MD [address] [place] [address] Arrived Health Maintenance Due Date Last Done Comments Pre-Diabetes and Diabetes Screening 1986 DTAP/TDAP/TD VACCINES (1 - Tdap) 2005 Preventative Visit-Managed Medicaid 2005 HPV VACCINES (1 - 3-dose SCDM series) 2013 INFLUENZA VACCINE (#1) 2024 COVID-19 Vaccine ( season) 01/07/202501/2021, 08/17/2020 HEPATITIS B VACCINES Completed 05/15/1998, 12/26/1997, 11/21/1997 Procedures Procedure Name Priority Date/Time Associated Diagnosis Comments MRI BRAIN W WO CONTRAST Routine 02/16/20 25 2:40 PM CDT COMPREHENSIVE METABOLIC PANEL Routine 12/12/2024 12:36 PM CDT BASIC METABOLIC PANEL Routine 12/12/2024 12:27 PM CDT CBC WITH AUTODIFFERENTIAL Routine 2024 12:27 PM CDT MRI BRAIN W WO CONTRAST Routine 11/27/19 25 8:40 AM CDT from Last 3 Months Results * MRI BRAIN W WO CONTRAST (02/15/2025 2:40 PM CDT) Only the most recent of2 resultswithin the time period is included. Anatomical Region Laterality Modality Head Magnetic Resonan ce us Genaro Dubose MD MR ORDERABLES Final Result * COMPREHENSIVE METABOLIC PANEL (12/12/2024 12:36 PM CDT) Blood us Genaro Dubose MD CHEMISTRY ORDERABLES Final Resu lt * BASIC METABOLIC PANEL (12/12/2024 12:27 PM CDT) Blood us Genaro Dubose MD CHEMISTRY ORDERABLES Final Resu lt * CBC WITH AUTODIFFERENTIAL (12/12/2024 12:27 PM CDT) Blood us Genaro Dubose MD HEMATOLOGY ORDERABLES Final Res ult from Last 3 Months Insurance MEDICAID [employer] Commercial [employer] Commercial
[2025-02-22 08:56] LABS: Blood Urea Nitrogen 14 mg/dL (8-26); Carbon Dioxide 26 mmol/L (22-30); Chloride 104 mmol/L (98-109); Estimated Glomerular Filt Rate > 60; Glucose 92 mg/dL (70-105); Ionized Calcium (POC) 1.19 mmol/L (1.11-1.31); Potassium 3.8 mmol/L (3.5-4.9); Sodium 142 mmol/L (138-146)
== END 2025-02-22 08:45 | disposition home or self-care (01) ==
LOC: ANHLAB 08:45
PROVIDERS: PCP Internal Medicine Hematology & Oncology; Visit Provider Internal Medicine Hematology & Oncology
DX: C71.9 Malignant neoplasm of brain, unspecified (principal)
CPT/HCPCS: 36415; 80047; 85025